=== PATIENT | female | born 1980 | race Caucasian/White ===

== ENCOUNTER 2017-01-15 14:52 | Inpatient (IN) | payer OTHER ==
[~2017-01-15] VITALS: Ht 172.7 cm; Wt 87.5 kg
[~2017-01-15 14:52] MED LIST: /DULO30CA OR; /PROM25SU; ACET30TA PO; ASTELIN NASAL; ATARAX25 PO; BENT20TA PO; CLARITIN10 PO; CLON1TAB PO; DARVOCET-N PO; EFFE150C PO; EFFEXOR XR PO; FENT100D25; FLAG250T PO; LOTRCRE; MIRA255PW PO; MOBIC15 PO; NAPROS500 PO; NEXIUM40 PO; NIZORALCR TOP; NORCO PO; OPTIVAR OPTHALMIC; PAXI40TA; PEPC20TA2; PERC5TAB8; PHENERGAN; PHENERGAN PO; PRIL20CA9 PO; PROM125TA PO; PROZ20CA11 PO; REGLAN10 PO; SENO8.6T9 PO; TORADOL PO; TRAM50TA2; TYLENOL#3 PO; VICO5TA PO; XANA0.25; XANA0.25 PO; XANA1TAB2 PO; ZOLO100T PO; ZOLO50TA PO; [UNRECOGNIZED DRUG - CODE] PO
[2017-01-15 15:48] LABS: MEAN CORPUSCULAR HEMOGLOBIN 31.7 pg (27.0-33.0); MEAN CORPUSCULAR HGB CONC 34.1 g/dl (32.0-36.5); RED CELL DISTRIBUTION WIDTH 12.9 % (11.5-14.5); WHITE BLOOD COUNT 9.5 K/mm3 (4.0-10.0)
[2017-01-15 16:08] LABS: CONTROL LINE HCG INT CTR LINE PRESENT
[2017-01-15 16:25] LABS: ALBUMIN 3.8 GM/DL (3.2-5.2); ALBUMIN/GLOBULIN RATIO 1.03 (1.00-1.93); ALKALINE PHOSPHATASE 96 U/L (45-117); ALT/SGPT 53 U/L (12-78); ANION GAP 10 MEQ/L (8-16); AST/SGOT 23 U/L (15-37); BILIRUBIN,DIRECT < 0.1 MG/DL (0.0-0.2); BILIRUBIN,TOTAL 0.4 MG/DL (0.2-1.0); BLOOD UREA NITROGEN 9 MG/DL (7-18); CARBON DIOXIDE LEVEL 23 MEQ/L (21-32); CHLORIDE LEVEL 105 MEQ/L (98-107); CREATININE FOR GFR 0.77 MG/DL (0.55-1.02); GLOMERULAR FILTRATION RATE > 60.0 (>60); GLUCOSE, FASTING 105 MG/DL (70-105); POTASSIUM SERUM 3.9 MEQ/L (3.5-5.1); SODIUM LEVEL 138 MEQ/L (136-145); TOTAL PROTEIN 7.5 GM/DL (6.4-8.2)
--- NOTE | 2017-01-15 18:22 | ECGEPIP ---
Stationary ECG Study [facility] - ED Test Date: 2017-01-15 Pat Name: SEGUNDO MCLAUGHLIN Department: Room: - Gender: F Billing Supervisor: DENIA : 1980 Requested By: ESTEBAN Gracia Order Number: [id number] Reading MD: Hank Gaming Measurements Intervals [place] Rate: 59 P: 3 RI: 149 QRS: 59 QRSD: 92 T: 40 QT: 410 QTc: 407 Interpretive Statements SINUS BRADYCARDIA WITH SINUS ARRHYTHMIA Electronically Signed On 01-15-2017 18:22:25 EST by Hank Gaming
[2017-01-15 19:47] LABS: AMPHETAMINES LEVEL URINE NEGATIVE (NEGATIVE); BENZODIAZEPINES URINE NEGATIVE (NEGATIVE); COCAINE METABOLITE URINE NEGATIVE (NEGATIVE); CONTROL LINE INT CTR LINE PRESENT; METHADONE URINE NEGATIVE (NEGATIVE); OPIATES URINE NEGATIVE (NEGATIVE); TRICYCLIC ANTIDEPRESS URINE NEGATIVE (NEGATIVE)
[2017-01-15] MEDS: SERTRALINE 100 MG TAB PO SCH (21:00)
[2017-01-15] MEDS ORDERED: LORazepam 1 MG TAB As Ordered ONE (21:06)
[2017-01-15] MEDS ORDERED: ONDANSETRON 4 MG ORAL DISINTEGRATING TAB (S0181) As Ordered ONE (22:35)
[2017-01-15] MEDS ORDERED: SERT-138 PO (23:14)
[2017-01-15] MEDS ORDERED: SUBO8MIS SL (23:14)
[2017-01-15] MEDS ORDERED: XANA1TAB2 PO (23:14)
[2017-01-15] MEDS ORDERED: DIPH50CA PO (23:14)
[2017-01-15] MEDS ORDERED: diphenhydrAMINE INJ 50MG/ML VIAL (J1200) As Ordered ONE (23:25)
[2017-01-15] MEDS ORDERED: HALOPERIDOL 5 MG/ML VIAL (J1630) As Ordered ONE (23:25)
[2017-01-16] MEDS ORDERED: NICOTINE 21MG/24HR 1 EA TRANSDERMAL As Ordered ONE (00:18)
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
--- NOTE | 2017-01-16 01:37 | EDDOCDS ---
Physician Documentation [facility] Name: Lyndsay Baugh Age: 36 yrs Sex: Female : 1980 Arrival Date: 01/15/2017 Time: 14:52 Bed U2 Private MD: Disposition: 01/15/17 22:46 Hospitalization ordered by Heriberto Bauman for Inpatient Admission. Preliminary diagnosis is Major depressive disorder, recurrent. - Bed requested for Admit. - Status is Inpatient Admission. sls1 - Condition is Stable. - Problem is an ongoing problem. - Symptoms have improved. Historical: - Allergies: Codeine Sulfateabdominal pain; Latex (Rash); Levaquin (Rash); Morphine (did not relieve pain)anxiety and makes the pain worse; Reglan (anxious); SULFA (SULFONAMIDES) (Rash); Zofrandoesn't work for her anymore; - Home Meds: 1. Effexor XR 75 mg Oral cp24 1 cap once daily 2. Klonopin 1 mg Oral tab 1 tab four times a day 3. SUBOXONE 8 MG daily - PMHx: Anxiety; Depression; Substance Abuse; - PSHx: Tonsillectomy; D & C; Cholecystectomy; (December 07, 2015); - Social history: Smoking status: Patient uses tobacco products, heavy tobacco smoker. No barriers to communication noted. - Family history: Not pertinent. - : The pt / caregiver states he / she is not on anticoagulants. Home medication list is obtained from the patient. - Exposure Risk Screening:: None identified. HELMET COVERER: 01/15 15:05 PT UNSURE OF LMP. STATES, "IT WAS SOMETIME RECENT". mb9 Vital Signs: 15:05 BP 148 / 82; Pulse 73; Resp 17; Temp 97.4(T); Pulse Ox 98% ; Weight 81.65 kg / 180.01 mb9 lbs; Height 5 ft. 8 in. (172.72 cm); Pain 0/10; 15:37 BP 130 / 78 (auto/); js13 15:37 Pulse 73 MON; Resp 14; Pulse Ox 98% on R/A; js13 15:45 BP 128 / 68 (auto/); js13 15:45 Pulse 69 MON; Resp 14; Pulse Ox 100% on R/A; js13 16:00 BP 126 / 71 (auto/); js13 16:00 Pulse 79 MON; Resp 14; Pulse Ox 100% on R/A; js13 16:14 Pulse 73 MON; Resp 14; Pulse Ox 98% on R/A; js13 16:15 BP 126 / 58 (auto/); js13 21:48 BP 138 / 78; Pulse 73; Resp 20; Temp 98.5; Pulse Ox 97% ; Pain 9/10; mas 01/16 01:33 BP 129 / 72; Pulse 81; Resp 18; Temp 98.1(T); Pulse Ox 98% ; Pain 7/10; mas 01/15 15:05 Body Mass Index 27.37 (81.65 kg, 172.72 cm) mb9 MDM: 01/15 14:56 Consult PFS/PSA/Media Services Specialist ordered. ml6 14:56 Consult PFS/PSA/Media Services Specialist: Patient's case requires discussion with on-call ml6 Psychiatrist ordered. 14:56 PSA/PFS to call Nursing [employer], to enter patient data on [place] Safe Act if patient ml6 involuntarily admitted or transferred for SI or HI ordered. 14:56 Confirm accurate psychiatric medication list and times of last dosage ordered. ml6 14:56 Detain Pt Until Medically/PFS Cleared ordered. ml6 14:57 Acetaminophen Level Ordered. EDMS 14:57 Basic Metabolic Profile Ordered. EDMS 14:57 Complete Blood Count Ordered. EDMS 14:57 Drug Eval Toxicology ED Only Ordered. EDMS 14:57 Ethyl Alcohol (ethanol) Ordered. EDMS 14:57 HCG,Serum Qualitative Ordered. EDMS 14:57 Liver Profile Ordered. EDMS 14:57 Salicylate Level Ordered. EDMS 14:57 Thyroid Stimulating Hormone Ordered. EDMS 15:26 ECG WITH READING ER PHYS+CARDIAG ordered. EDMS 15:26 IV Saline Lock ordered. br1 15:26 Director Of Corporate Responsibility/Pulse Ox/q 30 min VS ordered. br1 15:26 Call Poison Control ordered. br1 15:41 NS 0.9% 1000 ml IV at 100 mL/hr continuous ordered. br1 16:53 Acetaminophen Level Reviewed. br1 16:53 Salicylate Level Reviewed. br1 16:53 Thyroid Stimulating Hormone Reviewed. br1 16:53 Basic Metabolic Profile Reviewed. br1 16:53 Complete Blood Count Reviewed. br1 16:53 Ethyl Alcohol (ethanol) Reviewed. br1 16:53 HCG,Serum Qualitative Reviewed. br1 16:53 Liver Profile Reviewed. br1 17:55 Financial registration complete. gjb 18:05 [facility] Payment Agreement was scanned into [employer] and attached to record. gjb 19:03 EKG-ADULT Reviewed. br1 19:41 Consult PFS/PSA/Media Services Specialist complete. ml4 19:41 Consult PFS/PSA/Media Services Specialist: Patient's case requires discussion with on-call ml4 Psychiatrist complete. 19:41 PSA/PFS to call Nursing [employer], to enter patient data [place] Safe [place] if patient ml4 involuntarily admitted or transferred for SI or HI complete. 19:56 Drug Eval Toxicology ED Only Reviewed. cs11 19:57 Consult PFS/PSA/Socail Worker: Cleared medically for eval ordered. cs11 20:56 LORazepam 1 mg PO once ordered. cs11 21:02 Admit to [facility]: ordered. EDMS 21:24 [facility] Legal paperwork was scanned into [employer] and attached to record. ml4 21:27 Ondansetron ODT Oral Disintegrating Tablet 8 mg PO once ordered. cs11 21:32 Consult PFS/PSA/Socail Worker: Cleared medically for eval complete. ml4 22:43 Nicotine Patch 21 mg/24 hr 1 applic Transdermal once ordered. cs11 22:47 BED REQUEST+ADM ordered. EDMS 23:22 diphenhydrAMINE 25 mg IM once ordered. cs11 23:22 -Haloperidol Lactate 2.5 mg IM once ordered. cs11 Administered Medications: 15:43 Drug: NS 0.9% 1000 ml [sodium chloride 0.9 % intravenous solution] Route: IV; Rate: 100 js13 mL/hr; Site: right forearm; 21:10 Drug: LORazepam 1 mg [lorazepam 1 mg tablet (1 tabs)] Route: PO; sls1 22:42 Drug: Ondansetron ODT 8 mg [ondansetron 4 mg disintegrating tablet (2 tabs)] Route: PO; af2 01/16 00:23 Follow up: Response: No significant change. af2 01/15 23:21 CANCELLED (Other Intervention Used): Metoclopramide 10 mg PO once cs11 23:31 Drug: -Haloperidol Lactate 2.5 mg [haloperidol lactate 5 mg/mL injection solution (0.5 af2 mL)] Route: IM; Site: left deltoid; 01/16 00:23 Follow up: Response: Anxiety is improved af2 01/15 23:32 Drug: diphenhydrAMINE 25 mg [diphenhydramine 50 mg/mL injection solution (0.5 mL)] af2 Route: IM; Site: right deltoid; 01/16 00:23 Follow up: Response: Anxiety is improved af2 00:35 Drug: Nicotine 1 applic [nicotine 21 mg/24 hr daily transdermal patch (1 patches)] af2 Route: Transdermal; Site: left upper arm; Signatures: Dispatcher [employer] EDMS Chantelle Manning, PSA PSA ml4 Jorge Alberto Pena MD MD br1 Aidan Fatima RN RN ml6 Yessy Mcleod RN RN sls1 Tabatha SethRN RN js13 Gatito Marshall, DO cs11 Ronald AburtoRN RN mb9 Maria A Taylor Amber RN af2 The chart was reviewed and I authenticate all verbal orders and agree with the evaluation and treatment provided.Corrections: (The following items were deleted from the chart) 01/15 23:21 22:46 Metoclopramide 10 mg PO once ordered. cs11 cs11 Attachments: 18:05 [facility] Payment Agreement gera MTDD
[2017-01-16] MEDS ORDERED: MOM 30ML SUSPENSION UDC PO PRN (02:15)
[2017-01-16] MEDS ORDERED: ACETAMINOPHEN TAB 650MG DOSE (2X325MG) PO PRN (02:15)
[2017-01-16 03:35] VITALS: BP 154/98
[2017-01-16] MEDS ORDERED: ALPRAZolam 0.5 MG TAB PO ONE (03:45)
[2017-01-16] MEDS: SERTRALINE 100 MG TAB PO SCH (07:50)
[2017-01-16] MEDS: BUPRENORPHINE/NALOXONE 8-2MG SUBLINGUAL TABLET(SUBOXONE) SL SCH (07:51)
[2017-01-16] MEDS: NICOTINE 21MG/24HR 1 EA TRANSDERMAL TD SCH (07:51)
[2017-01-16] MEDS ORDERED: ALPRAZolam 0.25 MG TAB PO SCH (09:00)
[2017-01-16] MEDS: HYDROCORTISONE 1% CREAM 30 GM TOP SCH ×2 (09:00→21:29)
--- NOTE | 2017-01-16 11:14 | HPEPDOC ---
Medical History and Physical Date of Admission Jan 16, 2017 at 01:40 History and Physical PCP: Dr Linda Rhodes ATTENDING: Dr. Primitivo Logan HPI: 36yoF admitted to [facility] for MDD, being medically examined today. Patient states she has had some vomiting. Also some diarrhea. She has felt some chills. She denies fever. Denies any weakness, fatigue, LACEY, CP, SOB, cough, palpitations , abdominal pain, N/V/D or changes in bowel or bladder habits. PMHx: Anxiety Depression Substance use currently on Suboxone prescribed by Dr. Moreno [facility] monthly. Insomnia Tobacco use PSHX: Tonsillectomy D&C Cholecystectomy SOCHX: Resides in: [place] Marital Status: Kids: 1 Employment: Unemployed Tobacco use: One pack per day ETOH: Denies Illicit Drugs: Heroin 15 years IV Drug Use: Heroin Patient states screened for HIV and hepatitis within the past 9 months, negative. Declines rescreening. Tattoos done unprofessionally: Denies FAMHX: Mother: Alive, well Father: Alive, history of substance use Siblings: Alive, well Children: Alive, well Unexpected deaths due to medical reasons: None. ROS: As noted in HPI, otherwise 11pt ROS of systems reviewed and remarkable only for LMP unknown PE: GEN: 36 yo F, appears stated age. Well-nourished, well developed. No acute distress. Alert and oriented x 3. Pleasant, interactive. HEENT: Normocephalic, atraumatic. Pupils are equal, round, and reactive to light. Extraocular movements are intact. No nystagmus appreciated. Sclera are nonicteric. Conjunctiva without injection. Nose midline. Nasal turbinates without bogginess. EACs both patent BL. TMs both visualized and epperson with good cone of light, no bulging or erythema. No facial asymmetry. Moist mucous membranes. Dentition fair. Pharynx pink and moist, no cobblestoning. Neck supple , trachea midline. No lymphadenopathy or thyromegaly appreciated. CHEST: Regular rate and rhythm, +S1, +S2 LUNGS: Clear to auscultation bilaterally. No wheezes, rales, or rhonchi. Breathing appears symmetric and easy. Patient is speaking in full sentences. No accessory muscle use. ABD: Round, soft, non-tender, non-distended. +Bowel sounds throughout. No rebound or guarding. No costovertebral angle tenderness. EXT: Pulses 2+ bilaterally dorsalis pedis and radial. No lower extremity edema appreciated. SKIN: [place], dry, warm. Capillary refill <2sec. Excoriation is noted at the right hand, mild erythema, no other rashes. NEURO: Alert and oriented x 3. Cranial nerves III-XII are intact. No focal deficits appreciated. EK01/16/17 SR with SA 59 bpm. A&P: 36yoF admitted to [facility] for MDD, 1. Psych. Plan per Psychiatry. EKG on file. 2. Nicotine dependence. Patch available. 3. Abnormal TSH. Recheck TSH and free T4. 4. Follow up with PCP on discharge. Dr Rhodes. 5. Substance use. Per psychiatry. 6. Diarrhea. Patient with no abdominal pain currently. States she is eating and drinking well. GI panel with recurrent symptoms. 7. Rash, right hand. Apply hydrocortisone cream twice a day as needed. 8. Staff member present throughout exam, Albertina VILLALOBOS. Vital Signs Vital Signs Label Value Date Time Patient Temperature 97.6 degrees F 01/16/17 0335 Pulse 102 01/16/17 0335 Respiratory Rate 20 bpm 01/16/17 0335 Blood Pressure Assessment 154/98 (116) 01/16/17 0335 Laboratory Data Labs 24H Laboratory Tests 2 01/15/17 15:38: Acetaminophen Level < 2.0L, Aspartate Amino Transf (AST/SGOT) 23, Alanine Aminotransferase (ALT/SGPT) 53, Alkaline Phosphatase 96, Total Bilirubin 0.4, Direct Bilirubin < 0.1, Albumin 3.8, Albumin/Globulin Ratio 1.03, Anion Gap 10, Calcium Level 9.0, Ethyl Alcohol Level < 0.003, Glomerular Filtration Rate > 60.0, Human Chorionic Gonadotropin, Qual NEGATIVE, Salicylates Level 3.9L, Thyroid Stimulating Hormone (TSH) 0.303L, Total Protein 7.5 01/15/17 18:48: Urine Amphetamine Level NEGATIVE, Urine Benzodiazepines Screen NEGATIVE, Urine Cannabinoids NEGATIVE, Urine Cocaine Metabolite NEGATIVE, Urine Opiates Screen NEGATIVE, Urine Barbiturates, Qualitative NEGATIVE, Urine Methadone Screen NEGATIVE, Urine Tricyclic Antidepressants NEGATIVE CBC/BMP Laboratory Tests 01/15/17 15:38 Red Blood Count 4.87, Mean Corpuscular Volume 93.0, Mean Corpuscular Hemoglobin 31.7, Mean Corpuscular Hemoglobin Concent 34.1, Red Cell Distribution Width 12.9 Home Medications Scheduled Alprazolam (Xanax) 1 Mg Tab 1 MG PO QID Buprenorphine/Naloxone (Suboxone 8-2 mg) 1 Mis Mis 1 MIS SL DAILY Diphenhydramine HCl (Diphenhydramine HCl) 50 Mg Cap 50 MG PO QHS Sertraline HCl (Sertraline HCl) 100 Mg Tab 100 MG PO BID Allergies Coded Allergies: Codeine (Verified Allergy, Intermediate, SWELLING (non-specified), 03/01/13) Cephalosporins (Verified Allergy, Mild, POSSIBLY RASH, 03/01/13) Quinolones (Verified Allergy, Mild, POSSIBLE RASH, 03/01/13) Sulfa Drugs (Verified Allergy, Mild, RASH, 03/01/13) Sulfa Drugs Cross Reactors (Verified Allergy, Mild, RASH, 03/01/13) Latex (Verified Allergy, Unknown, 03/01/13) Ondansetron (Unverified Allergy, Unknown, 01/15/17) Metoclopramide (Verified Adverse Reaction, Mild, ANXIETY, 03/01/13) Samantha Melvin Jan 16, 2017 11:13
[2017-01-16 13:46] VITALS: BP 135/82
[2017-01-16] MEDS: MAALOX 30 ML SUSP *UDC PO PRN (14:26)
[2017-01-16] MEDS: ALPRAZolam 0.5 MG TAB PO SCH ×2 (17:09→21:28)
[2017-01-16 18:00] VITALS: BP 112/67
[2017-01-16] MEDS: diphenhydrAMINE 50 MG CAP PO SCH (21:28)
[2017-01-16] MEDS: traZODone 50 MG TAB PO PRN (21:31)
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
[2017-01-17 06:14] VITALS: BP 107/68
[2017-01-17 07:36] LABS: FREE T4 1.05 NG/DL (0.76-1.46)
[2017-01-17] MEDS: BUPRENORPHINE/NALOXONE 8-2MG SUBLINGUAL TABLET(SUBOXONE) SL SCH (08:22)
[2017-01-17] MEDS: HYDROCORTISONE 1% CREAM 30 GM TOP SCH ×2 (08:22→21:00)
[2017-01-17] MEDS: ALPRAZolam 0.5 MG TAB PO SCH ×4 (08:22→22:01)
[2017-01-17] MEDS: SERTRALINE 100 MG TAB PO SCH (08:22)
[2017-01-17] MEDS: NICOTINE 21MG/24HR 1 EA TRANSDERMAL TD SCH (08:23)
--- NOTE | 2017-01-17 16:46 | IPNPDOC ---
[facility] Progress Note Progress Note DATE OF SERVICE: 01/17/17 Subjective: Patient reports her mood as "pretty good". She is linear in TP and appropriate in TC. Patient denies SI/HI and AH/VH. Patient is med compliant and reports no med s/e's. Patient is attending groups and is visible in the milieu. Patient reports sleep and appetite are wnl. She is focused on seeing her son and again denies a med OD or SA. Objective: VITAL SIGNS: See below. NEW TEST RESULTS: See below. CURRENT MEDICATIONS: See below. MENTAL STATUS EXAMINATION: Patient is a [36]-year old female, who is [pleasant, cooperative, well kempt], [ tall, moderate build Speech: Is normal in rate, volume, and articulation, and is coherent and spontaneous]. Language skills are [intact]. Thought processes including: [clear,Goal directed]. Thought content: [logical. Abstract reasoning, and computation: . Description of associations: intact]. Description of abnormal or psychotic thoughts: [NO hallucinations, delusions, preoccupation with violence, homicidal or suicidal ideation, and obsessions]. Judgment: [fair]. Insight: [fair ]. Orientation to [time, place and person]. Recent and remote memory: [Immediate, short-term and long-term memory is intact] . Attention span and concentration: [fair]. Language: [Normal]. Fund of knowledge: [good]. Mood: pretty good Affect: full ASSESSMENT: Depressive d/o, unspecified Anxiety d/o, unspecified Opioid use d/o, in Suboxone therapy PLAN: [-Continue psychotropic regimen as currently written]. TIME SPENT: 30 minutes. Vital Signs Vital Signs Date Time Temp Pulse Resp B/P Pulse Ox O2 Delivery O2 Flow Rate FiO2 01/17/17 06:14 98.9 62 16 107/68 Laboratory Data 24H Labs Laboratory Tests 2 01/17/17 06:44: Free Thyroxine 1.05, Thyroid Stimulating Hormone (TSH) 0.966 Current Medications Current Medications Acetaminophen (Tylenol Tab) 650 mg Q6HP PRN PO HEADACHE or DISCOMFORT; Start at 02:15; Stop 02/15/17 at 02:14 Al Hydrox/Mg Hydrox/Simethicone (Mylanta) 30 ml Q4HP PRN PO HEARTBURN/ INDIGESTION Last administered on 01/16/17 14:26; Start 01/16/17 at 02:15; Stop 02/15/17 at 02:14 Alprazolam (Xanax) 1 mg QID PO Last administered on 01/16/17 07:51; Start at 09:00; Stop 01/16/17 at 17:03; Status DC Alprazolam (Xanax) 1 mg QID PO Last administered on 01/17/17 16:34; Start at 17:00; Stop 01/23/17 at 08:59 Buprenorphine/ Naloxone (Suboxone 8/2mg) 1 tab DAILY SL Last administered on 08:22; Start 01/16/17 at 09:00; Stop 01/23/17 at 08:59 Diphenhydramine HCl (Benadryl) 50 mg QHS PO Last administered on 01/16/17 21: 28; Start 01/16/17 at 21:00; Stop 02/15/17 at 20:59 Home Med (Med Rec Complete!) ASDIRECTED XX ; Start 01/15/17 at 23:30; Stop at 01:47; Status DC Hydrocortisone (Hydrocortisone 1% Cream) 1 dose BID TOP Last administered on 08:22; Start 01/16/17 at 09:00; Stop 02/15/17 at 08:59 Magnesium Hydroxide (Milk Of Magnesia) 30 ml DAILYPRN PRN PO CONSTIPATION; Start 01/16/17 at 02:15; Stop 02/15/17 at 02:14 Nicotine (Nicoderm Cq 21mg) 1 patch DAILY TD ; Start 01/16/17 at 09:00; Stop at 08:59 Sertraline HCl (Zoloft) 100 mg BID PO Last administered on 01/16/17 07:50; Start 01/15/17 at 21:00; Stop 01/16/17 at 19:41; Status DC Sertraline HCl (Zoloft) 200 mg DAILY PO Last administered on 01/17/17 08:22; Start 01/17/17 at 09:00; Stop 02/16/17 at 08:59 Trazodone HCl (Desyrel) 50 mg QHSP PRN PO INSOMNIA Last administered on t 21:31; Start 01/16/17 at 02:15; Stop 02/15/17 at 02:14 Allergies Coded Allergies: Codeine (Verified Allergy, Intermediate, SWELLING (non-specified), 03/01/13) Cephalosporins (Verified Allergy, Mild, POSSIBLY RASH, 03/01/13) Quinolones (Verified Allergy, Mild, POSSIBLE RASH, 03/01/13) Sulfa Drugs (Verified Allergy, Mild, RASH, 03/01/13) Sulfa Drugs Cross Reactors (Verified Allergy, Mild, RASH, 03/01/13) Latex (Verified Allergy, Unknown, 03/01/13) Ondansetron (Unverified Allergy, Unknown, 01/15/17) Metoclopramide (Verified Adverse Reaction, Mild, ANXIETY, 03/01/13) BEBA SARAH MD Jan 17, 2017 16:46
[2017-01-17 18:00] VITALS: BP 107/58
[2017-01-17] MEDS: diphenhydrAMINE 50 MG CAP PO SCH (21:48)
[2017-01-17] MEDS: traZODone 50 MG TAB PO PRN (22:05)
[2017-01-17] MEDS: MAALOX 30 ML SUSP *UDC PO PRN (22:21)
--- NOTE | 2017-01-18 02:36 | EDDOCDS ---
Physician Documentation [facility] Name: Lyndsay Baugh Age: 36 yrs Sex: Female : 1980 Arrival Date: 01/15/2017 Time: 14:52 Bed U2 Private MD: Disposition: 01/15/17 22:46 Hospitalization ordered by Heriberto Bauman for Inpatient Admission. Preliminary diagnosis is Major depressive disorder, recurrent. - Bed requested for Admit. - Status is Inpatient Admission. sls1 - Condition is Stable. - Problem is an ongoing problem. - Symptoms have improved. Historical: - Allergies: Codeine Sulfateabdominal pain; Latex (Rash); Levaquin (Rash); Morphine (did not relieve pain)anxiety and makes the pain worse; Reglan (anxious); SULFA (SULFONAMIDES) (Rash); Zofrandoesn't work for her anymore; - Home Meds: 1. Effexor XR 75 mg Oral cp24 1 cap once daily 2. Klonopin 1 mg Oral tab 1 tab four times a day 3. SUBOXONE 8 MG daily - PMHx: Anxiety; Depression; Substance Abuse; - PSHx: Tonsillectomy; D & C; Cholecystectomy; (December 07, 2015); - Social history: Smoking status: Patient uses tobacco products, heavy tobacco smoker. No barriers to communication noted. - Family history: Not pertinent. - : The pt / caregiver states he / she is not on anticoagulants. Home medication list is obtained from the patient. - Exposure Risk Screening:: None identified. PLATE TAKE OUT WORKER: 01/15 15:05 PT UNSURE OF LMP. STATES, "IT WAS SOMETIME RECENT". mb9 Vital Signs: 15:05 BP 148 / 82; Pulse 73; Resp 17; Temp 97.4(T); Pulse Ox 98% ; Weight 81.65 kg / 180.01 mb9 lbs; Height 5 ft. 8 in. (172.72 cm); Pain 0/10; 15:37 BP 130 / 78 (auto/); js13 15:37 Pulse 73 MON; Resp 14; Pulse Ox 98% on R/A; js13 15:45 BP 128 / 68 (auto/); js13 15:45 Pulse 69 MON; Resp 14; Pulse Ox 100% on R/A; js13 16:00 BP 126 / 71 (auto/); js13 16:00 Pulse 79 MON; Resp 14; Pulse Ox 100% on R/A; js13 16:14 Pulse 73 MON; Resp 14; Pulse Ox 98% on R/A; js13 16:15 BP 126 / 58 (auto/); js13 21:48 BP 138 / 78; Pulse 73; Resp 20; Temp 98.5; Pulse Ox 97% ; Pain 9/10; mas 01/16 01:33 BP 129 / 72; Pulse 81; Resp 18; Temp 98.1(T); Pulse Ox 98% ; Pain 7/10; mas 01/15 15:05 Body Mass Index 27.37 (81.65 kg, 172.72 cm) mb9 MDM: 01/15 14:56 Consult PFS/PSA/Dairy Nutritionist ordered. ml6 14:56 Consult PFS/PSA/Dairy Nutritionist: Patient's case requires discussion with on-call ml6 Psychiatrist ordered. 14:56 PSA/PFS to call Nursing Internet Marketing Strategist, to enter patient data on [place] Safe [place] if patient ml6 involuntarily admitted or transferred for SI or HI ordered. 14:56 Confirm accurate psychiatric medication list and times of last dosage ordered. ml6 14:56 Detain Pt Until Medically/PFS Cleared ordered. ml6 14:57 Acetaminophen Level Ordered. EDMS 14:57 Basic Metabolic Profile Ordered. EDMS 14:57 Complete Blood Count Ordered. EDMS 14:57 Drug Eval Toxicology ED Only Ordered. EDMS 14:57 Ethyl Alcohol (ethanol) Ordered. EDMS 14:57 HCG,Serum Qualitative Ordered. EDMS 14:57 Liver Profile Ordered. EDMS 14:57 Salicylate Level Ordered. EDMS 14:57 Thyroid Stimulating Hormone Ordered. EDMS 15:26 ECG WITH READING ER PHYS+CARDIAG ordered. EDMS 15:26 IV Saline Lock ordered. br1 15:26 Conversion Developer/Pulse Ox/q 30 min VS ordered. br1 15:26 Call Poison Control ordered. br1 15:41 NS 0.9% 1000 ml IV at 100 mL/hr continuous ordered. br1 16:53 Acetaminophen Level Reviewed. br1 16:53 Salicylate Level Reviewed. br1 16:53 Thyroid Stimulating Hormone Reviewed. br1 16:53 Basic Metabolic Profile Reviewed. br1 16:53 Complete Blood Count Reviewed. br1 16:53 Ethyl Alcohol (ethanol) Reviewed. br1 16:53 HCG,Serum Qualitative Reviewed. br1 16:53 Liver Profile Reviewed. br1 17:55 Financial registration complete. gjb 18:05 [facility] [place] was scanned into [employer] and attached to record. gjb 19:03 EKG-ADULT Reviewed. br1 19:41 Consult PFS/PSA/Dairy Nutritionist complete. ml4 19:41 Consult PFS/PSA/Dairy Nutritionist: Patient's case requires discussion with on-call ml4 Psychiatrist complete. 19:41 PSA/PFS to call Nursing Internet Marketing Strategist, to enter patient data [place] if patient ml4 involuntarily admitted or transferred for SI or HI complete. 19:56 Drug Eval Toxicology ED Only Reviewed. cs11 19:57 Consult PFS/PSA/Socail Worker: Cleared medically for eval ordered. cs11 20:56 LORazepam 1 mg PO once ordered. cs11 21:02 [facility]mit to [facility]: ordered. EDMS 21:24 [facility] Legal paperwork was scanned into [employer] and attached to record. ml4 21:27 Ondansetron ODT Oral Disintegrating Tablet 8 mg PO once ordered. cs11 21:32 Consult PFS/PSA/Socail Worker: Cleared medically for eval complete. ml4 22:43 Nicotine Patch 21 mg/24 hr 1 applic Transdermal once ordered. cs11 22:47 BED REQUEST+ADM ordered. EDMS 23:22 diphenhydrAMINE 25 mg IM once ordered. cs11 23:22 -Haloperidol Lactate 2.5 mg IM once ordered. cs11 01/16 12:17 T-Sheet-- Draft Copy was scanned into [employer] and attached to record. gb 12:17 ECG/EKG was scanned into [employer] and attached to record. gb Administered Medications: 01/15 15:43 Drug: NS 0.9% 1000 ml [sodium chloride 0.9 % intravenous solution] Route: IV; Rate: 100 js13 mL/hr; Site: right forearm; 21:10 Drug: LORazepam 1 mg [lorazepam 1 mg tablet (1 tabs)] Route: PO; sls1 22:42 Drug: Ondansetron ODT 8 mg [ondansetron 4 mg disintegrating tablet (2 tabs)] Route: PO; af2 01/16 00:23 Follow up: Response: No significant change. af2 01/15 23:21 CANCELLED (Other Intervention Used): Metoclopramide 10 mg PO once cs11 23:31 Drug: -Haloperidol Lactate 2.5 mg [haloperidol lactate 5 mg/mL injection solution (0.5 af2 mL)] Route: IM; Site: left deltoid; 01/16 00:23 Follow up: Response: Anxiety is improved af2 01/15 23:32 Drug: diphenhydrAMINE 25 mg [diphenhydramine 50 mg/mL injection solution (0.5 mL)] af2 Route: IM; Site: right deltoid; 01/16 00:23 Follow up: Response: Anxiety is improved af2 00:35 Drug: Nicotine 1 applic [nicotine 21 mg/24 hr daily transdermal patch (1 patches)] af2 Route: Transdermal; Site: left upper arm; Signatures: Dispatcher [employer] EDMS Natalya Easley, Reg Reg gb Chantelle Manning, PSA PSA ml4 Jorge Alberto Pena MD MD br1 Aidan Fatima RN RN ml6 Yessy Mcleod RN RN sls1 Tabatha SethRN RN js13 Gatito Marshall, DO cs11 Ronald AburtoRN RN mb9 Maria A Taylor b Penelope Robert RN af2 The chart was reviewed and I authenticate all verbal orders and agree with the evaluation and treatment provided.Corrections: (The following items were deleted from the chart) 01/15 23:21 22:46 Metoclopramide 10 mg PO once ordered. cs11 cs11 Attachments: 18:05 [facility] Payment Agreement [facility] 01/16 12:17 T-Sheet-- Draft Copy gb 12:17 ECG/EKG gb Chart [facility]
--- NOTE | 2017-01-18 02:36 | EDDOCDS ---
Physician Documentation [facility] Name: Lyndsay Baugh Age: 36 yrs Sex: Female : 1980 Arrival Date: 01/15/2017 Time: 14:52 Bed U2 Private MD: Disposition: 01/15/17 22:46 Hospitalization ordered by Heriberto Bauman for Inpatient Admission. Preliminary diagnosis is Major depressive disorder, recurrent. - Bed requested for Admit. - Status is Inpatient Admission. sls1 - Condition is Stable. - Problem is an ongoing problem. - Symptoms have improved. Historical: - Allergies: Codeine Sulfateabdominal pain; Latex (Rash); Levaquin (Rash); Morphine (did not relieve pain)anxiety and makes the pain worse; Reglan (anxious); SULFA (SULFONAMIDES) (Rash); Zofrandoesn't work for her anymore; - Home Meds: 1. Effexor XR 75 mg Oral cp24 1 cap once daily 2. Klonopin 1 mg Oral tab 1 tab four times a day 3. SUBOXONE 8 MG daily - PMHx: Anxiety; Depression; Substance Abuse; - PSHx: Tonsillectomy; D & C; Cholecystectomy; (December 07, 2015); - Social history: Smoking status: Patient uses tobacco products, heavy tobacco smoker. No barriers to communication noted. - Family history: Not pertinent. - : The pt / caregiver states he / she is not on anticoagulants. Home medication list is obtained from the patient. - Exposure Risk Screening:: None identified. 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 STATES, "IT WAS SOMETIME RECENT". mb9 Vital Signs: 15:05 BP 148 / 82; Pulse 73; Resp 17; Temp 97.4(T); Pulse Ox 98% ; Weight 81.65 kg / 180.01 mb9 lbs; Height 5 ft. 8 in. (172.72 cm); Pain 0/10; 15:37 BP 130 / 78 (auto/); js13 15:37 Pulse 73 MON; Resp 14; Pulse Ox 98% on R/A; js13 15:45 BP 128 / 68 (auto/); js13 15:45 Pulse 69 MON; Resp 14; Pulse Ox 100% on R/A; js13 16:00 BP 126 / 71 (auto/); js13 16:00 Pulse 79 MON; Resp 14; Pulse Ox 100% on R/A; js13 16:14 Pulse 73 MON; Resp 14; Pulse Ox 98% on R/A; js13 16:15 BP 126 / 58 (auto/); js13 21:48 BP 138 / 78; Pulse 73; Resp 20; Temp 98.5; Pulse Ox 97% ; Pain 9/10; mas 01/16 01:33 BP 129 / 72; Pulse 81; Resp 18; Temp 98.1(T); Pulse Ox 98% ; Pain 7/10; mas 01/15 15:05 Body Mass Index 27.37 (81.65 kg, 172.72 cm) mb9 MDM: 01/15 14:56 Consult PFS/PSA/Needle Setter ordered. ml6 14:56 Consult PFS/PSA/Needle Setter: Patient's case requires discussion with on-call ml6 Psychiatrist ordered. 14:56 PSA/PFS to call Nursing Textile Scrap Salvager, to enter [place] data [place] if patient ml6 involuntarily admitted or transferred for SI or HI ordered. 14:56 Confirm accurate psychiatric medication list and times of last dosage ordered. ml6 14:56 Detain Pt Until Medically/PFS Cleared ordered. ml6 14:57 Acetaminophen Level Ordered. EDMS 14:57 Basic Metabolic Profile Ordered. EDMS 14:57 Complete Blood Count Ordered. EDMS 14:57 Drug Eval Toxicology ED Only Ordered. EDMS 14:57 Ethyl Alcohol (ethanol) Ordered. EDMS 14:57 HCG,Serum Qualitative Ordered. EDMS 14:57 Liver Profile Ordered. EDMS 14:57 Salicylate Level Ordered. EDMS 14:57 Thyroid Stimulating Hormone Ordered. EDMS 15:26 ECG WITH READING ER PHYS+CARDIAG ordered. EDMS 15:26 IV Saline Lock ordered. br1 15:26 3Rd Pressman/Pulse Ox/q 30 min VS ordered. br1 15:26 Call Poison Control ordered. br1 15:41 NS 0.9% 1000 ml IV at 100 mL/hr continuous ordered. br1 16:53 Acetaminophen Level Reviewed. br1 16:53 Salicylate Level Reviewed. br1 16:53 Thyroid Stimulating Hormone Reviewed. br1 16:53 Basic Metabolic Profile Reviewed. br1 16:53 Complete Blood Count Reviewed. br1 16:53 Ethyl Alcohol (ethanol) Reviewed. br1 16:53 HCG,Serum Qualitative Reviewed. br1 16:53 Liver Profile Reviewed. br1 17:55 Financial registration complete. gjb 18:05 [facility] [place] was scanned into [employer] and attached to record. gjb 19:03 EKG-ADULT Reviewed. br1 19:41 Consult PFS/PSA/Needle Setter complete. ml4 19:41 Consult PFS/PSA/Needle Setter: Patient's case requires discussion with on-call ml4 Psychiatrist complete. 19:41 PSA/PFS to call Nursing Textile Scrap Salvager, to enter [place] if patient ml4 involuntarily admitted or transferred for SI or HI complete. 19:56 Drug Eval Toxicology ED Only Reviewed. cs11 19:57 Consult PFS/PSA/Socail Worker: Cleared medically for eval ordered. cs11 20:56 LORazepam 1 mg PO once ordered. cs11 21:02 Admit to [facility]: ordered. EDMS 21:24 [facility] Legal paperwork was scanned into [employer] and attached to record. ml4 21:27 Ondansetron ODT Oral Disintegrating Tablet 8 mg PO once ordered. cs11 21:32 Consult PFS/PSA/Socail Worker: Cleared medically for eval complete. ml4 22:43 Nicotine Patch 21 mg/24 hr 1 applic Transdermal once ordered. cs11 22:47 BED REQUEST+ADM ordered. EDMS 23:22 diphenhydrAMINE 25 mg IM once ordered. cs11 23:22 -Haloperidol Lactate 2.5 mg IM once ordered. cs11 01/16 12:17 T-Sheet-- Draft Copy was scanned into [employer] and attached to record. gb 12:17 ECG/EKG was scanned into [employer] and attached to record. gb Administered Medications: 01/15 15:43 Drug: NS 0.9% 1000 ml [sodium chloride 0.9 % intravenous solution] Route: IV; Rate: 100 js13 mL/hr; Site: right forearm; 21:10 Drug: LORazepam 1 mg [lorazepam 1 mg tablet (1 tabs)] Route: PO; sls1 22:42 Drug: Ondansetron ODT 8 mg [ondansetron 4 mg disintegrating tablet (2 tabs)] Route: PO; af2 01/16 00:23 Follow up: Response: No significant change. af2 01/15 23:21 CANCELLED (Other Intervention Used): Metoclopramide 10 mg PO once cs11 23:31 Drug: -Haloperidol Lactate 2.5 mg [haloperidol lactate 5 mg/mL injection solution (0.5 af2 mL)] Route: IM; Site: left deltoid; 01/16 00:23 Follow up: Response: Anxiety is improved af2 01/15 23:32 Drug: diphenhydrAMINE 25 mg [diphenhydramine 50 mg/mL injection solution (0.5 mL)] af2 Route: IM; Site: right deltoid; 01/16 00:23 Follow up: Response: Anxiety is improved af2 00:35 Drug: Nicotine 1 applic [nicotine 21 mg/24 hr daily transdermal patch (1 patches)] af2 Route: Transdermal; Site: left upper arm; Signatures: Dispatcher [employer] EDMS Natalya Easley, Reg Reg gb Chantelle Manning, PSA PSA ml4 Jorge Alberto Pena MD MD br1 Aidan Fatima RN RN ml6 Yessy Mcleod RN RN sls1 Tabatha SethRN RN js13 Gatito Marshall, DO cs11 Ronald AburtoRN RN mb9 Maria A Taylor b Penelope Robert RN af2 The chart was reviewed and I authenticate all verbal orders and agree with the evaluation and treatment provided.Corrections: (The following items were deleted from the chart) 01/15 23:21 22:46 Metoclopramide 10 mg PO once ordered. cs11 cs11 Attachments: 18:05 [facility] Payment Agreement [facility] 01/16 12:17 T-Sheet-- Draft Copy gb 12:17 ECG/EKG gb [facility]
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
[2017-01-18 06:39] VITALS: BP 92/52
[2017-01-18] MEDS: SERTRALINE 100 MG TAB PO SCH (08:24)
[2017-01-18] MEDS: BUPRENORPHINE/NALOXONE 8-2MG SUBLINGUAL TABLET(SUBOXONE) SL SCH (08:24)
[2017-01-18] MEDS: ALPRAZolam 0.5 MG TAB PO SCH ×4 (08:24→20:22)
[2017-01-18] MEDS: HYDROCORTISONE 1% CREAM 30 GM TOP SCH ×2 (08:25→20:22)
[2017-01-18] MEDS: NICOTINE 21MG/24HR 1 EA TRANSDERMAL TD SCH ×2 (08:25→18:57)
[2017-01-18 11:22] VITALS: BP 129/58
[2017-01-18 18:00] VITALS: BP 128/58
[2017-01-18] MEDS: traZODone 50 MG TAB PO PRN (20:21)
[2017-01-18] MEDS: diphenhydrAMINE 50 MG CAP PO SCH (20:22)
[2017-01-18 21:10] VITALS: BP 126/62
[2017-01-18] MEDS ORDERED: traZODone 100 MG TAB PO ONE (22:30)
[2017-01-19 06:17] VITALS: BP 88/50
[2017-01-19] MEDS: HYDROCORTISONE 1% CREAM 30 GM TOP SCH ×2 (08:59→21:00)
[2017-01-19] MEDS: NICOTINE 21MG/24HR 1 EA TRANSDERMAL TD SCH (09:00)
[2017-01-19] MEDS: ALPRAZolam 0.5 MG TAB PO SCH ×4 (09:01→21:28)
[2017-01-19] MEDS: SERTRALINE 100 MG TAB PO SCH (09:01)
[2017-01-19] MEDS: BUPRENORPHINE/NALOXONE 8-2MG SUBLINGUAL TABLET(SUBOXONE) SL SCH (09:01)
[2017-01-19 12:33] VITALS: BP 124/78
[2017-01-19 18:00] VITALS: BP 128/76
[2017-01-19] MEDS ORDERED: traZODone 100 MG TAB PO SCH (21:00)
[2017-01-19] MEDS: diphenhydrAMINE 50 MG CAP PO SCH (21:28)
[2017-01-20 06:35] VITALS: BP 138/80
[2017-01-20] MEDS: BUPRENORPHINE/NALOXONE 8-2MG SUBLINGUAL TABLET(SUBOXONE) SL SCH (08:52)
[2017-01-20] MEDS: SERTRALINE 100 MG TAB PO SCH (08:52)
[2017-01-20] MEDS: ALPRAZolam 0.5 MG TAB PO SCH ×2 (08:52→11:23)
[2017-01-20] MEDS: NICOTINE 21MG/24HR 1 EA TRANSDERMAL TD SCH (08:53)
[2017-01-20] MEDS: HYDROCORTISONE 1% CREAM 30 GM TOP SCH (08:54)
--- NOTE | 2017-01-20 09:47 | IPN ---
DATE: 01/18/2017 SUBJECTIVE: "I am feeling better, I am less anxious and I know that I have decrease my anxiety medication." OBJECTIVE: The patient is improving slowly. The patient is less depressed and anxious. There is no evidence of withdrawal from opiates. The patient is on a benzodiazepine taper and continues with Suboxone. The patient reports motivation to continue her treatment for chemical dependency once she is discharged from the unit and as an outpatient. MENTAL STATUS EXAMINATION: The patient is dressed in [facility]. The patient is cooperative during the examination and has fair eye contact. Speech is slow and monotone. Mood is depressed and anxious. Affect is restricted. No delusions or hallucinations. Memory is fair. The patient is fully oriented. Associations are intact. Thinking is logical. Thought content is appropriate. The patient is able to contract for safety. Denies suicidal or homicidal ideation during the interview. Insight and judgment is fair. ASSESSMENT: 1. Opiate dependency. 2. Benzodiazepine abuse. 3. Depression. PLAN: 1. Continue with Zoloft 200 mg by mouth daily. 2. Continue with Xanax taper. 3. Continue with Suboxone by mouth daily. 4. Continue with trazodone 50 mg by mouth at night.
[2017-01-20] MEDS ORDERED: NICO21PAT TD (10:42)
[2017-01-20] MEDS ORDERED: SERT-138 PO (11:28)
[2017-01-20] MEDS ORDERED: TRAZ10TA PO (11:28)
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
--- NOTE | 2017-01-20 16:55 | IPN ---
DATE: 01/19/2017 SUBJECTIVE: "I could not sleep well last night and I needed more medication." OBJECTIVE: The patient had to take 100 mg of trazodone extra last night because of insomnia. She is improving slowly. She is denying side effect from the medication. The taper of Xanax has started. No evidence of psychotic symptoms. The patient appears to be motivated for treatment. MENTAL STATUS EXAMINATION: The patient is dressed in [facility]. The patient is cooperative during exam. Speech is normal in rate, volume, articulation, is coherent and spontaneous. Mood is depressed and anxious but improving. Affect is congruent with mood. No delusions or hallucinations. Short and care home memory are intact. Patient is fully oriented. Associations are intact. Thinking is logical. Thought content is appropriate. The patient is able to contract for safety and denies suicidal or homicidal ideations during the interview. Insight and judgment are limited. ASSESSMENT: 1. Opiate dependency on Suboxone. 2. Depression. PLAN: 1. Start tapering of Xanax 1 mg by mouth three times a day plus 0.5 mg at 12 p.m. 2. Continue with Zoloft 200 mg by mouth daily. 3. Continue with Suboxone as she was taking at the Suboxone clinic. 4. Increase trazodone to 100 mg by mouth at bedtime.
== END 2017-01-20 13:45 | disposition home or self-care (01) | DRG 754 ==
LOC: M ED 14:52 → M PSY 01-16 01:40
PROVIDERS: ADMIT Psychiatry & Neurology Psychiatry; ATTEND Psychiatry & Neurology Psychiatry
DX: F32.9 Major depressive disorder, single episode, unspecified (principal); F41.9 Anxiety disorder, unspecified; T45.0X1A Poisoning by antiallergic and antiemetic drugs, accidental (unintentional), initial encounter; Y92.019 Unspecified place in single-family (private) house as the place of occurrence of the external cause; T40.4X1A Poisoning by other synthetic narcotics, accidental (unintentional), initial encounter; K21.9 Gastro-esophageal reflux disease without esophagitis; F11.20 Opioid dependence, uncomplicated; F17.210 Nicotine dependence, cigarettes, uncomplicated; G47.00 Insomnia, unspecified; R19.7 Diarrhea, unspecified; R21 Rash and other nonspecific skin eruption; Z79.899 Other long term (current) drug therapy; Z88.6 Allergy status to analgesic agent; Z88.1 Allergy status to other antibiotic agents; Z88.2 Allergy status to sulfonamides; Z88.8 Allergy status to other drugs, medicaments and biological substances; Z91.040 Latex allergy status

== ENCOUNTER 2017-03-18 08:25 | Emergency (ER) | payer OTHER ==
[~2017-03-18] VITALS: Ht 172.7 cm; Wt 86.2 kg
[~2017-03-18 08:25] MED LIST changes: +DIPH50CA PO; +NICO21PAT TD; +SERT-138 PO; +SUBO8MIS SL; +TRAZ10TA PO
[2017-03-18 08:29] VITALS: BP 137/83
[2017-03-18 09:13] LABS: MEAN CORPUSCULAR HEMOGLOBIN 30.3 pg (27.0-33.0); MEAN CORPUSCULAR HGB CONC 34.1 g/dl (32.0-36.5); RED CELL DISTRIBUTION WIDTH 12.7 % (11.5-14.5); WHITE BLOOD COUNT 14.8 K/mm3 (4.0-10.0)
[2017-03-18 09:27] LABS: CONTROL LINE HCG INT CTR LINE PRESENT
[2017-03-18] MEDS ORDERED: hydrOXYzine 25 MG TAB PO ONE (09:30)
[2017-03-18 09:44] LABS: ALBUMIN 4.1 GM/DL (3.2-5.2); ALKALINE PHOSPHATASE 104 U/L (45-117); ALT/SGPT 19 U/L (12-78); ANION GAP 14 MEQ/L (8-16); AST/SGOT 12 U/L (15-37); BILIRUBIN,DIRECT 0.1 MG/DL (0.0-0.2); BILIRUBIN,TOTAL 0.6 MG/DL (0.2-1.0); BLOOD UREA NITROGEN 9 MG/DL (7-18); CARBON DIOXIDE LEVEL 19 MEQ/L (21-32); CHLORIDE LEVEL 103 MEQ/L (98-107); CREATININE FOR GFR 0.98 MG/DL (0.55-1.02); GLOMERULAR FILTRATION RATE > 60.0 (>60); GLUCOSE, FASTING 176 MG/DL (70-105); POTASSIUM SERUM 3.1 MEQ/L (3.5-5.1); SODIUM LEVEL 136 MEQ/L (136-145); TOTAL PROTEIN 8.2 GM/DL (6.4-8.2)
--- NOTE | 2017-03-18 10:22 | REP ---
PA and lateral chest: Comparison is 02/26/2015. The lung barrera are clear. The cardiac size is normal The frannie, mediastinum, and bony thorax are unremarkable. Impression: Negative PA and lateral chest. There is no interval change. Signed by Jarrett Saavedra MD 03/18/2017 10:14 A
[2017-03-18 10:30] LABS: METHADONE URINE NEGATIVE (NEGATIVE)
[2017-03-18] MEDS ORDERED: PROMETHAZINE INJ 25 MG/ML VIAL (J2550) IM ONE (12:45)
[2017-03-18] MEDS ORDERED: ONDANSETRON 4 MG TAB (S0181) PO ONE (12:45)
[2017-03-18] MEDS ORDERED: diphenhydrAMINE INJ 50MG/ML VIAL (J1200) IM STA (13:21)
[2017-03-18] MEDS ORDERED: HYDR25T PO (14:33)
--- NOTE | 2017-03-18 20:14 | ECGEPIP ---
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
[2017-03-19] MEDS ORDERED: PHEN1SUP6 PR (06:37)
== END 2017-03-18 15:27 | disposition home or self-care (01) ==
LOC: EDBD 08:25 → M ED 10:35
DX: F41.9 Anxiety disorder, unspecified (principal); F11.21 Opioid dependence, in remission; Z79.899 Other long term (current) drug therapy; Z88.1 Allergy status to other antibiotic agents; Z88.2 Allergy status to sulfonamides; Z88.5 Allergy status to narcotic agent; Z88.8 Allergy status to other drugs, medicaments and biological substances; Z91.040 Latex allergy status
CPT/HCPCS: 71020; 80048; 80076; 80306; 84443; 84703; 85027; 93005; 96372; 99282; G0480; J1200

== ENCOUNTER 2017-03-19 01:37 | Emergency (ER) | payer OTHER ==
[~2017-03-19] VITALS: Ht 172.7 cm; Wt 81.6 kg
[~2017-03-19 01:37] MED LIST changes: +HYDR25T PO
[2017-03-19 01:40] VITALS: BP 160/84
[2017-03-19] MEDS ORDERED: PHEN1SUP6 PR (06:37)
== END 2017-03-19 03:15 | disposition left against medical advice (07) ==
LOC: M ED 02:50
DX: F41.9 Anxiety disorder, unspecified (principal); Z53.29 Procedure and treatment not carried out because of patient's decision for other reasons

== ENCOUNTER 2017-03-19 04:08 | Emergency (ER) | payer OTHER ==
[~2017-03-19] VITALS: Ht 172.7 cm; Wt 81.6 kg
[2017-03-19] MEDS ORDERED: PHEN1SUP6 PR (06:37)
[2017-03-19] MEDS ORDERED: hydrOXYzine INJ 50 MG/ML VIAL (J3410) IM ONE (06:45)
[2017-03-19] MEDS ORDERED: PROMETHAZINE INJ 25 MG/ML VIAL (J2550) IM ONE (06:45)
[2017-03-19 07:41] VITALS: BP 134/90
== END 2017-03-19 07:42 | disposition home or self-care (01) ==
LOC: M ED 06:49
DX: F11.23 Opioid dependence with withdrawal (principal); Z79.899 Other long term (current) drug therapy; Z88.0 Allergy status to penicillin; Z88.1 Allergy status to other antibiotic agents; Z88.2 Allergy status to sulfonamides; Z88.5 Allergy status to narcotic agent; Z91.040 Latex allergy status; F17.210 Nicotine dependence, cigarettes, uncomplicated
CPT/HCPCS: 96372; 99282; J3410

== ENCOUNTER 2017-06-19 15:01 | Emergency (ER) | payer OTHER ==
[~2017-06-19 15:01] MED LIST changes: +HYDR-3363 PO; -HYDR25T PO; +PHEN1SUP6 PR
[2017-06-19] MEDS ORDERED: PROM25SU (15:19)
[2017-06-19] MEDS ORDERED: ALPRAZolam 0.25 MG TAB PO ONE (16:30)
--- NOTE | 2017-06-19 17:08 | REP ---
CHEST, TWO VIEWS: HISTORY: Shortness of breath. COMPARISON: 03/18/2017 The lungs are clear. The heart is normal in size. The pulmonary vasculature is normal in appearance. The bony structure is intact. IMPRESSION: No acute disease. Signed by Antonio Vanegas MD 06/19/2017 05:13 P
[2017-06-19 17:38] LABS: BASO % 0.2 % (0.0-1.0); EOS # 0.1 K/mm3 (0.0-0.50); EOS % 0.7 % (0.0-3.0); LARGE UNSTAINED CELL # 0.1 K/mm3 (0.0-0.4); LARGE UNSTAINED CELL % 1.1 % (0.0-4.0); LYMPH # 1.4 K/mm3 (1.5-4.5); LYMPH % 13.6 % (24.0-44.0); MEAN CORPUSCULAR HEMOGLOBIN 31.5 pg (27.0-33.0); MEAN CORPUSCULAR HGB CONC 34.8 g/dl (32.0-36.5); MEAN CORPUSCULAR VOLUME 90.5 fl (80.0-96.0); MONO # 0.3 K/mm3 (0.0-0.8); NEUTROPHILS # 7.8 K/mm3 (1.8-7.7); NEUTROPHILS % 81.4 % (36.0-66.0); PLATELET COUNT, AUTOMATED 346 k/mm3 (150-450); RED CELL DISTRIBUTION WIDTH 12.6 % (11.5-14.5); WHITE BLOOD COUNT 9.6 K/mm3 (4.0-10.0)
[2017-06-19 18:01] LABS: ANION GAP 8 MEQ/L (8-16); BLOOD UREA NITROGEN 8 MG/DL (7-18); CALCIUM LEVEL 9.7 MG/DL (8.5-10.1); CARBON DIOXIDE LEVEL 24 MEQ/L (21-32); CHLORIDE LEVEL 103 MEQ/L (98-107); CREATININE FOR GFR 0.94 MG/DL (0.55-1.02); GLOMERULAR FILTRATION RATE > 60.0 (>60); GLUCOSE, FASTING 134 MG/DL (70-105); POTASSIUM SERUM 4.5 MEQ/L (3.5-5.1); SODIUM LEVEL 135 MEQ/L (136-145)
[2017-06-19 18:53] VITALS: BP 124/74
--- NOTE | 2017-06-20 07:36 | ECGEPIP ---
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
== END 2017-06-19 19:04 | disposition home or self-care (01) ==
LOC: M ED 15:01
DX: F41.1 Generalized anxiety disorder (principal); K21.9 Gastro-esophageal reflux disease without esophagitis; G89.29 Other chronic pain; R10.9 Unspecified abdominal pain; F32.9 Major depressive disorder, single episode, unspecified; Z88.1 Allergy status to other antibiotic agents; Z88.2 Allergy status to sulfonamides; Z88.5 Allergy status to narcotic agent; Z88.8 Allergy status to other drugs, medicaments and biological substances; Z91.040 Latex allergy status; Z79.899 Other long term (current) drug therapy

== ENCOUNTER 2017-07-18 06:23 | Emergency (ER) | payer OTHER ==
[~2017-07-18 06:23] MED LIST changes: +PROM25SU
[2017-07-18] MEDS ORDERED: LORazepam 2 MG/ML VIAL (J2060) IV STA ×2 (07:44→08:46)
[2017-07-18] MEDS ORDERED: ONDANSETRON 4MG/2ML VIAL (J2405) IV ONE (07:45)
[2017-07-18] MEDS ORDERED: NS 1,000 ML IV ONE (07:45)
[2017-07-18] MEDS ORDERED: ATIV1TAB10 PO (09:11)
[2017-07-18] MEDS ORDERED: ZOFR4TAB3 PO (09:14)
[2017-07-18 09:20] VITALS: BP 152/86
[2017-07-18] MEDS ORDERED: cloNIDine 0.1 MG TAB PO ONE (09:30)
[2017-07-18 09:41] VITALS: BP 142/86
== END 2017-07-18 09:46 | disposition home or self-care (01) ==
LOC: M ED 06:23
DX: F11.23 Opioid dependence with withdrawal (principal)
CPT/HCPCS: 96374; 96375; 96376; 99283; J2060; J2405

== ENCOUNTER 2017-08-11 10:03 | Inpatient (IN) | payer OTHER ==
[~2017-08-11] VITALS: Ht 170.2 cm; Wt 68.2 kg
[~2017-08-11 10:03] MED LIST changes: +ATIV1TAB10 PO; +ZOFR4TAB3 PO
[2017-08-11] MEDS ORDERED: cloNIDine HCL 0.3 MG/24 HR PATCH TOP STA (10:10)
[2017-08-11] MEDS ORDERED: KETOROLAC 30 MG/ML VIAL (J1885) IV ONE (10:15)
[2017-08-11] MEDS ORDERED: PROMETHAZINE INJ 25 MG/ML VIAL (J2550) IV ONE (10:15)
[2017-08-11] MEDS ORDERED: NS 1,000 ML IV ONE (10:15)
[2017-08-11 10:46] LABS: MEAN CORPUSCULAR HEMOGLOBIN 30.7 pg (27.0-33.0); MEAN CORPUSCULAR HGB CONC 33.4 g/dl (32.0-36.5); MEAN CORPUSCULAR VOLUME 91.9 fl (80.0-96.0); RED CELL DISTRIBUTION WIDTH 12.8 % (11.5-14.5); WHITE BLOOD COUNT 7.5 K/mm3 (4.0-10.0)
[2017-08-11 11:03] LABS: CONTROL LINE HCG INT CTR LINE PRESENT
[2017-08-11 11:27] LABS: ALBUMIN 4.1 GM/DL (3.2-5.2); ALBUMIN/GLOBULIN RATIO 0.95 (1.00-1.93); ALKALINE PHOSPHATASE 85 U/L (45-117); ALT/SGPT 34 U/L (12-78); ANION GAP 10 MEQ/L (8-16); AST/SGOT 16 U/L (15-37); BILIRUBIN,DIRECT 0.1 MG/DL (0.0-0.2); BILIRUBIN,TOTAL 0.5 MG/DL (0.2-1.0); BLOOD UREA NITROGEN 5 MG/DL (7-18); CALCIUM LEVEL 9.5 MG/DL (8.5-10.1); CARBON DIOXIDE LEVEL 24 MEQ/L (21-32); CHLORIDE LEVEL 107 MEQ/L (98-107); CREATININE FOR GFR 0.92 MG/DL (0.55-1.02); GLOMERULAR FILTRATION RATE > 60.0 (>60); GLUCOSE, FASTING 137 MG/DL (70-105); POTASSIUM SERUM 3.1 MEQ/L (3.5-5.1); SODIUM LEVEL 141 MEQ/L (136-145); TOTAL PROTEIN 8.4 GM/DL (6.4-8.2)
[2017-08-11] MEDS ORDERED: LORazepam 2 MG TAB PO STA (13:28)
[2017-08-11] MEDS ORDERED: POTASSIUM CHLORIDE 10 MEQ SR TABLET PO ONE (13:30)
[2017-08-11] MEDS ORDERED: PROMETHAZINE INJ 25 MG/ML VIAL (J2550) As Ordered ONE (14:49)
[2017-08-11] MEDS ORDERED: PROMETHAZINE INJ 25 MG/ML VIAL (J2550) IM ONE (15:00)
[2017-08-11] MEDS ORDERED: GI COCKTAIL 50ML BTL(HYOSCYAMINE/MAALOX/LIDOCAINE VISCOUS)(1:3:1) PO ONE (16:15)
[2017-08-11 17:55] LABS: METHADONE URINE NEGATIVE (NEGATIVE)
[2017-08-11] MEDS ORDERED: PATIENT COMMENT (19:00)
[2017-08-11 20:15] VITALS: BP 139/100
[2017-08-11] MEDS ORDERED: METHADONE 5 MG TAB (S0109) PO STA (20:32)
[2017-08-11] MEDS ORDERED: LORazepam 1 MG TAB PO STA (20:32)
[2017-08-11] MEDS ORDERED: LORazepam 1 MG TAB PO PRN (20:45)
[2017-08-11] MEDS ORDERED: MAALOX 30 ML SUSP *UDC PO PRN (20:45)
[2017-08-11] MEDS ORDERED: MOM 30ML SUSPENSION UDC PO PRN (20:45)
[2017-08-11 21:45] VITALS: BP 152/81
[2017-08-11 23:01] VITALS: BP 173/87
[2017-08-11] MEDS ORDERED: LORazepam 0.5 MG TAB PO ONE (23:15)
[2017-08-12 00:40] VITALS: BP 166/87
[2017-08-12] MEDS: ACETAMINOPHEN TAB 650MG DOSE (2X325MG) PO PRN (01:34)
[2017-08-12] MEDS: traZODone 50 MG TAB PO PRN (01:34)
[2017-08-12 07:40] VITALS: BP 132/76
--- NOTE | 2017-08-12 08:30 | HPEPDOC ---
Medical History and Physical Date of Admission Aug 11, 2017 at 19:04 History and Physical PCP: Dr Linda Rhodes ATTENDING: Dr. Primitivo Logan HPI: 36yoF admitted to [facility] for unspecified depressive disorder, being medically examined today. Pt states her body hurts, she is currently having withdrawal symptoms. No vomiting this AM, she has not had breakfast yet. States prior to admission she had been using heroin IV x 3 days then stopped "cold turkey" 3 days ago. Denies any weakness, fatigue, LACEY, CP, SOB, cough, palpitations, abdominal pain, N/V/D or changes in bowel or bladder habits. PMHx: Anxiety Depression Substance use currently on Suboxone prescribed by Dr. Moreno [facility] monthly. Insomnia Tobacco use H/O kidney stones PSHX: Tonsillectomy D&C Cholecystectomy SOCHX: Resides in: [place] Marital Status: Kids: 1 Employment: Unemployed Tobacco use: denies ETOH: Denies Illicit Drugs: Heroin 15 years, using IV heroin x 3 days prior to admission. IV Drug Use: Heroin Patient states screened for HIV and hepatitis within the past 9 months, negative. Pt agrees to rescreening. Tattoos done unprofessionally: Denies FAMHX: Mother: Alive, well Father: Alive, history of substance use Siblings: Alive, well Children: Alive, well Unexpected deaths due to medical reasons: None. ROS: As noted in HPI, otherwise 11pt ROS of systems reviewed and remarkable only for LMP unknown PE: GEN: 36 yo F, appears stated age. Well-nourished, well developed. Alert and oriented x 3. Pleasant, interactive. HEENT: Normocephalic, atraumatic. Pupils are equal, round, and reactive to light. Extraocular movements are intact. No nystagmus appreciated. Sclera are nonicteric. Conjunctiva without injection. Nose midline. Nasal turbinates without bogginess. EACs both patent BL. TMs both visualized and epperson with good cone of light, no bulging or erythema. No facial asymmetry. Moist mucous membranes. Dentition fair. Pharynx pink and moist, no cobblestoning. Neck supple , trachea midline. No lymphadenopathy or thyromegaly appreciated. CHEST: Regular rate and rhythm, +S1, +S2 LUNGS: Clear to auscultation bilaterally. No wheezes, rales, or rhonchi. Breathing appears symmetric and easy. Patient is speaking in full sentences. No accessory muscle use. ABD: Round, soft, non-tender, non-distended. +Bowel sounds throughout. No rebound or guarding. No costovertebral angle tenderness. EXT: Pulses 2+ bilaterally dorsalis pedis and radial. No lower extremity edema appreciated. SKIN: [place], dry, warm. Capillary refill <2sec. Multiple injection sites noted predominantly RUE, no other rashes. NEURO: Alert and oriented x 3. Cranial nerves III-XII are intact. No focal deficits appreciated. EKG: pending A&P: 36yoF admitted to [facility] for MDD, 1. Psych. Plan per Psychiatry. EKG on file. 2. Nicotine dependence. Patch available. 3. Abnormal TSH. Recheck TSH and free T4. 4. Follow up with PCP on discharge. Dr Rhodes. 5. Substance use. Per psychiatry. 6. Hypokalemia. Recheck CMP. 7. IVDU. Pt agrees to HIV/Hepatitis screening. 8. Staff member present throughout exam, Shazia GALVEZ. Vital Signs Vital Signs Date Time Temp Pulse Resp B/P (MAP) Pulse Ox O2 Delivery O2 Flow Rate FiO2 08/12/17 07:40 99.2 67 16 132/76 (94) 08/12/17 00:40 100 Room Air Laboratory Data Labs 24H Laboratory Tests 2 08/11/17 10:29: Anion Gap 10, Glomerular Filtration Rate > 60.0, Calcium Level 9.5, Aspartate Amino Transf (AST/SGOT) 16, Alanine Aminotransferase (ALT/SGPT) 34, Alkaline Phosphatase 85, Total Bilirubin 0.5, Direct Bilirubin 0.1, Total Protein 8.4H, Albumin 4.1, Albumin/Globulin Ratio 0.95L, Thyroid Stimulating Hormone (TSH) 0.159L, Human Chorionic Gonadotropin, Qual NEGATIVE, Salicylates Level 3.2L, Acetaminophen Level < 2.0L, Ethyl Alcohol Level < 0.003 08/11/17 17:13: Urine Amphetamines Screen POSITIVEH, Urine Benzodiazepines Screen POSITIVEH, Urine Opiates Screen POSITIVEH, Urine Methadone Screen NEGATIVE, Urine Barbiturates Screen NEGATIVE, Urine Phencyclidine Screen NEGATIVE, Urine Cocaine Metabolite Screen NEGATIVE, Urine Cannabinoids Screen NEGATIVE CBC/BMP Laboratory Tests 08/11/17 10:29 Red Blood Count 5.39, Mean Corpuscular Volume 91.9, Mean Corpuscular Hemoglobin 30.7, Mean Corpuscular Hemoglobin Concent 33.4, Red Cell Distribution Width 12.8 Home Medications Scheduled Buprenorphine/Naloxone (Suboxone 8-2 mg) 1 Mis Mis, 2 MIS SL DAILY Miscellaneous Medications [Patient Comment] PATIENT STATES SHE TOOK VENLAFAXINE 200MG? 17AM, PHARMACY HAS NO RECORD OF THIS MEDICATION. DOES HAVE RECORD OF SERTRALINE 100MG BID FROM 01/27/17. UNSURE OF WHAT SHE TOOK Allergies Coded Allergies: Codeine (Verified Allergy, Intermediate, SWELLING (non-specified), 03/01/13) Cephalosporins (Verified Allergy, Mild, POSSIBLY RASH, 03/01/13) Quinolones (Verified Allergy, Mild, POSSIBLE RASH, 03/01/13) Sulfa Drugs (Verified Allergy, Mild, RASH, 03/01/13) Sulfa Drugs Cross Reactors (Verified Allergy, Mild, RASH, 03/01/13) Latex (Verified Allergy, Unknown, 03/01/13) Ondansetron (Unverified Allergy, Unknown, 01/15/17) Metoclopramide (Verified Adverse Reaction, Mild, ANXIETY, 03/01/13) Samantha Melvin Aug 12, 2017 08:30
[2017-08-12] MEDS: NICOTINE 7 MG/24 HR TRANSDERMAL TD SCH (09:00)
[2017-08-12] MEDS: METHADONE 5 MG TAB (S0109) PO SCH (09:12)
[2017-08-12 09:52] VITALS: BP 165/90
--- NOTE | 2017-08-12 11:26 | MHHPEPDOC ---
[facility] History & Physical History and Physical DATE OF ADMISSION: Aug 11, 2017 at 19:04 LEGAL STATUS AT ADMISSION: 9.39 CHIEF COMPLAINT: "I can't go through this anymore". HISTORY OF THE PRESENT ILLNESS: Patient is a 36-year-old female, who has been clean from substance abuse for 2.5 years. She has been taking Suboxone, prescribed by a doctor in [facility]. Pt had to surrendered 25 doses of her medication to the person who was giving her a ride to her appointment for Suboxone. Once she was out of medication she began using heroin again and stopped "cold turkey " 3 days ago. Her mother feared she might attempt suicide so she had the police bring Lyndsay to our ED for psych and medical evaluation. Pt was threatening suicide at the time. She has been admitted here in the past. The spring was the most recent and before this in 2012. PSYCHIATRIC REVIEW OF SYSTEMS: Affective: ill, grimacing Anxiety: high Trauma: . Psychosis: none Personally: cooperative. PAST PSYCHIATRIC HISTORY: Prior Psychiatric Disorder: Previous diagnoses of anxiety and depression Outpatient Treatment: -Current Outpatient Mental Health Services: pt receives Suboxone from Dr. Moreno in [facility]. -Patient prescribed mental health meds by her PCP Dr.Moid Rhodes.in the past Inpatient: [facility], Last admission 02/22/13 and discharged 03/01/13, opioid overdose , depression Suicidal/Self injurious: Patient denies Psychotropic Medication History: Trazodone, Zoloft, Xanax, no longer uses benzo' s with suboxone. ALLERGIES: Please see below. FAMILY PSYCHIATRIC HISTORY: Patient reports depression and anxiety in family members on both maternal and paternal sides of family SOCIAL HISTORY: Early Relations/development: needs further assessment. Sibling order: oldest, 1 brother Paternal relationships: not assessed Education: Associates degree Occupational: [employer], has not worked in many years. Legal: none Martial: Economic: parents are helping her out Supports: parents Abuse/trauma:needs further assessment. SUBSTANCE ABUSE HISTORY: extensive - drug of choice heroin. Tox screen positive for benzo's, opioids and amphetamine, area needs additional assessment when patient is feeling better. Per [employer] reference # [id number], pt is being prescribed Suboxone 8/2mg bid - a rather high dose for 2.5 years of clean time. Her dose has not been tapered down since initiation it appears. She was also prescribed lorazepam 0.5 mg - 8 tabs for [address] Brigitte Mora on 07/18/17. on 07/21/17 she received her last Suboxone script. PAST MEDICAL/SURGICAL HISTORY: PMHx: Substance use currently on Suboxone prescribed by Dr. Moreno [facility] monthly. Insomnia Tobacco use H/O kidney stones deviated septum gastritis PSHX: Tonsillectomy D&C Cholecystectomy D&C PE: GEN: 36 yo F, appears stated age. Well-nourished, well developed. Alert and oriented x 3. Pleasant, interactive. HEENT: Normocephalic, atraumatic. Pupils are equal, round, and reactive to light. Extraocular movements are intact. No nystagmus appreciated. Sclera are nonicteric. Conjunctiva without injection. Nose midline. Nasal turbinates without bogginess. EACs both patent BL. TMs both visualized and epperson with good cone of light, no bulging or erythema. No facial asymmetry. Moist mucous membranes. Dentition fair. Pharynx pink and moist, no cobblestoning. Neck supple , trachea midline. No lymphadenopathy or thyromegaly appreciated. CHEST: Regular rate and rhythm, +S1, +S2 LUNGS: Clear to auscultation bilaterally. No wheezes, rales, or rhonchi. Breathing appears symmetric and easy. Patient is speaking in full sentences. No accessory muscle use. ABD: Round, soft, non-tender, non-distended. +Bowel sounds throughout. No rebound or guarding. No costovertebral angle tenderness. EXT: Pulses 2+ bilaterally dorsalis pedis and radial. No lower extremity edema appreciated. SKIN: [place], dry, warm. Capillary refill <2sec. Multiple injection sites noted predominantly RUE, no other rashes. NEURO: Alert and oriented x 3. Cranial nerves III-XII are intact. No focal deficits appreciated. EKG: pending A&P: 36yoF admitted to [facility] for MDD, 1. Psych. Plan per Psychiatry. EKG on file. 2. Nicotine dependence. Patch available. 3. Abnormal TSH. Recheck TSH and free T4. 4. Follow up with PCP on discharge. Dr Rhodes. 5. Substance use. Per psychiatry. 6. Hypokalemia. Recheck CMP. 7. IVDU. Pt agrees to HIV/Hepatitis screening. VITAL SIGNS: Temperature 99.2, pulse 67, respiratory rate 16, blood pressure 132 /76, pulse oximetry 100% on room air. MENTAL STATUS EXAMINATION: General appearance: Patient is a 36-year old female, who is dressed in hospital gown, in bed with emesis basin, had band aids from blood draws and IV's on hand and arm, poor eye contact. Speech: spontaneous, labored Thought processes: linear Thought content: appropriate Abstract reasoning and computation: not assessed Description of associations: requires further assessment Description of abnormal or psychotic thoughts: denies psychotic symptoms. needs further assessment when pt more stable. Judgment: poor Insight: good. Orientation: well oriented. Recent and remote memory: appears intact. Attention span and concentration: poor Fund of knowledge: full Mood: depressed Affect: pt is reporting pain due to withdrawal from substances. DIAGNOSES: 1. Poly substance abuse disorder 2. substance induced mood disorder 3. r/o anxiety disorder ASSESSMENT: pt has been in bed all day and is not in a condition to fully participate in history. We have contacted Dr. Jimenez office to see about the likelihood of her getting her Suboxone from him. Pt feels she also needs therapy and/or substance abuse treatment. Pt's information will be sent to Dr. Mcdonald's office for consideration on as to whether or not they find her appropriate to their program. Lyndsay states she has never been kicked out of a substance abuse program. She has transportation to appointments. She is compliant with Suboxone. In the past she would seek benzo's with her Suboxone and it appears from her tox screen she did so again when she relapsed. Pt knows she should not take benzo's with Suboxone but was likely taking them with opioids and amphetamines. Pt would [facility] to return to [facility] outpatient for addictions treatment. Will order Methadone stat due to pts level of discomfort. Explained to her that since I have to wait 2 days to find out if she is admitted I will prescribe the methadone for now and once we have an answer as to where she can get Suboxone as an outpatient I will begin Suboxone induction here in the hospital. She is aware she has to be in significant withdrawal for induction to be successful. PROBLEM LIST: 1. Substance abuse 2. risk for suicide 3. ineffective coping INITIAL TREATMENT PLAN: 1. Patient was admitted on a 9.39 2. Complete history was obtained. 3. With patients permission, family will be contacted and database will be expanded. 4. Patients medication regimen will be reviewed and changed accordingly. 5. Patient will be provided with protected environment. 6. Patient will be treated with individual, group, and milieu therapies. 7. Patient will receive supportive psych-education. 8. Discharge planning will commence immediately. 9. Outpatient follow-up treatment will be strongly recommended. 10. The initial treatment plan will focus initially on: see problem list above. ESTIMATED LENGTH OF STAY: 7-10 DAYS. TIME SPENT COUNSELING AND COORDINATING INITIAL CARE: 50 minutes. Laboratory Data 24H Labs Laboratory Tests 2 08/11/17 17:13: Urine Amphetamines Screen POSITIVEH, Urine Benzodiazepines Screen POSITIVEH, Urine Opiates Screen POSITIVEH, Urine Methadone Screen NEGATIVE, Urine Barbiturates Screen NEGATIVE, Urine Phencyclidine Screen NEGATIVE, Urine Cocaine Metabolite Screen NEGATIVE, Urine Cannabinoids Screen NEGATIVE Medications Scheduled Buprenorphine/Naloxone (Suboxone 8-2 mg) 1 Mis Mis, 2 MIS SL DAILY, (Reported) Miscellaneous Medications [Patient Comment] , (Reported) PATIENT STATES SHE TOOK VENLAFAXINE 200MG? 08/11/17M, PHARMACY HAS NO RECORD OF THIS MEDICATION. DOES HAVE RECORD OF SERTRALINE 100MG BID FROM 01/27/17. UNSURE OF WHAT SHE TOOK Allergies Coded Allergies: Codeine (Verified Allergy, Intermediate, SWELLING (non-specified), 03/01/13) Cephalosporins (Verified Allergy, Mild, POSSIBLY RASH, 03/01/13) Quinolones (Verified Allergy, Mild, POSSIBLE RASH, 03/01/13) Sulfa Drugs (Verified Allergy, Mild, RASH, 03/01/13) Sulfa Drugs Cross Reactors (Verified Allergy, Mild, RASH, 03/01/13) Latex (Verified Allergy, Unknown, 03/01/13) Ondansetron (Unverified Allergy, Unknown, 01/15/17) Metoclopramide (Verified Adverse Reaction, Mild, ANXIETY, 03/01/13) America Alcazar Aug 12, 2017 11:26
[2017-08-12 12:51] LABS: MEAN CORPUSCULAR HEMOGLOBIN 30.4 pg (27.0-33.0); MEAN CORPUSCULAR HGB CONC 33.5 g/dl (32.0-36.5); MEAN CORPUSCULAR VOLUME 90.9 fl (80.0-96.0); WHITE BLOOD COUNT 8.6 K/mm3 (4.0-10.0)
[2017-08-12] MEDS ORDERED: METHADONE 10 MG TAB (S0109) PO STA (13:37)
[2017-08-12 13:46] VITALS: BP 138/76
[2017-08-12 13:46] LABS: ALBUMIN 3.6 GM/DL (3.2-5.2); ALBUMIN/GLOBULIN RATIO 1.03 (1.00-1.93); ALKALINE PHOSPHATASE 74 U/L (45-117); ALT/SGPT 32 U/L (12-78); ANION GAP 10 MEQ/L (8-16); AST/SGOT 14 U/L (15-37); BILIRUBIN,TOTAL 0.4 MG/DL (0.2-1.0); BLOOD UREA NITROGEN 6 MG/DL (7-18); CALCIUM LEVEL 9.2 MG/DL (8.5-10.1); CARBON DIOXIDE LEVEL 25 MEQ/L (21-32); CHLORIDE LEVEL 105 MEQ/L (98-107); CREATININE FOR GFR 0.73 MG/DL (0.55-1.02); GLOMERULAR FILTRATION RATE > 60.0 (>60); GLUCOSE, FASTING 104 MG/DL (70-105); POTASSIUM SERUM 3.5 MEQ/L (3.5-5.1); SODIUM LEVEL 140 MEQ/L (136-145); TOTAL PROTEIN 7.1 GM/DL (6.4-8.2)
[2017-08-12 18:00] VITALS: BP 96/58
--- NOTE | 2017-08-12 20:38 | ECGEPIP ---
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
[2017-08-12 22:05] VITALS: BP 104/63
[2017-08-13 02:17] VITALS: BP 80/50
[2017-08-13 06:39] VITALS: BP 81/51
[2017-08-13] MEDS: LORazepam 0.5 MG TAB PO PRN ×2 (08:31→14:43)
[2017-08-13] MEDS: METHADONE 5 MG TAB (S0109) PO SCH (08:31)
[2017-08-13 08:34] LABS: THYROXINE (T4) 10.7 UG/DL (4.5-12.0)
[2017-08-13] MEDS: NICOTINE 7 MG/24 HR TRANSDERMAL TD SCH (08:54)
--- NOTE | 2017-08-13 10:39 | MHIPNPDOC ---
[facility] Progress Note Progress Note DATE OF SERVICE: 08/13/17 HISTORY: day 3 of admission for SI related to relapse with heroin. VITAL SIGNS: See below. 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 MENTAL STATUS EXAMINATION: Patient is a -year old female, who is . Speech: Is SPONTANeous, soft Language skills are good. Thought processes including: goal directed Thought content: appropriate Abstract reasoning, and computation: . Description of associations: . Description of abnormal or psychotic thoughts: denies psychotic symptoms, is not presently suicidal or homicidal. Judgment: limited Insight: fair. Orientation: oriented to person, place, reoriented to day of week and date. Recent and remote memory: intact Attention span and concentration: varies due to withdrawal process, pain is an issue. Fund of knowledge: FULL Mood:depressed. Affect: anxious. DIAGNOSIS: 1. Poly substance abuse disorder 2. substance induced mood disorder 3. r/o anxiety disorder ASSESSMENT: pt oob and showered today, wearing hospital attire. symptoms of withdrawal are lessening. She will attempt to go to group today - at least one if she can tolerate it. Pt motivated to remain clean. Has young son. Says her mother is completely worn out with her problems with drug addiction. 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 Has associates degree. Parents helping her financially and she would like to get a job. Talked about a good friend of her's who committed suicide recently. This was a precipitant to her relapse. Says the friend who took her to the city for her last appt for Suboxone is a real dirt bag and she only went with him as she had no other way to get there. She suspects he used her Suboxone for sale and it killed her to part with the meds. She admits her dose of Suboxone remains high but says she frequently only uses 1 8mg/2mg film and then 1`/2 of the second dose so she is willing to reduce her dose to 12 mg daily of Bupenorphine. MANAGEMENT PLAN: prepare and transmit paperwork for Dr. Jimenez' office to review tomorrow as we would love for her to have a local provider. Continue COWS protocol, will resume tx with Effexor which she has had in the past and knows she must dose daily and not stop abruptly.. Enc regular po intake to prevent dehydration. offer pain relief meds. TIME SPENT: 15 minutes. Vital Signs Vital Signs Date Time Temp Pulse Resp B/P (MAP) Pulse Ox O2 Delivery O2 Flow Rate FiO2 08/13/17 08:31 20 72 08/13/17 06:39 98.5 44 81/51 (61) Room Air Laboratory Data 24H Labs Laboratory Tests 2 08/12/17 12:29: Anion Gap 10, Glomerular Filtration Rate > 60.0, Blood Urea Nitrogen 6L, Creatinine 0.73, Sodium Level 140, Potassium Level 3.5, Chloride Level 105, Carbon Dioxide Level 25, Calcium Level 9.2, Aspartate Amino Transf (AST/SGOT) 14L, Alanine Aminotransferase (ALT/SGPT) 32, Alkaline Phosphatase 74, Total Bilirubin 0.4, Total Protein 7.1, Albumin 3.6, Albumin/Globulin Ratio 1.03 08/13/17 07:45: Thyroid Stimulating Hormone (TSH) 0.167L, Free Thyroxine Index 3.9, Thyroxine ( T4) 10.7, Triiodothyronine (T3) Uptake 36 CBC/BMP Laboratory Tests 08/12/17 12:29 Red Blood Count 5.10, Mean Corpuscular Volume 90.9, Mean Corpuscular Hemoglobin 30.4, Mean Corpuscular Hemoglobin Concent 33.5, Red Cell Distribution Width 13.0 , Calcium Level 9.2, Aspartate Amino Transf (AST/SGOT) 14 L, Alanine Aminotransferase (ALT/SGPT) 32, Alkaline Phosphatase 74, Total Bilirubin 0.4, Total Protein 7.1, Albumin 3.6 Current Medications Current Medications Acetaminophen (Tylenol Tab) 650 mg Q6HP PRN PO HEADACHE or DISCOMFORT Last administered on 08/12/17 01:34; Start 08/11/17 at 20:45; Stop 09/10/17 at 20: 44 Al Hydrox/Mg Hydrox/Simethicone (Mylanta) 30 ml Q4HP PRN PO HEARTBURN/ INDIGESTION; Start 08/11/17 at 20:45; Stop 09/10/17 at 20:44 Clonidine HCl (Holjheam-Fqf-7 Patch) 1 ea NOW STAT TOP Last administered on 11:03; Start 08/11/17 at 10:10; Stop 08/11/17 at 10:13; Status DC Home Med (Med Rec Complete!) ASDIRECTED XX ; Start 08/11/17 at 19:00; Stop 10/17 at 19:06; Status DC Lorazepam (Ativan) 0.5 mg Q8HP PRN PO withdrawal symptoms Last administered on 08/13/17 08:31; Start 08/12/17 at 20:45; Stop 08/18/17 at 20:44 Lorazepam (Ativan) 1 mg Q4HP PRN PO ANXIETY; Start 08/11/17 at 20:45; Stop 11/16 at 09:15; Status DC Lorazepam (Ativan) 1 mg STAT STAT PO Last administered on 08/11/17 20:40; Start 08/11/17 at 20:32; Stop 08/11/17 at 20:36; Status DC Lorazepam (Ativan) 2 mg STAT STAT PO Last administered on 08/11/17 13:28; Start 08/11/17 at 13:28; Stop 08/11/17 at 13:29; Status DC Magnesium Hydroxide (Milk Of Magnesia) 30 ml DAILYPRN PRN PO CONSTIPATION; Start 08/11/17 at 20:45; Stop 09/10/17 at 20:44 Methadone HCl (Dolophine) 5 mg DAILY PO Last administered on 08/13/17 08:31; Start 08/12/17 at 09:00; Stop 08/19/17 at 08:59 Methadone HCl (Dolophine) 5 mg STAT STAT PO Last administered on 08/11/17 20: 40; Start 08/11/17 at 20:32; Stop 08/11/17 at 20:35; Status DC Methadone HCl (Dolophine) 10 mg STAT STAT PO Last administered on 08/12/17 13 :46; Start 08/12/17 at 13:37; Stop 08/12/17 at 13:39; Status DC Nicotine (Nicoderm Cq 7 Mg) 1 patch DAILY TD ; Start 08/12/17 at 09:00; Stop at 08:59 Trazodone HCl (Desyrel) 50 mg QHSP PRN PO INSOMNIA Last administered on 01:34; Start 08/11/17 at 20:45; Stop 09/10/17 at 20:44 Allergies Coded Allergies: Codeine (Verified Allergy, Intermediate, SWELLING (non-specified), 03/01/13) Cephalosporins (Verified Allergy, Mild, POSSIBLY RASH, 03/01/13) Quinolones (Verified Allergy, Mild, POSSIBLE RASH, 03/01/13) Sulfa Drugs (Verified Allergy, Mild, RASH, 03/01/13) Sulfa Drugs Cross Reactors (Verified Allergy, Mild, RASH, 03/01/13) Latex (Verified Allergy, Unknown, 03/01/13) Ondansetron (Unverified Allergy, Unknown, 01/15/17) Metoclopramide (Verified Adverse Reaction, Mild, ANXIETY, 03/01/13) America Alcazar Aug 13, 2017 10:39
[2017-08-13 11:30] VITALS: BP 109/68
[2017-08-13] MEDS: VENLAFAXINE **XR** 75MG CAPSULE PO SCH ×2 (14:43→20:50)
[2017-08-13 18:00] VITALS: BP 106/64
[2017-08-14 02:00] VITALS: BP 83/47
[2017-08-14 06:33] VITALS: BP 91/44
[2017-08-14] MEDS: NICOTINE 7 MG/24 HR TRANSDERMAL TD SCH (09:00)
[2017-08-14] MEDS ORDERED: VENLAFAXINE **XR** 75MG CAPSULE PO SCH (09:00)
[2017-08-14] MEDS: METHADONE 5 MG TAB (S0109) PO SCH (10:43)
--- NOTE | 2017-08-14 12:09 | MHIPNPDOC ---
[facility] Progress Note Progress Note DATE OF SERVICE: 08/14/17 HISTORY: day 4 of admission for substance abuse with SI VITAL SIGNS: See below. NEW TEST RESULTS: - hepatitis CURRENT MEDICATIONS: See below. MENTAL STATUS EXAMINATION: General appearance: Patient is a 36-year old female, who is dressed in hospital gown, in bed with emesis basin, had band aids from blood draws and IV's on hand and arm, poor eye contact. Speech: spontaneous, whispers Thought processes: linear Thought content: appropriate Abstract reasoning and computation: good Description of associations: good Description of abnormal or psychotic thoughts: denies psychotic symptoms. no psychotic symptoms illicited. Judgment: poor Insight: good. Orientation: well oriented. Recent and remote memory:grossly intact Attention span and concentration: poor due to discomfort Fund of knowledge: full Mood: depressed and anxious Affect: distraught. DIAGNOSES: 1. Poly substance abuse disorder 2. substance induced mood disorder 3. r/o anxiety disorder 4. Depressive disorder unspecified. ASSESSMENT:pt c/o nausea. Zofran does not help her. pt up for hydration needs, appropriately attired in hospital clothes. still dealing with withdrawal symptoms and too ill to spend time in the milieu. We are awaiting a decision by Dr. Jimenez which hopefully we will have tomorrow. Supportive measures used to help pt during this difficult time. MANAGEMENT PLAN: ordered stat, one time only dose of Ativan for nausea. Hepatitis and HIV testing all negative. Pt states she is supposed to be taking Zoloft not Effexor. Will change prescription. TIME SPENT: 15 minutes. Vital Signs Vital Signs Date Time Temp Pulse Resp B/P (MAP) Pulse Ox O2 Delivery O2 Flow Rate FiO2 08/14/17 10:43 59 16 101/59 Room Air 08/14/17 06:33 98.2 08/14/17 02:00 98 Current Medications Current Medications Acetaminophen (Tylenol Tab) 650 mg Q6HP PRN PO HEADACHE or DISCOMFORT Last administered on 08/12/17t 01:34; Start 08/11/17 at 20:45; Stop 09/10/17 at 20: 44 Al Hydrox/Mg Hydrox/Simethicone (Mylanta) 30 ml Q4HP PRN PO HEARTBURN/ INDIGESTION; Start 08/11/17 at 20:45; Stop 09/10/17 at 20:44 Clonidine HCl (Lkzzubyk-Uew-0 Patch) 1 ea NOW STAT TOP Last administered on 11:03; Start 08/11/17 at 10:10; Stop 08/11/17 at 10:13; Status DC Home Med (Med Rec Complete!) ASDIRECTED XX ; Start 08/11/17 at 19:00; Stop 10/17 at 19:06; Status DC Lorazepam (Ativan) 0.5 mg Q8HP PRN PO withdrawal symptoms Last administered on 08/13/17 14:43; Start 08/12/17 at 20:45; Stop 08/18/17 at 20:44 Lorazepam (Ativan) 1 mg Q4HP PRN PO ANXIETY; Start 08/11/17 at 20:45; Stop 11/16 at 09:15; Status DC Lorazepam (Ativan) 1 mg STAT STAT PO Last administered on 08/11/17 20:40; Start 08/11/17 at 20:32; Stop 08/11/17 at 20:36; Status DC Lorazepam (Ativan) 2 mg STAT STAT PO Last administered on 08/11/17 13:28; Start 08/11/17 at 13:28; Stop 08/11/17 at 13:29; Status DC Magnesium Hydroxide (Milk Of Magnesia) 30 ml DAILYPRN PRN PO CONSTIPATION; Start 08/11/17 at 20:45; Stop 09/10/17 at 20:44 Methadone HCl (Dolophine) 5 mg DAILY PO Last administered on 08/14/17 10:43; Start 08/12/17 at 09:00; Stop 08/19/17 at 08:59 Methadone HCl (Dolophine) 5 mg STAT STAT PO Last administered on 08/11/17 20: 40; Start 08/11/17 at 20:32; Stop 08/11/17 at 20:35; Status DC Methadone HCl (Dolophine) 10 mg STAT STAT PO Last administered on 08/12/17 13 :46; Start 08/12/17 at 13:37; Stop 08/12/17 at 13:39; Status DC Nicotine (Nicoderm Cq 7 Mg) 1 patch DAILY TD ; Start 08/12/17 at 09:00; Stop at 08:59 Trazodone HCl (Desyrel) 50 mg QHSP PRN PO INSOMNIA Last administered on 01:34; Start 08/11/17 at 20:45; Stop 09/10/17 at 20:44 Venlafaxine HCl (Effexor Xr) 75 mg BID PO Last administered on 08/13/17 14 :43; Start 08/13/17 at 09:00; Stop 08/14/17 at 08:18; Status DC Venlafaxine HCl (Effexor Xr) 75 mg QAM PO ; Start 08/14/17 at 09:00; Stop 09/12/17 at 08:59 Allergies Coded Allergies: Codeine (Verified Allergy, Intermediate, SWELLING (non-specified), 03/01/13) Cephalosporins (Verified Allergy, Mild, POSSIBLY RASH, 03/01/13) Quinolones (Verified Allergy, Mild, POSSIBLE RASH, 03/01/13) Sulfa Drugs (Verified Allergy, Mild, RASH, 03/01/13) Sulfa Drugs Cross Reactors (Verified Allergy, Mild, RASH, 03/01/13) Latex (Verified Allergy, Unknown, 03/01/13) Ondansetron (Unverified Allergy, Unknown, 01/15/17) Metoclopramide (Verified Adverse Reaction, Mild, ANXIETY, 03/01/13) America Alcazar Aug 14, 2017 12:09
[2017-08-14] MEDS ORDERED: LORazepam 1 MG TAB PO STA (13:30)
[2017-08-14 18:00] VITALS: BP 100/58
[2017-08-14] MEDS: SERTRALINE 100 MG TAB PO SCH (21:00)
[2017-08-14 22:00] VITALS: BP 98/51
[2017-08-15 02:00] VITALS: BP 85/45
[2017-08-15 06:41] VITALS: BP 120/60
[2017-08-15] MEDS: NICOTINE 7 MG/24 HR TRANSDERMAL TD SCH (09:00)
[2017-08-15] MEDS: METHADONE 5 MG TAB (S0109) PO SCH (09:03)
[2017-08-15 09:30] VITALS: BP 110/55
--- NOTE | 2017-08-15 13:21 | MHIPNPDOC ---
[facility] Progress Note Progress Note DATE OF SERVICE: 08/15/17 HISTORY: day 5 of admission for depression, anxiety and polysubstance abuse. VITAL SIGNS: See below. NEW TEST RESULTS: na CURRENT MEDICATIONS: See below. MENTAL STATUS EXAMINATION: General appearance: Patient is a 36-year old female, who is dressed in hospital pj's, in bed with emesis basin, had band aids from blood draws and IV's on hand and arm, poor eye contact. Speech: spontaneous, whispers Thought processes: linear Thought content: appropriate Abstract reasoning and computation: good Description of associations: good Description of abnormal or psychotic thoughts: denies psychotic symptoms. no psychotic symptoms illicited. Judgment: poor Insight: good. Orientation: well oriented. Recent and remote memory:grossly intact Attention span and concentration: poor due to discomfort Fund of knowledge: full Mood: depressed and anxious Affect: anxious, resting comfortably at times. DIAGNOSES: 1. Poly substance abuse disorder 2. substance induced mood disorder 3. r/o anxiety disorder 4. Depressive disorder unspecified. ASSESSMENT: Local psychiatrist Dr. Jimenez has accepted Lyndsay into his practice for Suboxone treatment. She is willing to go any day of the week. They stipulate she must also be attending addiction treatment besides taking Suboxone and Lyndsay is in agreement with this. She will go to [facility] services. We are trying to get her a date at Dr. Jimenez for early next week. Pts withdrawal symptoms remain bothersome so she is till in bed most of the time. VS are stable. She is resting. MANAGEMENT PLAN: follow up with Dr. Jimenez, [facility] addictions mostly likely is walk in for first appt. Continue sertraline. Anticipate Discharge early next week, Friday. Continue safety monitoring and COWS for withdrawal safety. Will try to induce Suboxone for pat today. Case discussed with Dr. Nicholson regarding suboxone induction. Will give one more dose of Methadone on Friday and stop methadone after that dose. No methadone or anything on Friday unless she requires low dose Ativan. Will induce Suboxone Friday at 8mg/2mg. Will prescribe seroquel 12.5 mg for anxiety bid. may increase if necessary. TIME SPENT: minutes. Vital Signs Vital Signs Date Time Temp Pulse Resp B/P (MAP) Pulse Ox O2 Delivery O2 Flow Rate FiO2 08/15/17 09:30 98.8 55 16 110/55 (73) 08/15/17 02:00 100 Room Air Current Medications Current Medications Acetaminophen (Tylenol Tab) 650 mg Q6HP PRN PO HEADACHE or DISCOMFORT Last administered on 08/12/17 01:34; Start 08/11/17 at 20:45; Stop 09/10/17 at 20: 44 Al Hydrox/Mg Hydrox/Simethicone (Mylanta) 30 ml Q4HP PRN PO HEARTBURN/ INDIGESTION; Start 08/11/17 at 20:45; Stop 09/10/17 at 20:44 Clonidine HCl (Tqrjvusf-Clj-9 Patch) 1 ea NOW STAT TOP Last administered on 11:03; Start 08/11/17 at 10:10; Stop 08/11/17 at 10:13; Status DC Home Med (Med Rec Complete!) ASDIRECTED XX ; Start 08/11/17 at 19:00; Stop 10/17 at 19:06; Status DC Lorazepam (Ativan) 0.5 mg Q8HP PRN PO withdrawal symptoms Last administered on 08/13/17 14:43; Start 08/12/17 at 20:45; Stop 08/18/17 at 20:44 Lorazepam (Ativan) 1 mg Q4HP PRN PO ANXIETY; Start 08/11/17 at 20:45; Stop 11/16 at 09:15; Status DC Lorazepam (Ativan) 1 mg STAT STAT PO Last administered on 08/11/17 20:40; Start 08/11/17 at 20:32; Stop 08/11/17 at 20:36; Status DC Lorazepam (Ativan) 1 mg STAT STAT PO Last administered on 08/14/17 14:24; Start 08/14/17 at 13:30; Stop 08/14/17 at 13:33; Status DC Lorazepam (Ativan) 2 mg STAT STAT PO Last administered on 08/11/17 13:28; Start 08/11/17 at 13:28; Stop 08/11/17 at 13:29; Status DC Magnesium Hydroxide (Milk Of Magnesia) 30 ml DAILYPRN PRN PO CONSTIPATION; Start 08/11/17 at 20:45; Stop 09/10/17 at 20:44 Methadone HCl (Dolophine) 5 mg DAILY PO Last administered on 08/15/17 09:03; Start 08/12/17 at 09:00; Stop 08/19/17 at 08:59 Methadone HCl (Dolophine) 5 mg STAT STAT PO Last administered on 08/11/17 20: 40; Start 08/11/17 at 20:32; Stop 08/11/17 at 20:35; Status DC Methadone HCl (Dolophine) 10 mg STAT STAT PO Last administered on 08/12/17 13 :46; Start 08/12/17 at 13:37; Stop 08/12/17 at 13:39; Status DC Nicotine (Nicoderm Cq 7 Mg) 1 patch DAILY TD ; Start 08/12/17 at 09:00; Stop at 08:59 Sertraline HCl (Zoloft) 200 mg QHS PO ; Start 08/14/17 at 21:00; Stop 09/13/17 at 20:59 Trazodone HCl (Desyrel) 50 mg QHSP PRN PO INSOMNIA Last administered on 01:34; Start 08/11/17 at 20:45; Stop 09/10/17 at 20:44 Venlafaxine HCl (Effexor Xr) 75 mg BID PO Last administered on 08/13/17 14 :43; Start 08/13/17 at 09:00; Stop 08/14/17 at 08:18; Status DC Venlafaxine HCl (Effexor Xr) 75 mg QAM PO ; Start 08/14/17 at 09:00; Stop at 12:08; Status DC Allergies Coded Allergies: Codeine (Verified Allergy, Intermediate, SWELLING (non-specified), 03/01/13) Cephalosporins (Verified Allergy, Mild, POSSIBLY RASH, 03/01/13) Quinolones (Verified Allergy, Mild, POSSIBLE RASH, 03/01/13) Sulfa Drugs (Verified Allergy, Mild, RASH, 03/01/13) Sulfa Drugs Cross Reactors (Verified Allergy, Mild, RASH, 03/01/13) Latex (Verified Allergy, Unknown, 03/01/13) Ondansetron (Unverified Allergy, Unknown, 01/15/17) Metoclopramide (Verified Adverse Reaction, Mild, ANXIETY, 03/01/13) America Alcazar Aug 15, 2017 13:21
[2017-08-15 13:25] VITALS: BP 93/50
[2017-08-15 18:00] VITALS: BP 90/50
[2017-08-15 19:03] VITALS: BP 104/56
[2017-08-15] MEDS: SERTRALINE 100 MG TAB PO SCH (21:00)
[2017-08-15] MEDS: traZODone 50 MG TAB PO PRN (21:38)
[2017-08-15] MEDS: QUEtiapine FUMARATE 12.5 MG HALF-TAB PO SCH (21:38)
[2017-08-16 06:52] VITALS: BP 97/50
[2017-08-16] MEDS ORDERED: METHADONE 5 MG TAB (S0109) PO SCH (09:00)
[2017-08-16] MEDS: QUEtiapine FUMARATE 12.5 MG HALF-TAB PO SCH ×2 (09:00→21:07)
[2017-08-16] MEDS: NICOTINE 7 MG/24 HR TRANSDERMAL TD SCH (09:00)
[2017-08-16] MEDS: SERTRALINE 100 MG TAB PO SCH (11:25)
[2017-08-16 18:00] VITALS: BP 90/51
[2017-08-16] MEDS: traZODone 50 MG TAB PO PRN (21:07)
[2017-08-16] MEDS: ACETAMINOPHEN TAB 650MG DOSE (2X325MG) PO PRN (21:08)
[2017-08-16] MEDS: LORazepam 0.5 MG TAB PO PRN (22:15)
[2017-08-16] MEDS: QUEtiapine FUMARATE 12.5 MG HALF-TAB PO PRN (22:15)
[2017-08-17 07:00] VITALS: BP 103/56
[2017-08-17] MEDS: NICOTINE 7 MG/24 HR TRANSDERMAL TD SCH (08:48)
[2017-08-17] MEDS: QUEtiapine FUMARATE 12.5 MG HALF-TAB PO SCH ×2 (09:00→21:30)
[2017-08-17] MEDS: SERTRALINE 100 MG TAB PO SCH (09:00)
[2017-08-17 10:05] VITALS: BP 107/55
[2017-08-17] MEDS: QUEtiapine FUMARATE 12.5 MG HALF-TAB PO PRN (16:35)
[2017-08-17 18:00] VITALS: BP 118/59
[2017-08-17] MEDS: LORazepam 0.5 MG TAB PO PRN (21:30)
[2017-08-17] MEDS: traZODone 50 MG TAB PO PRN (21:30)
[2017-08-17] MEDS: ACETAMINOPHEN TAB 650MG DOSE (2X325MG) PO PRN (21:46)
[2017-08-17 22:00] VITALS: BP 102/54
[2017-08-18 02:13] VITALS: BP 97/50
[2017-08-18 06:00] VITALS: BP 108/62
[2017-08-18] MEDS: NICOTINE 7 MG/24 HR TRANSDERMAL TD SCH (09:00)
[2017-08-18] MEDS: SERTRALINE 100 MG TAB PO SCH (09:09)
[2017-08-18] MEDS: QUEtiapine FUMARATE 12.5 MG HALF-TAB PO SCH ×2 (09:09→20:44)
[2017-08-18] MEDS: BUPRENORPHINE/NALOXONE 8-2MG SUBLINGUAL TABLET(SUBOXONE) SL SCH (09:28)
--- NOTE | 2017-08-18 10:13 | MHIPNPDOC ---
[facility] Progress Note Progress Note DATE OF SERVICE: 08/18/17 HISTORY: day 8 of admission for SI related to relapse into substance use. VITAL SIGNS: See below. NEW TEST RESULTS: NA CURRENT MEDICATIONS: See below. MENTAL STATUS EXAMINATION: General appearance: Patient is a 36-year old female, who is dressed in hospital pj's, out in hallway periodically for meds, hydration. Good eye contact. Speech: spontaneous, whispers Thought processes: linear Thought content: appropriate Abstract reasoning and computation: good Description of associations: good Description of abnormal or psychotic thoughts: denies psychotic symptoms. no psychotic symptoms illicited. Judgment: poor Insight: good. Orientation: well oriented. Recent and remote memory:grossly intact Attention span and concentration: poor due to discomfort Fund of knowledge: full Mood: depressed and anxious Affect: anxious, resting comfortably at times. DIAGNOSES: 1. Poly substance abuse disorder 2. substance induced mood disorder 3. r/o anxiety disorder 4. Depressive disorder unspecified. ASSESSMENT: Pt was started on Suboxone this a.m. following COWS assessment and pts own request indicating she felt the onset of Withdrawal yesterday when methadone was held. Will provide 8mg/2mg now and 4mg/0.5mg in p.m. Pt reports ongoing anxiety and stomach upset. Is tearful but cooperative. Will reassess later today for relief. Pt reports feeling much better once Suboxone induced. About an hour after first dose she received atarax for itching. Prn order in place for her to use as needed. Pt improving and in much better spirits. MANAGEMENT PLAN: will continue Suboxone until Discharge when she can get in to Dr. Jimenez office. The office is closed today. Will see if tomorrow we can get her an appt. TIME SPENT: 25 minutes. Vital Signs Vital Signs Date Time Temp Pulse Resp B/P (MAP) Pulse Ox O2 Delivery O2 Flow Rate FiO2 08/18/17 06:00 98.1 57 18 108/62 (77) 08/18/17 02:13 100 Room Air Current Medications Current Medications Acetaminophen (Tylenol Tab) 650 mg Q6HP PRN PO HEADACHE or DISCOMFORT Last administered on 08/17/17t 21:46; Start 08/11/17 at 20:45; Stop 09/10/17 at 20: 44 Al Hydrox/Mg Hydrox/Simethicone (Mylanta) 30 ml Q4HP PRN PO HEARTBURN/ INDIGESTION; Start 08/11/17 at 20:45; Stop 09/10/17 at 20:44 Buprenorphine/ Naloxone (Suboxone 2/ 0.5mg) 2 tab DAILY@1600 SL ; Start at 16:00; Stop 08/25/17 at 15:59 Buprenorphine/ Naloxone (Suboxone 8/2mg) 1 tab DAILY SL Last administered on 09:28; Start 08/18/17 at 09:00; Stop 08/25/17 at 08:59 Clonidine HCl (Vyyhsxih-Jvr-6 Patch) 1 ea NOW STAT TOP Last administered on 11:03; Start 08/11/17 at 10:10; Stop 08/11/17 at 10:13; Status DC Home Med (Med Rec Complete!) ASDIRECTED XX ; Start 08/11/17 at 19:00; Stop 10/17 at 19:06; Status DC Lorazepam (Ativan) 0.5 mg Q8HP PRN PO withdrawal symptoms Last administered on 08/17/17 21:30; Start 08/12/17 at 20:45; Stop 08/18/17 at 20:44 Lorazepam (Ativan) 1 mg Q4HP PRN PO ANXIETY; Start 08/11/17 at 20:45; Stop 11/16 at 09:15; Status DC Lorazepam (Ativan) 1 mg STAT STAT PO Last administered on 08/11/17 20:40; Start 08/11/17 at 20:32; Stop 08/11/17 at 20:36; Status DC Lorazepam (Ativan) 1 mg STAT STAT PO Last administered on 08/14/17 14:24; Start 08/14/17 at 13:30; Stop 08/14/17 at 13:33; Status DC Lorazepam (Ativan) 2 mg STAT STAT PO Last administered on 08/11/17 13:28; Start 08/11/17 at 13:28; Stop 08/11/17 at 13:29; Status DC Magnesium Hydroxide (Milk Of Magnesia) 30 ml DAILYPRN PRN PO CONSTIPATION; Start 08/11/17 at 20:45; Stop 09/10/17 at 20:44 Methadone HCl (Dolophine) 5 mg DAILY PO Last administered on 08/15/17 09:03; Start 08/12/17 at 09:00; Stop 08/15/17 at 14:21; Status DC Methadone HCl (Dolophine) 5 mg STAT STAT PO Last administered on 08/11/17 20: 40; Start 08/11/17 at 20:32; Stop 08/11/17 at 20:35; Status DC Methadone HCl (Dolophine) 5 mg TID PO Last administered on 08/16/17 09:09; Start 08/16/17 at 09:00; Stop 08/16/17 at 10:00; Status DC Methadone HCl (Dolophine) 10 mg STAT STAT PO Last administered on 08/12/17 13 :46; Start 08/12/17 at 13:37; Stop 08/12/17 at 13:39; Status DC Nicotine (Nicoderm Cq 7 Mg) 1 patch DAILY TD ; Start 08/12/17 at 09:00; Stop at 08:59 Quetiapine Fumarate (SEROquel) 12.5 mg BID PO Last administered on 08/18/17 09 :09; Start 08/15/17 at 21:00; Stop 09/14/17 at 20:59 Quetiapine Fumarate (SEROquel) 12.5 mg Q8HP PRN PO ANXIETY Last administered on 08/17/17 16:35; Start 08/15/17 at 15:00; Stop 09/14/17 at 14:59 Sertraline HCl (Zoloft) 200 mg DAILY PO Last administered on 08/18/17 09:09; Start 08/16/17 at 09:00; Stop 09/13/17 at 08:59 Sertraline HCl (Zoloft) 200 mg QHS PO ; Start 08/14/17 at 21:00; Stop 08/16/17 at 11:13; Status DC Trazodone HCl (Desyrel) 50 mg QHSP PRN PO INSOMNIA Last administered on 21:30; Start 08/11/17 at 20:45; Stop 09/10/17 at 20:44 Venlafaxine HCl (Effexor Xr) 75 mg BID PO Last administered on 08/13/17 14 :43; Start 08/13/17 at 09:00; Stop 08/14/17 at 08:18; Status DC Venlafaxine HCl (Effexor Xr) 75 mg QAM PO ; Start 08/14/17 at 09:00; Stop at 12:08; Status DC Allergies Coded Allergies: Codeine (Verified Allergy, Intermediate, SWELLING (non-specified), 03/01/13) Cephalosporins (Verified Allergy, Mild, POSSIBLY RASH, 03/01/13) Quinolones (Verified Allergy, Mild, POSSIBLE RASH, 03/01/13) Sulfa Drugs (Verified Allergy, Mild, RASH, 03/01/13) Sulfa Drugs Cross Reactors (Verified Allergy, Mild, RASH, 03/01/13) Latex (Verified Allergy, Unknown, 03/01/13) Ondansetron (Unverified Allergy, Unknown, 01/15/17) Metoclopramide (Verified Adverse Reaction, Mild, ANXIETY, 03/01/13) America Alcazar Aug 18, 2017 10:13
[2017-08-18] MEDS: hydrOXYzine 50 MG TAB PO PRN ×2 (13:30→20:52)
[2017-08-18] MEDS: BUPRENORPHINE/NALOXONE 2-0.5MG SUBLINGUAL TABLET(SUBOXONE) SL SCH (16:09)
[2017-08-18 18:00] VITALS: BP 102/52
[2017-08-18] MEDS: traZODone 50 MG TAB PO PRN (20:44)
[2017-08-19 02:00] VITALS: BP 131/61
[2017-08-19 06:00] VITALS: BP 98/47
[2017-08-19] MEDS: QUEtiapine FUMARATE 12.5 MG HALF-TAB PO SCH ×2 (08:10→21:23)
[2017-08-19] MEDS: BUPRENORPHINE/NALOXONE 8-2MG SUBLINGUAL TABLET(SUBOXONE) SL SCH (08:10)
[2017-08-19] MEDS: SERTRALINE 100 MG TAB PO SCH (08:10)
[2017-08-19] MEDS: NICOTINE 7 MG/24 HR TRANSDERMAL TD SCH (08:11)
[2017-08-19] MEDS ORDERED: traZODone 50 MG TAB PO PRN (08:30)
[2017-08-19] MEDS: cloNIDine 0.1 MG TAB PO SCH ×3 (09:50→21:23)
[2017-08-19 12:00] VITALS: BP 125/74
--- NOTE | 2017-08-19 15:52 | MHIPNPDOC ---
[facility] Progress Note Progress Note DATE OF SERVICE: 08/19/17 HISTORY: day 9 of admission for SI related to relapse with opioid. VITAL SIGNS: See below. NEW TEST RESULTS: na CURRENT MEDICATIONS: See below. MENTAL STATUS EXAMINATION: General appearance: Patient is a 36-year old female, who is dressed in hospital pj's, out in hallway periodically for meds, hydration. Good eye contact. Speech: spontaneous, whispers Thought processes: linear Thought content: appropriate Abstract reasoning and computation: good Description of associations: good Description of abnormal or psychotic thoughts: denies psychotic symptoms. no psychotic symptoms illicited. Judgment: poor Insight: good. Orientation: well oriented. Recent and remote memory:grossly intact Attention span and concentration: poor due to discomfort Fund of knowledge: full Mood: depressed and anxious Affect: anxious, resting comfortably at times. DIAGNOSES: 1. Poly substance abuse disorder 2. substance induced mood disorder 3. r/o anxiety disorder 4. Depressive disorder unspecified. ASSESSMENT:pt much improved since start of Suboxone yesterday, observed in hallway going to and fro. Appetite has returned. Observed smiling and talking with roommate. Mostly keeps to self. No SI and is future oriented. She is hopeful about the future and wants to do Suboxone right this time. She would abuse other substances while using Suboxone in the past. She knows she must do better and believes she can. Support and encouragement provided. Restless night for her. Staff reports she slept well but she diego snot feel like she did. MANAGEMENT PLAN: increase trazodone to 100 mg at hs. continue Suboxone bid. We have an ppt with Dr. Jimenez on at 10:30. She will be discharged that morning via cab to his office. Walk in at [facility] addiction to set up substance abuse counseling. Will also need med mgt unless Dr. Jimenez will prescribe her psych meds. TIME SPENT: 15 minutes. Vital Signs Vital Signs Date Time Temp Pulse Resp B/P (MAP) Pulse Ox O2 Delivery O2 Flow Rate FiO2 08/19/17 12:00 97.9 86 18 125/74 (91) 08/18/17 02:13 100 Room Air Current Medications Current Medications Acetaminophen (Tylenol Tab) 650 mg Q6HP PRN PO HEADACHE or DISCOMFORT Last administered on 08/17/17t 21:46; Start 08/11/17 at 20:45; Stop 09/10/17 at 20: 44 Al Hydrox/Mg Hydrox/Simethicone (Mylanta) 30 ml Q4HP PRN PO HEARTBURN/ INDIGESTION; Start 08/11/17 at 20:45; Stop 09/10/17 at 20:44 Buprenorphine/ Naloxone (Suboxone 2/ 0.5mg) 2 tab DAILY@1600 SL Last administered on 08/18/17 16:09; Start 08/18/17 at 16:00; Stop 08/25/17 at 15:59 Buprenorphine/ Naloxone (Suboxone 8/2mg) 1 tab DAILY SL Last administered on 08:10; Start 08/18/17 at 09:00; Stop 08/25/17 at 08:59 Clonidine HCl (Catapres) 0.1 mg TID PO Last administered on 08/19/17 09:50; Start 08/19/17 at 09:00; Stop 09/18/17 at 08:59 Clonidine HCl (Jnhmocyk-Ayv-9 Patch) 1 ea NOW STAT TOP Last administered on 11:03; Start 08/11/17 at 10:10; Stop 08/11/17 at 10:13; Status DC Home Med (Med Rec Complete!) ASDIRECTED XX ; Start 08/11/17 at 19:00; Stop 10/17 at 19:06; Status DC Hydroxyzine HCl (Atarax) 50 mg Q4HP PRN PO ITCHING Last administered on 20:52; Start 08/18/17 at 13:00; Stop 09/17/17 at 12:59 Lorazepam (Ativan) 0.5 mg Q8HP PRN PO withdrawal symptoms Last administered on 08/17/17 21:30; Start 08/12/17 at 20:45; Stop 08/18/17 at 20:44; Status DC Lorazepam (Ativan) 1 mg Q4HP PRN PO ANXIETY; Start 08/11/17 at 20:45; Stop 11/16 at 09:15; Status DC Lorazepam (Ativan) 1 mg STAT STAT PO Last administered on 08/11/17 20:40; Start 08/11/17 at 20:32; Stop 08/11/17 at 20:36; Status DC Lorazepam (Ativan) 1 mg STAT STAT PO Last administered on 08/14/17 14:24; Start 08/14/17 at 13:30; Stop 08/14/17 at 13:33; Status DC Lorazepam (Ativan) 2 mg STAT STAT PO Last administered on 08/11/17 13:28; Start 08/11/17 at 13:28; Stop 08/11/17 at 13:29; Status DC Magnesium Hydroxide (Milk Of Magnesia) 30 ml DAILYPRN PRN PO CONSTIPATION; Start 08/11/17 at 20:45; Stop 09/10/17 at 20:44 Methadone HCl (Dolophine) 5 mg DAILY PO Last administered on 08/15/17 09:03; Start 08/12/17 at 09:00; Stop 08/15/17 at 14:21; Status DC Methadone HCl (Dolophine) 5 mg STAT STAT PO Last administered on 08/11/17 20: 40; Start 08/11/17 at 20:32; Stop 08/11/17 at 20:35; Status DC Methadone HCl (Dolophine) 5 mg TID PO Last administered on 08/16/17 09:09; Start 08/16/17 at 09:00; Stop 08/16/17 at 10:00; Status DC Methadone HCl (Dolophine) 10 mg STAT STAT PO Last administered on 08/12/17 13 :46; Start 08/12/17 at 13:37; Stop 08/12/17 at 13:39; Status DC Nicotine (Nicoderm Cq 7 Mg) 1 patch DAILY TD ; Start 08/12/17 at 09:00; Stop at 08:59 Quetiapine Fumarate (SEROquel) 12.5 mg BID PO Last administered on 08/19/17 08 :10; Start 08/15/17 at 21:00; Stop 09/14/17 at 20:59 Quetiapine Fumarate (SEROquel) 12.5 mg Q8HP PRN PO ANXIETY Last administered on 08/17/17 16:35; Start 08/15/17 at 15:00; Stop 09/14/17 at 14:59 Sertraline HCl (Zoloft) 200 mg DAILY PO Last administered on 08/19/17 08:10; Start 08/16/17 at 09:00; Stop 09/13/17 at 08:59 Sertraline HCl (Zoloft) 200 mg QHS PO ; Start 08/14/17 at 21:00; Stop 08/16/17 at 11:13; Status DC Trazodone HCl (Desyrel) 50 mg QHSP PRN PO INSOMNIA Last administered on 20:44; Start 08/11/17 at 20:45; Stop 08/19/17 at 08:20; Status DC Trazodone HCl (Desyrel) 100 mg QHSP PRN PO INSOMNIA; Start 08/19/17 at 08:30; Stop 09/18/17 at 08:29 Venlafaxine HCl (Effexor Xr) 75 mg BID PO Last administered on 08/13/17 14 :43; Start 08/13/17 at 09:00; Stop 08/14/17 at 08:18; Status DC Venlafaxine HCl (Effexor Xr) 75 mg QAM PO ; Start 08/14/17 at 09:00; Stop at 12:08; Status DC Allergies Coded Allergies: Codeine (Verified Allergy, Intermediate, SWELLING (non-specified), 03/01/13) Cephalosporins (Verified Allergy, Mild, POSSIBLY RASH, 03/01/13) Quinolones (Verified Allergy, Mild, POSSIBLE RASH, 03/01/13) Sulfa Drugs (Verified Allergy, Mild, RASH, 03/01/13) Sulfa Drugs Cross Reactors (Verified Allergy, Mild, RASH, 03/01/13) Latex (Verified Allergy, Unknown, 03/01/13) Ondansetron (Unverified Allergy, Unknown, 01/15/17) Metoclopramide (Verified Adverse Reaction, Mild, ANXIETY, 03/01/13) America Alcazar Aug 19, 2017 15:52
[2017-08-19] MEDS: BUPRENORPHINE/NALOXONE 2-0.5MG SUBLINGUAL TABLET(SUBOXONE) SL SCH (16:18)
[2017-08-19 18:00] VITALS: BP 120/80
[2017-08-20 06:54] VITALS: BP 92/58
--- NOTE | 2017-08-20 08:31 | MHIPNPDOC ---
[facility] Progress Note Progress Note DATE OF SERVICE: 08/20/17 HISTORY: day10 of admission for SI related to relapse with heroin. VITAL SIGNS: See below. NEW TEST RESULTS: na CURRENT MEDICATIONS: See below. MENTAL STATUS EXAMINATION: General appearance: Patient is a 36-year old female, who is dressed in hospital pj's, out in hallway periodically for meds, hydration. Good eye contact. Speech: spontaneous, whispers Thought processes: linear Thought content: appropriate Abstract reasoning and computation: good Description of associations: good Description of abnormal or psychotic thoughts: denies psychotic symptoms. no psychotic symptoms illicited. Judgment: poor Insight: good. Orientation: well oriented. Recent and remote memory:grossly intact Attention span and concentration: poor due to discomfort Fund of knowledge: full Mood: depressed and anxious Affect: anxious, resting comfortably at times. DIAGNOSES: 1. Poly substance abuse disorder 2. substance induced mood disorder 3. r/o anxiety disorder 4. Depressive disorder unspecified. ASSESSMENT:pt is gradually improving from her withdrawal experience. Holding food down and showing much more personality and affect. Pt is thinking clearly and is positive about her future. her sleep is improved and anxiety is tolerable. We discussed the fact that if she abuses street drugs she will be discharged from Dr. Jimenez' service. Also it could be deadly to her taking benzo' s with an opioid agonist. She understands. She is hopeful she will meet some healthy people through her groups and treatment at [facility] addictions. She will also attend med mgt at [facility]. There are many medications that can be provided to her that are safe and nonaddicting and she is enc to talk with her outpatient provider about those options as needed. Forming Process Worker received a call from Pts mother who was very critical of the care pt has received here. She insists that Lyndsay needs inpatient treatment and says she has never had any. This is not true as pt was treated at [facility] in the past. Explained to mother that inpatient beds are scarce and if she had shared this with fiction and nonfiction prose writer earlier (not the day before discharge) we could have explored it further. Mother was very rude and made unkind remarks aimed at fiction and nonfiction prose writer so fiction and nonfiction prose writer eventually just thanked her for calling. She took offense and hung up. Our inventory planner had made an attempt to get in contact with mother but she has been doing training and not working as a enterprise resource planner here and there with other people filling in so communication is not very tight. Forming Process Worker has not had a personal knowledge of mother's calls or concerns. Nursing has not informed fiction and nonfiction prose writer of mother's desires. Mother indicated she will not return pts son to her. Pt is aware that mother has put him in a new school. It is unclear if mother has legal or physical custody. Pt is encouraged to use proper legal channels if mother is making up her own rules for the son. Mother also intimated that Lyndsay is on probation but this is not true. Mother says she will call the police if Lyndsay is seen spending time with the wrong people. Mom says she has been dealing with Lyndsay' s addiction problems for 21 years and feels fiction and nonfiction prose writer is not being helpful. MANAGEMENT PLAN: plan is discharge tomorrow. she will return to her own home. she will take a cab from [facility] to Dr. Mcdonald's office. she admits she has lots to do. she knows she has to associate with people who are a positive influence on her. TIME SPENT: 25 minutes. Vital Signs Vital Signs Date Time Temp Pulse Resp B/P (MAP) Pulse Ox O2 Delivery O2 Flow Rate FiO2 08/20/17 06:54 97.1 54 20 92/58 (69) 08/18/17 02:13 100 Room Air Current Medications Current Medications Acetaminophen (Tylenol Tab) 650 mg Q6HP PRN PO HEADACHE or DISCOMFORT Last administered on 08/17/17 21:46; Start 08/11/17 at 20:45; Stop 09/10/17 at 20: 44 Al Hydrox/Mg Hydrox/Simethicone (Mylanta) 30 ml Q4HP PRN PO HEARTBURN/ INDIGESTION; Start 08/11/17 at 20:45; Stop 09/10/17 at 20:44 Buprenorphine/ Naloxone (Suboxone 2/ 0.5mg) 2 tab DAILY@1600 SL Last administered on 08/19/17 16:18; Start 08/18/17 at 16:00; Stop 08/25/17 at 15:59 Buprenorphine/ Naloxone (Suboxone 8/2mg) 1 tab DAILY SL Last administered on 08:10; Start 08/18/17 at 09:00; Stop 08/25/17 at 08:59 Clonidine HCl (Catapres) 0.1 mg TID PO Last administered on 08/19/17 21:23; Start 08/19/17 at 09:00; Stop 09/18/17 at 08:59 Clonidine HCl (Oqaqybri-Gla-2 Patch) 1 ea NOW STAT TOP Last administered on 11:03; Start 08/11/17 at 10:10; Stop 08/11/17 at 10:13; Status DC Home Med (Med Rec Complete!) ASDIRECTED XX ; Start 08/11/17 at 19:00; Stop 10/17 at 19:06; Status DC Hydroxyzine HCl (Atarax) 50 mg Q4HP PRN PO ITCHING Last administered on 20:52; Start 08/18/17 at 13:00; Stop 09/17/17 at 12:59 Lorazepam (Ativan) 0.5 mg Q8HP PRN PO withdrawal symptoms Last administered on 08/17/17 21:30; Start 08/12/17 at 20:45; Stop 08/18/17 at 20:44; Status DC Lorazepam (Ativan) 1 mg Q4HP PRN PO ANXIETY; Start 08/11/17 at 20:45; Stop 11/16 at 09:15; Status DC Lorazepam (Ativan) 1 mg STAT STAT PO Last administered on 08/11/17 20:40; Start 08/11/17 at 20:32; Stop 08/11/17 at 20:36; Status DC Lorazepam (Ativan) 1 mg STAT STAT PO Last administered on 08/14/17 14:24; Start 08/14/17 at 13:30; Stop 08/14/17 at 13:33; Status DC Lorazepam (Ativan) 2 mg STAT STAT PO Last administered on 08/11/17 13:28; Start 08/11/17 at 13:28; Stop 08/11/17 at 13:29; Status DC Magnesium Hydroxide (Milk Of Magnesia) 30 ml DAILYPRN PRN PO CONSTIPATION; Start 08/11/17 at 20:45; Stop 09/10/17 at 20:44 Methadone HCl (Dolophine) 5 mg DAILY PO Last administered on 08/15/17 09:03; Start 08/12/17 at 09:00; Stop 08/15/17 at 14:21; Status DC Methadone HCl (Dolophine) 5 mg STAT STAT PO Last administered on 08/11/17 20: 40; Start 08/11/17 at 20:32; Stop 08/11/17 at 20:35; Status DC Methadone HCl (Dolophine) 5 mg TID PO Last administered on 08/16/17 09:09; Start 08/16/17 at 09:00; Stop 08/16/17 at 10:00; Status DC Methadone HCl (Dolophine) 10 mg STAT STAT PO Last administered on 08/12/17 13 :46; Start 08/12/17 at 13:37; Stop 08/12/17 at 13:39; Status DC Nicotine (Nicoderm Cq 7 Mg) 1 patch DAILY TD ; Start 08/12/17 at 09:00; Stop at 08:59 Quetiapine Fumarate (SEROquel) 12.5 mg BID PO Last administered on 08/19/17 21 :23; Start 08/15/17 at 21:00; Stop 09/14/17 at 20:59 Quetiapine Fumarate (SEROquel) 12.5 mg Q8HP PRN PO ANXIETY Last administered on 08/17/17 16:35; Start 08/15/17 at 15:00; Stop 09/14/17 at 14:59 Sertraline HCl (Zoloft) 200 mg DAILY PO Last administered on 08/19/17 08:10; Start 08/16/17 at 09:00; Stop 09/13/17 at 08:59 Sertraline HCl (Zoloft) 200 mg QHS PO ; Start 08/14/17 at 21:00; Stop 08/16/17 at 11:13; Status DC Trazodone HCl (Desyrel) 50 mg QHSP PRN PO INSOMNIA Last administered on 20:44; Start 08/11/17 at 20:45; Stop 08/19/17 at 08:20; Status DC Trazodone HCl (Desyrel) 100 mg QHSP PRN PO INSOMNIA; Start 08/19/17 at 08:30; Stop 09/18/17 at 08:29 Venlafaxine HCl (Effexor Xr) 75 mg BID PO Last administered on 08/13/17t 14 :43; Start 08/13/17 at 09:00; Stop 08/14/17 at 08:18; Status DC Venlafaxine HCl (Effexor Xr) 75 mg QAM PO ; Start 08/14/17 at 09:00; Stop at 12:08; Status DC Allergies Coded Allergies: Codeine (Verified Allergy, Intermediate, SWELLING (non-specified), 03/01/13) Cephalosporins (Verified Allergy, Mild, POSSIBLY RASH, 03/01/13) Quinolones (Verified Allergy, Mild, POSSIBLE RASH, 03/01/13) Sulfa Drugs (Verified Allergy, Mild, RASH, 03/01/13) Sulfa Drugs Cross Reactors (Verified Allergy, Mild, RASH, 03/01/13) Latex (Verified Allergy, Unknown, 03/01/13) Ondansetron (Unverified Allergy, Unknown, 01/15/17) Metoclopramide (Verified Adverse Reaction, Mild, ANXIETY, 03/01/13) America Alcazar Aug 20, 2017 08:31
[2017-08-20] MEDS: QUEtiapine FUMARATE 12.5 MG HALF-TAB PO SCH ×2 (08:37→20:33)
[2017-08-20] MEDS: SERTRALINE 100 MG TAB PO SCH (08:37)
[2017-08-20] MEDS: NICOTINE 7 MG/24 HR TRANSDERMAL TD SCH (08:37)
[2017-08-20] MEDS: cloNIDine 0.1 MG TAB PO SCH ×3 (08:37→20:33)
[2017-08-20] MEDS: BUPRENORPHINE/NALOXONE 8-2MG SUBLINGUAL TABLET(SUBOXONE) SL SCH (08:37)
[2017-08-20] MEDS: BUPRENORPHINE/NALOXONE 2-0.5MG SUBLINGUAL TABLET(SUBOXONE) SL SCH (15:54)
[2017-08-20 18:27] VITALS: BP 106/58
[2017-08-21 07:06] VITALS: BP 97/54
[2017-08-21] MEDS: NICOTINE 7 MG/24 HR TRANSDERMAL TD SCH (08:33)
[2017-08-21 08:37] VITALS: BP 124/83
[2017-08-21] MEDS: QUEtiapine FUMARATE 12.5 MG HALF-TAB PO SCH (08:37)
[2017-08-21] MEDS: BUPRENORPHINE/NALOXONE 8-2MG SUBLINGUAL TABLET(SUBOXONE) SL SCH (08:37)
[2017-08-21] MEDS: cloNIDine 0.1 MG TAB PO SCH (08:37)
[2017-08-21] MEDS: SERTRALINE 100 MG TAB PO SCH (08:37)
[2017-08-21] MEDS ORDERED: CLONI1TA PO (09:32)
[2017-08-21] MEDS ORDERED: TRAZ-136 PO (09:32)
[2017-08-21] MEDS ORDERED: NICO7PA TD (09:32)
[2017-08-21] MEDS ORDERED: QUET1TAB7 PO ×2 (09:32)
[2017-08-21] MEDS ORDERED: Sertraline Hcl PO (09:32)
--- NOTE | 2017-08-21 17:11 | MHDSPDOC ---
[facility] Discharge Summary Discharge Summary DATE OF ADMISSION: Aug 11, 2017 at 19:04 DATE OF DISCHARGE: Aug 21, 2017 at 09:50 DISCHARGE DIAGNOSES: 1. Poly substance abuse disorder 2. substance induced mood disorder 3. anxiety disorder, unspecified 4. Depressive disorder unspecified. REASON FOR ADMISSION: suicide ideation after relapse with heroin. pt was also using benzo's while prescribed Suboxone as well as other substances. CONSULTANTS INVOLVED:na TREATMENT AND PROGRESS ON THE UNIT : pt was traveling to [facility] to see a doctor for her Suboxone prescription. Her friend that would drive her from suicide recently and she had to rely on another person who demanded half her Suboxone, in payment for the trip, to take her to [facility]. Once she was out of Suboxone she used heroine again and after 2 weeks could not stand it and was suicidal. She came in for treatment and we were minh enough to find her a Suboxone provider locally to take her on. She has a very long h/o substance abuse. Pt had a very difficult withdrawal period lasting several days. She was better by day 4 and day 5. She was given Suboxone on the unit once we knew she could get into a Suboxone program. She also agreed to attend outpatient treatment for her addictions. Pt attended few programs due to her acute illness for much of her stay. When she felt okay she did go to groups. Once feeling well she was social with peers and roommate. She often ate in her room and preferred to keep to herself. HOSPITAL COURSE: as above. DISCHARGE ASSESSMENT: Pt realizes she has a long road ahead in her recovery. She knows she must develop a network of support that involves like-minded people. She has a young son who needs her to be healthy and clean. Her mother is very discouraged that Lyndsay can be a positive influence on her son and may present challenges to Lyndsay and her ability to mother. Pt has addictions to kervin'os as well as opiates. She even had amphetamines in her system on admission . She was informed that mixing benzo's with her Suboxone could be lethal and abusing substance while in treatment could get her kicked out of Dr. Mcdonald's program. MENTAL STATUS EXAMINATION ON DISCHARGE: General appearance: Patient is a 36-year old female, who is dressed in hospital pj's, and her own sweater, hygiene is good, good eye contact, pleasant. Speech: spontaneous, whispers Thought processes: linear Thought content: appropriate Abstract reasoning and computation: good Description of associations: good Description of abnormal or psychotic thoughts: denies psychotic symptoms. no psychotic symptoms illicited. Judgment: fair Insight: good. Orientation: well oriented. Recent and remote memory:grossly intact Attention span and concentration: good Fund of knowledge: full Mood: anxious, euthymic Affect: congruent MEDICATIONS ON DISCHARGE: - sertraline for anxiety/depression. - seroquel for mood/anxiety. - trazodone for sleep -clonidine for anxiety -nicotine patch for nicotine withdrawal. PLAN/FOLLOWUP ARRANGEMENTS: Dr. Mcdonald's office this morning for intake and script , follow up as directed. Walk in [facility] for therapy, [facility] outpatient for med mgt. The amount of time spent in the coordination of care for this patient was approximately 30 minutes. Vital Signs/I&Os Vital Signs Date Time Temp Pulse Resp B/P (MAP) Pulse Ox O2 Delivery O2 Flow Rate FiO2 08/21/17 08:37 124/83 08/21/17 07:06 97.8 62 14 Room Air 08/18/17 02:13 100 Medications Scheduled Clonidine Hcl (Catapres) 0.1 Mg Tab, 0.1 MG PO TID for ANXIETY for 7 Days, #21 Nicotine (Nicotine Transdermal Syst) 7 Mg/24 Hr Dis, 1 PATCH TD DAILY for NICOTINE WITHDRAWAL for 7 Days, #7 Quetiapine Fumerate (Quetiapine Fumarate) 25 Mg Tab, 12.5 MG PO BID for mood/ anxiety for 7 Days, #14 Trazodone HCl (Trazodone HCl) 100 Mg Tab, 100 MG PO QHSP for INSOMNIA for 7 Days , #7 [Sertraline Hcl] 100 MG TAB, 200 MG PO DAILY for DEPRESSION for 7 Days, #14 do not miss doses or stop med abruptly Scheduled PRN Quetiapine Fumerate (Quetiapine Fumarate) 25 Mg Tab, 12.5 MG PO Q8HP PRN for ANXIETY for 7 Days, #21 take as needed for calming Allergies Coded Allergies: Codeine (Verified Allergy, Intermediate, SWELLING (non-specified), 03/01/13) Cephalosporins (Verified Allergy, Mild, POSSIBLY RASH, 03/01/13) Quinolones (Verified Allergy, Mild, POSSIBLE RASH, 03/01/13) Sulfa Drugs (Verified Allergy, Mild, RASH, 03/01/13) Sulfa Drugs Cross Reactors (Verified Allergy, Mild, RASH, 03/01/13) Latex (Verified Allergy, Unknown, 03/01/13) Ondansetron (Unverified Allergy, Unknown, 01/15/17) Metoclopramide (Verified Adverse Reaction, Mild, ANXIETY, 03/01/13) America Alcazar Aug 21, 2017 17:11
== END 2017-08-21 09:50 | disposition home or self-care (01) | DRG 773 ==
LOC: EDBD 10:03 → M ED 10:03 → M ED INP 19:04 → M PSY 20:13
PROVIDERS: ADMIT Psychiatry & Neurology Psychiatry; ATTEND Psychiatry & Neurology Psychiatry
DX: F19.94 Other psychoactive substance use, unspecified with psychoactive substance-induced mood disorder (principal); R45.851 Suicidal ideations; F11.10 Opioid abuse, uncomplicated; F41.9 Anxiety disorder, unspecified; F32.9 Major depressive disorder, single episode, unspecified; Z79.899 Other long term (current) drug therapy; Z88.5 Allergy status to narcotic agent; Z88.2 Allergy status to sulfonamides; Z91.040 Latex allergy status; Z88.8 Allergy status to other drugs, medicaments and biological substances; G47.00 Insomnia, unspecified; F17.200 Nicotine dependence, unspecified, uncomplicated; E87.6 Hypokalemia

== ENCOUNTER 2017-10-16 09:09 | Outpatient (RCR) | payer MEDICAID ==
[~2017-10-16 09:09] MED LIST changes: +CLONI1TA PO; +NICO7PA TD; +PATIENT COMMENT; +QUET1TAB7 PO; +Sertraline Hcl PO; +TRAZ-136 PO
== END 2017-10-30 ==
LOC: M OUTALCOH 09:09
PROVIDERS: ATTEND Psychiatry & Neurology Psychiatry
DX: F10.20 Alcohol dependence, uncomplicated (principal); F17.200 Nicotine dependence, unspecified, uncomplicated; F11.20 Opioid dependence, uncomplicated

== ENCOUNTER 2017-11-10 09:04 | Outpatient (RCR) | payer MEDICAID | END 2017-11-30 | LOC: M OUTALCOH 09:04 | DX: F10.20 Alcohol dependence, uncomplicated (principal); F17.200 Nicotine dependence, unspecified, uncomplicated; F11.20 Opioid dependence, uncomplicated ==

== ENCOUNTER 2017-12-17 14:58 | Outpatient (RCR) | payer MEDICAID | END 2017-12-31 | LOC: M OUTALCOH 12-25 14:00 | DX: F10.20 Alcohol dependence, uncomplicated (principal); F17.200 Nicotine dependence, unspecified, uncomplicated; F11.20 Opioid dependence, uncomplicated ==

== ENCOUNTER → 2017-12-17 | Outpatient (REF) | payer MEDICAID ==
[2017-12-22 08:08] LABS: OXYCODONE SCREEN Negative ng/mL (Cutoff:5)
== END ==
LOC: M LABDRAW1 15:14
DX: F11.20 Opioid dependence, uncomplicated (principal)

== ENCOUNTER 2018-01-26 09:48 | Outpatient (RCR) | payer MEDICAID | END 2018-01-28 | LOC: M OUTALCOH 09:48 | DX: F10.20 Alcohol dependence, uncomplicated (principal); F17.200 Nicotine dependence, unspecified, uncomplicated; F11.20 Opioid dependence, uncomplicated ==

== ENCOUNTER 2018-02-05 15:55 | Outpatient (RCR) | payer MEDICAID | END 2018-02-28 | LOC: M OUTALCOH 15:55 | DX: F10.20 Alcohol dependence, uncomplicated (principal); F17.200 Nicotine dependence, unspecified, uncomplicated; F11.20 Opioid dependence, uncomplicated ==

== ENCOUNTER 2018-02-27 19:15 | Emergency (ER) | payer OTHER, MEDICAID ==
[2018-02-27] MEDS: ASPIRIN 81 MG CHEW TABLET PO (21:10)
[2018-02-27 21:54] LABS: AMPHETAMINES LEVEL URINE NEGATIVE (NEGATIVE); BARBITURATES URINE NEGATIVE (NEGATIVE); BENZODIAZEPINES URINE POSITIVE (NEGATIVE); CANNABINOIDS URINE NEGATIVE (NEGATIVE); COCAINE METABOLITE URINE NEGATIVE (NEGATIVE); METHADONE URINE NEGATIVE (NEGATIVE); OPIATES URINE NEGATIVE (NEGATIVE); PHENCYCLIDINE URINE NEGATIVE (NEGATIVE)
[2018-02-27 22:23] LABS: BASO % 0.3 % (0.0-1.0); EOS # 0.5 10^3/uL (0.0-0.50); HEMATOCRIT 39.9 % (36.0-47.0); HEMOGLOBIN 13.2 g/dl (12.0-15.5); IMMATURE GRANULOCYTE % 0.2 % (0-3.0); LYMPH # 2.8 10^3/uL (1.5-4.5); MEAN CORPUSCULAR HEMOGLOBIN 30.8 pg (27.0-33.0); MEAN CORPUSCULAR HGB CONC 33.1 g/dl (32.0-36.5); MONO # 0.7 10^3/uL (0.0-0.8); MONO % 10.1 % (0.0-5.0); NEUTROPHILS # 2.5 10^3/uL (1.8-7.7); NEUTROPHILS % 38.4 % (36.0-66.0); PLATELET COUNT, AUTOMATED 262 10^3/uL (150-450); RED BLOOD COUNT 4.29 10^6/uL (4.00-5.40); RED CELL DISTRIBUTION WIDTH 13.3 % (11.5-14.5); WHITE BLOOD COUNT 6.5 10^3/uL (4.0-10.0)
[2018-02-27 22:30] LABS: INR 0.94; PROTHROMBIN TIME 12.6 SECONDS (12.4-14.5)
[2018-02-27 22:56] LABS: ALBUMIN 3.4 GM/DL (3.2-5.2); ALBUMIN/GLOBULIN RATIO 0.89 (1.00-1.93); ALKALINE PHOSPHATASE 58 U/L (45-117); ALT/SGPT 21 U/L (12-78); ANION GAP 5 MEQ/L (8-16); AST/SGOT 17 U/L (7-37); BILIRUBIN,DIRECT < 0.1 MG/DL (0.0-0.2); BILIRUBIN,TOTAL 0.3 MG/DL (0.2-1.0); BLOOD UREA NITROGEN 13 MG/DL (7-18); CALCIUM LEVEL 8.7 MG/DL (8.5-10.1); CARBON DIOXIDE LEVEL 25 MEQ/L (21-32); CHLORIDE LEVEL 114 MEQ/L (98-107); CK-MB VALUE MASS 6.5 NG/ML (<3.6); CPK CREATINE PHOSPHOKINASE 318 U/L (26-192); CREATININE FOR GFR 0.82 MG/DL (0.55-1.30); GLOMERULAR FILTRATION RATE > 60.0 (>60); GLUCOSE, FASTING 91 MG/DL (70-100); MB/CK RELATIVE INDEX 2.04 (< OR =4); POTASSIUM SERUM 3.9 MEQ/L (3.5-5.1); SODIUM LEVEL 144 MEQ/L (136-145); TOTAL PROTEIN 7.2 GM/DL (6.4-8.2); TROPONIN I < 0.02 NG/ML (< 0.10)
== END 2018-02-27 23:27 | disposition home or self-care (01) ==
LOC: M ED 19:15
DX: F41.1 Generalized anxiety disorder (principal); K21.9 Gastro-esophageal reflux disease without esophagitis; R60.9 Edema, unspecified; F17.200 Nicotine dependence, unspecified, uncomplicated; Z79.899 Other long term (current) drug therapy; Z88.5 Allergy status to narcotic agent; Z88.8 Allergy status to other drugs, medicaments and biological substances; Z91.040 Latex allergy status; Z88.2 Allergy status to sulfonamides; Z88.1 Allergy status to other antibiotic agents
CPT/HCPCS: 71045

== ENCOUNTER 2018-03-06 15:47 | Outpatient (RCR) | payer MEDICAID | END 2018-03-30 | LOC: M OUTALCOH 15:47 | DX: F10.20 Alcohol dependence, uncomplicated (principal); F17.200 Nicotine dependence, unspecified, uncomplicated; F11.20 Opioid dependence, uncomplicated ==

== ENCOUNTER 2018-03-12 22:26 | Inpatient (IN) | payer MEDICAID, OTHER ==
[2018-03-13 00:48] LABS: HEMATOCRIT 37.3 % (36.0-47.0); HEMOGLOBIN 12.6 g/dl (12.0-15.5); MEAN CORPUSCULAR HEMOGLOBIN 31.2 pg (27.0-33.0); MEAN CORPUSCULAR HGB CONC 33.8 g/dl (32.0-36.5); MEAN CORPUSCULAR VOLUME 92.3 fl (80.0-96.0); PLATELET COUNT, AUTOMATED 308 10^3/uL (150-450); RED BLOOD COUNT 4.04 10^6/uL (4.00-5.40); RED CELL DISTRIBUTION WIDTH 12.9 % (11.5-14.5); WHITE BLOOD COUNT 7.7 10^3/uL (4.0-10.0)
[2018-03-13 01:05] LABS: CONTROL LINE HCG INT CTR LINE PRESENT; HCG, SERUM QUALITATIVE NEGATIVE (NEGATIVE)
[2018-03-13 01:10] LABS: AMPHETAMINES LEVEL URINE NEGATIVE (NEGATIVE); BARBITURATES URINE NEGATIVE (NEGATIVE); BENZODIAZEPINES URINE POSITIVE (NEGATIVE); CANNABINOIDS URINE NEGATIVE (NEGATIVE); COCAINE METABOLITE URINE NEGATIVE (NEGATIVE); METHADONE URINE NEGATIVE (NEGATIVE); OPIATES URINE NEGATIVE (NEGATIVE); PHENCYCLIDINE URINE NEGATIVE (NEGATIVE)
[2018-03-13 01:54] LABS: ACETAMINOPHEN LEVEL < 2.0 UG/ML (10.0-30.0); ALBUMIN 3.3 GM/DL (3.2-5.2); ALBUMIN/GLOBULIN RATIO 1.03 (1.00-1.93); ALKALINE PHOSPHATASE 59 U/L (45-117); ALT/SGPT 23 U/L (12-78); ANION GAP 8 MEQ/L (8-16); AST/SGOT 14 U/L (7-37); BILIRUBIN,DIRECT < 0.1 MG/DL (0.0-0.2); BILIRUBIN,TOTAL 0.2 MG/DL (0.2-1.0); BLOOD UREA NITROGEN 13 MG/DL (7-18); CALCIUM LEVEL 8.6 MG/DL (8.5-10.1); CARBON DIOXIDE LEVEL 26 MEQ/L (21-32); CHLORIDE LEVEL 110 MEQ/L (98-107); CREATININE FOR GFR 0.82 MG/DL (0.55-1.30); ETHYL ALCOHOL (ETHANOL) < 0.003 % (0.000-0.010); GLOMERULAR FILTRATION RATE > 60.0 (>60); GLUCOSE, FASTING 104 MG/DL (70-100); POTASSIUM SERUM 3.9 MEQ/L (3.5-5.1); SALICYLATE LEVEL 2.6 MG/DL (5.0-30.0); SODIUM LEVEL 144 MEQ/L (136-145); THYROID STIMULATING HORMONE 0.449 uIU/ML (0.358-3.740); TOTAL PROTEIN 6.5 GM/DL (6.4-8.2)
[2018-03-13] MEDS ORDERED: MOM 30ML SUSPENSION UDC PO (02:15)
[2018-03-13] MEDS: traZODone 50 MG TAB PO ×2 (03:13→21:30)
[2018-03-13] MEDS: ACETAMINOPHEN TAB 650MG DOSE (2X325MG) PO (03:14)
[2018-03-13] MEDS ORDERED: OMEPRAZOLE 20 MG CAP PO (10:15)
[2018-03-13] MEDS ORDERED: ISOVUE-370 76% 100ML VIAL (Q9967) As Ordered (10:23)
[2018-03-13 10:45] LABS: HEMATOCRIT 37.9 % (36.0-47.0); HEMOGLOBIN 12.5 g/dl (12.0-15.5); MEAN CORPUSCULAR HEMOGLOBIN 30.5 pg (27.0-33.0); MEAN CORPUSCULAR VOLUME 92.4 fl (80.0-96.0); PLATELET COUNT, AUTOMATED 288 10^3/uL (150-450); RED CELL DISTRIBUTION WIDTH 12.8 % (11.5-14.5); WHITE BLOOD COUNT 6.7 10^3/uL (4.0-10.0)
[2018-03-13 11:34] LABS: HEPATITIS B SURFACE ANTIGEN NEGATIVE (NEGATIVE)
[2018-03-13] MEDS: ERYTHROMYCIN OPHTH OINT OS ×3 (11:35→20:08)
[2018-03-13 12:01] LABS: HEPATITIS B CORE ANTIBODY IGM NEGATIVE (NEGATIVE)
[2018-03-13 12:02] LABS: HIV 1&2 SCREEN CENTAUR NEGATIVE (NEGATIVE)
[2018-03-13 12:03] LABS: HEPATITIS A ANTIBODY IGM NEGATIVE (NEGATIVE)
[2018-03-13 12:16] LABS: HEPATITIS C VIRUS ABY INDEX > 11.0 INDEX (<0.8)
[2018-03-13] MEDS ORDERED: clonazePAM 0.5 MG TAB PO (13:15)
[2018-03-13] MEDS: BUPRENORPHINE/NALOXONE 8-2MG SUBLINGUAL TABLET(SUBOXONE) SL (14:16)
[2018-03-13] MEDS: CLINDAMYCIN 150 MG CAP PO ×2 (14:20→20:08)
[2018-03-13] MEDS: clonazePAM 0.5 MG TAB PO ×2 (14:23→20:08)
[2018-03-13] MEDS: DOXEPIN 25 MG CAP PO (20:08)
[2018-03-14] MEDS: CLINDAMYCIN 150 MG CAP PO ×3 (06:02→20:54)
[2018-03-14] MEDS: ERYTHROMYCIN OPHTH OINT OS ×3 (08:16→20:54)
[2018-03-14] MEDS: BUPRENORPHINE/NALOXONE 8-2MG SUBLINGUAL TABLET(SUBOXONE) SL (08:16)
[2018-03-14] MEDS: clonazePAM 0.5 MG TAB PO ×2 (14:39→20:54)
[2018-03-14] MEDS: DOXEPIN 25 MG CAP PO (20:54)
[2018-03-14] MEDS: traZODone 50 MG TAB PO (20:54)
[2018-03-14] MEDS: MAALOX 30 ML SUSP *UDC PO (20:56)
[2018-03-14] MEDS: ACETAMINOPHEN TAB 650MG DOSE (2X325MG) PO (23:58)
[2018-03-15] MEDS: CLINDAMYCIN 150 MG CAP PO ×3 (06:19→21:44)
[2018-03-15] MEDS: BUPRENORPHINE/NALOXONE 8-2MG SUBLINGUAL TABLET(SUBOXONE) SL (08:53)
[2018-03-15] MEDS: ERYTHROMYCIN OPHTH OINT OS ×3 (08:53→20:11)
[2018-03-15] MEDS: ACETAMINOPHEN TAB 650MG DOSE (2X325MG) PO ×2 (08:53→20:12)
[2018-03-15] MEDS: clonazePAM 0.5 MG TAB PO (14:41)
[2018-03-15] MEDS: DOXEPIN 25 MG CAP PO (20:11)
[2018-03-15] MEDS: traZODone 50 MG TAB PO (20:11)
[2018-03-16] MEDS: CLINDAMYCIN 150 MG CAP PO ×3 (06:18→21:24)
[2018-03-16 08:06] LABS: HCV RNA NAA QUALITATIVE Negative (Negative)
[2018-03-16] MEDS: ACETAMINOPHEN TAB 650MG DOSE (2X325MG) PO ×2 (08:39→21:24)
[2018-03-16] MEDS: ERYTHROMYCIN OPHTH OINT OS ×3 (08:39→21:24)
[2018-03-16] MEDS: clonazePAM 0.5 MG TAB PO ×2 (08:44→19:06)
[2018-03-16] MEDS: BUPRENORPHINE/NALOXONE 8-2MG SUBLINGUAL TABLET(SUBOXONE) SL (09:32)
[2018-03-16] MEDS ORDERED: PILL CRUSHER/CUTTER 1 EACH XX (15:00)
[2018-03-16] MEDS: BUPRENORPHINE/NALOXONE 2-0.5MG SUBLINGUAL TABLET(SUBOXONE) SL (15:45)
[2018-03-16] MEDS: DOXEPIN 25 MG CAP PO (21:24)
[2018-03-16] MEDS: traZODone 50 MG TAB PO (21:25)
[2018-03-17] MEDS: CLINDAMYCIN 150 MG CAP PO (06:10)
[2018-03-17] MEDS: ERYTHROMYCIN OPHTH OINT OS (08:21)
[2018-03-17] MEDS: ACETAMINOPHEN TAB 650MG DOSE (2X325MG) PO (09:09)
[2018-03-17] MEDS: BUPRENORPHINE/NALOXONE 8-2MG SUBLINGUAL TABLET(SUBOXONE) SL (09:09)
[2018-03-17] MEDS: clonazePAM 0.5 MG TAB PO (10:04)
== END 2018-03-17 12:30 | disposition home or self-care (01) | DRG 882 ==
LOC: M ED INP 03-13 02:04 → M PSY 03-13 02:30 → M ED 22:26
DX: F43.10 Post-traumatic stress disorder, unspecified (principal); R45.851 Suicidal ideations; H00.034 Abscess of left upper eyelid; F41.1 Generalized anxiety disorder; F17.210 Nicotine dependence, cigarettes, uncomplicated; K21.9 Gastro-esophageal reflux disease without esophagitis; F32.9 Major depressive disorder, single episode, unspecified; F11.10 Opioid abuse, uncomplicated; Z79.899 Other long term (current) drug therapy; Z88.2 Allergy status to sulfonamides; Z91.040 Latex allergy status; Z88.1 Allergy status to other antibiotic agents; Z88.5 Allergy status to narcotic agent; Z87.442 Personal history of urinary calculi; Z90.49 Acquired absence of other specified parts of digestive tract

== ENCOUNTER 2018-03-31 10:51 | Outpatient (RCR) | payer MEDICAID | END 2018-04-30 | LOC: M OUTALCOH 10:51 | DX: F10.20 Alcohol dependence, uncomplicated (principal); F17.200 Nicotine dependence, unspecified, uncomplicated; F11.20 Opioid dependence, uncomplicated ==

== ENCOUNTER 2018-05-08 11:10 | Outpatient (RCR) | payer MEDICAID | END 2018-05-30 | LOC: M OUTALCOH 11:10 | DX: F10.20 Alcohol dependence, uncomplicated (principal); F17.200 Nicotine dependence, unspecified, uncomplicated; F11.20 Opioid dependence, uncomplicated ==

== ENCOUNTER 2018-06-01 10:23 | Outpatient (RCR) | payer MEDICAID | END 2018-06-30 | LOC: M OUTALCOH 06-04 11:00 | DX: F10.20 Alcohol dependence, uncomplicated (principal); F17.200 Nicotine dependence, unspecified, uncomplicated; F11.20 Opioid dependence, uncomplicated ==

== ENCOUNTER 2018-06-06 07:02 | Inpatient (IN) | payer OTHER, MEDICAID ==
[2018-06-06] MEDS: NS 1,000 ML IV (07:15)
[2018-06-06] MEDS: NALOXONE INJ 2 MG/2 ML SYRINGE (J2310) IV (07:17)
[2018-06-06] MEDS ORDERED: NALOXONE INJ 2 MG/2 ML SYRINGE (J2310) As Ordered (07:18)
[2018-06-06 07:32] LABS: BASO # 0.1 10^3/uL (0.0-0.2); BASO % 0.4 % (0.0-1.0); EOS # 0.6 10^3/uL (0.0-0.50); EOS % 5.5 % (0.0-3.0); HEMATOCRIT 40.3 % (36.0-47.0); HEMOGLOBIN 13.8 g/dl (12.0-15.5); IMMATURE GRANULOCYTE % 0.4 % (0-3.0); LYMPH # 3.2 10^3/uL (1.5-4.5); LYMPH % 27.7 % (24.0-44.0); MEAN CORPUSCULAR HEMOGLOBIN 31.1 pg (27.0-33.0); MEAN CORPUSCULAR HGB CONC 34.2 g/dl (32.0-36.5); MEAN CORPUSCULAR VOLUME 90.8 fl (80.0-96.0); MONO % 8.8 % (0.0-5.0); NEUTROPHILS # 6.6 10^3/uL (1.8-7.7); NEUTROPHILS % 57.2 % (36.0-66.0); PLATELET COUNT, AUTOMATED 296 10^3/uL (150-450); RED BLOOD COUNT 4.44 10^6/uL (4.00-5.40); RED CELL DISTRIBUTION WIDTH 12.7 % (11.5-14.5); WHITE BLOOD COUNT 11.5 10^3/uL (4.0-10.0)
[2018-06-06 07:36] LABS: ABG BASE EXCESS -2.6 (-2.0-2.0); ABG HCO3 22.4 MEQ/L (22.0-26.0); ABG O2 SATURATION 92.1 % (95.0-99.0); ABG PARTIAL PRESSURE O2 63.5 mmHg (75.0-100.0); ABG STANDARD HCO3 22.2 MEQ/L (22.0-26.0); ABG TOTAL CO2 23.7 MEQ/L (22.0-29.0); ABG pH (ARTERIAL) 7.367 UNITS (7.350-7.450)
[2018-06-06 07:45] LABS: CONTROL LINE HCG INT CTR LINE PRESENT; HCG, SERUM QUALITATIVE NEGATIVE (NEGATIVE)
[2018-06-06 08:00] LABS: ALBUMIN 3.8 GM/DL (3.2-5.2); ALBUMIN/GLOBULIN RATIO 1.09 (1.00-1.93); ALKALINE PHOSPHATASE 67 U/L (45-117); ALT/SGPT 28 U/L (12-78); ANION GAP 10 MEQ/L (8-16); AST/SGOT 17 U/L (7-37); BILIRUBIN,DIRECT 0.1 MG/DL (0.0-0.2); BILIRUBIN,TOTAL 0.4 MG/DL (0.2-1.0); BLOOD UREA NITROGEN 19 MG/DL (7-18); CALCIUM LEVEL 8.9 MG/DL (8.5-10.1); CARBON DIOXIDE LEVEL 25 MEQ/L (21-32); CHLORIDE LEVEL 107 MEQ/L (98-107); CPK CREATINE PHOSPHOKINASE 183 U/L (26-192); ETHYL ALCOHOL (ETHANOL) < 0.003 % (0.000-0.010); GLOMERULAR FILTRATION RATE > 60.0 (>60); GLUCOSE, FASTING 103 MG/DL (70-100); POTASSIUM SERUM 3.7 MEQ/L (3.5-5.1); SALICYLATE LEVEL 4.2 MG/DL (5.0-30.0); SODIUM LEVEL 142 MEQ/L (136-145); THYROID STIMULATING HORMONE 0.469 uIU/ML (0.358-3.740); TOTAL PROTEIN 7.3 GM/DL (6.4-8.2)
[2018-06-06 08:00] LABS: BEDSIDE GLUCOSE 101 MG/DL (70-105)
[2018-06-06 08:04] LABS: AMPHETAMINES LEVEL URINE NEGATIVE (NEGATIVE); BARBITURATES URINE NEGATIVE (NEGATIVE); BENZODIAZEPINES URINE POSITIVE (NEGATIVE); CANNABINOIDS URINE NEGATIVE (NEGATIVE); COCAINE METABOLITE URINE NEGATIVE (NEGATIVE); METHADONE URINE NEGATIVE (NEGATIVE); OPIATES URINE NEGATIVE (NEGATIVE); PHENCYCLIDINE URINE NEGATIVE (NEGATIVE)
[2018-06-06 08:07] LABS: ACETAMINOPHEN LEVEL < 2.0 UG/ML (10.0-30.0)
[2018-06-06] MEDS: ENOXAPARIN 40 MG/0.4 ML SYRINGE (J1650) SC (09:00)
[2018-06-06] MEDS ORDERED: cloNIDine 0.1 MG TAB PO (09:45)
[2018-06-06] MEDS ORDERED: ONDANSETRON 4MG/2ML VIAL (J2405) IV (09:45)
[2018-06-06] MEDS: MULTIVITAMIN -ADULT INJECTION 10 ML, THIAMINE INJection 100 MG, FOLIC ACID 1 MG in NS 1... IV (10:19)
[2018-06-06] MEDS ORDERED: OXAZEPAM 10 MG CAP PO (17:00)
[2018-06-06] MEDS: BUPRENORPHINE/NALOXONE 8-2MG SUBLINGUAL TABLET(SUBOXONE) SL (17:10)
[2018-06-06] MEDS: MAALOX 30 ML SUSP *UDC PO (17:10)
[2018-06-06] MEDS: KCL 20MEQ IN D5/0.45NS 1000ML 1,000 ML IV (17:10)
[2018-06-06] MEDS: PANTOPRAZOLE 20 MG TAB PO (18:33)
[2018-06-06 21:25] LABS: APPEARANCE, URINE HAZY (CLEAR); BACTERIA, URINE AUTO 2+ (NEGATIVE); BILIRUBIN, URINE AUTO NEGATIVE (NEGATIVE); BLOOD, URINE BLOOD NEGATIVE (NEGATIVE); COLOR, URINE YELLOW (YELLOW); GLUCOSE, URINE (UA) AUTO NEGATIVE (NEGATIVE); KETONE, URINE AUTO NEGATIVE (NEGATIVE); LEUKOCYTE ESTERASE, URINE AUTO NEGATIVE (NEGATIVE); NITRITE, URINE AUTO POSITIVE (NEGATIVE); PROTEIN, URINE AUTO NEGATIVE (NEGATIVE); RBC, URINE AUTO 0 /HPF (0-3); SPECIFIC GRAVITY URINE AUTO 1.024 (1.002-1.035); SQUAMOUS EPITHELIAL CELL UR AU 1 /HPF (0-6); UROBILINOGEN, URINE AUTO 0.2 mg/dL (0.0-2.0); WBC, URINE AUTO 5 /HPF (0-3)
[2018-06-06] MEDS: NITROFURANTOIN (MACROBID) 100 MG CAP PO (22:57)
[2018-06-07 04:25] LABS: HEMATOCRIT 40.5 % (36.0-47.0); HEMOGLOBIN 13.3 g/dl (12.0-15.5); MEAN CORPUSCULAR HEMOGLOBIN 31.1 pg (27.0-33.0); MEAN CORPUSCULAR HGB CONC 32.8 g/dl (32.0-36.5); MEAN CORPUSCULAR VOLUME 94.6 fl (80.0-96.0); PLATELET COUNT, AUTOMATED 258 10^3/uL (150-450); RED BLOOD COUNT 4.28 10^6/uL (4.00-5.40); RED CELL DISTRIBUTION WIDTH 12.6 % (11.5-14.5); WHITE BLOOD COUNT 8.2 10^3/uL (4.0-10.0)
[2018-06-07 04:38] LABS: CHLAMYDIA DNA AMPLIFICATION NEGATIVE (NEGATIVE); GC DNA AMPLIFICATION NEGATIVE (NEGATIVE)
[2018-06-07 04:45] LABS: ALBUMIN/GLOBULIN RATIO 0.91 (1.00-1.93); ALKALINE PHOSPHATASE 64 U/L (45-117); ALT/SGPT 23 U/L (12-78); ANION GAP 7 MEQ/L (8-16); AST/SGOT 16 U/L (7-37); BILIRUBIN,TOTAL 0.2 MG/DL (0.2-1.0); BLOOD UREA NITROGEN 10 MG/DL (7-18); CALCIUM LEVEL 7.9 MG/DL (8.5-10.1); CARBON DIOXIDE LEVEL 23 MEQ/L (21-32); CHLORIDE LEVEL 113 MEQ/L (98-107); CREATININE FOR GFR 0.78 MG/DL (0.55-1.30); GLOMERULAR FILTRATION RATE > 60.0 (>60); GLUCOSE, FASTING 98 MG/DL (70-100); MAGNESIUM LEVEL 1.9 MG/DL (1.8-2.4); POTASSIUM SERUM 3.9 MEQ/L (3.5-5.1); SODIUM LEVEL 143 MEQ/L (136-145); TOTAL PROTEIN 6.3 GM/DL (6.4-8.2)
[2018-06-07] MEDS: MULTIVITAMINS/MINERALS THERAP 1 TAB PO (09:43)
[2018-06-07] MEDS: FOLIC ACID 1 MG TAB PO (09:43)
[2018-06-07] MEDS: NITROFURANTOIN (MACROBID) 100 MG CAP PO (09:44)
[2018-06-07] MEDS: ENOXAPARIN 40 MG/0.4 ML SYRINGE (J1650) SC (09:44)
[2018-06-07] MEDS: THIAMINE 100 MG TAB PO (09:44)
[2018-06-07] MEDS: PANTOPRAZOLE 20 MG TAB PO (09:44)
[2018-06-07] MEDS: BUPRENORPHINE/NALOXONE 8-2MG SUBLINGUAL TABLET(SUBOXONE) SL (09:54)
== END 2018-06-07 15:00 | DRG 812 ==
LOC: M ED 07:02 → M ED INP 09:44 → M ICU 11:07
DX: T42.4X4A Poisoning by benzodiazepines, undetermined, initial encounter (principal); F41.9 Anxiety disorder, unspecified; F32.9 Major depressive disorder, single episode, unspecified; G47.00 Insomnia, unspecified; F17.200 Nicotine dependence, unspecified, uncomplicated; K21.9 Gastro-esophageal reflux disease without esophagitis; Z88.5 Allergy status to narcotic agent; Z88.2 Allergy status to sulfonamides; Z88.8 Allergy status to other drugs, medicaments and biological substances; Z91.040 Latex allergy status; Y92.009 Unspecified place in unspecified non-institutional (private) residence as the place of occurrence of the external cause; X83.8XXA Intentional self-harm by other specified means, initial encounter

== ENCOUNTER 2018-06-07 15:03 | Inpatient (IN) | payer MEDICAID, OTHER ==
[2018-06-07] MEDS: NICOTINE 14 MG/24 HR TRANSDERMAL TD (09:00)
[~2018-06-07 15:03] MED LIST changes: -/DULO30CA OR; -/PROM25SU; -ACET30TA PO; -ASTELIN NASAL; -ATARAX25 PO; -ATIV1TAB10 PO; -BENT20TA PO; -CLARITIN10 PO; -CLON1TAB PO; -CLONI1TA PO; -DARVOCET-N PO; -DIPH50CA PO; -EFFE150C PO; -EFFEXOR XR PO; -FENT100D25; -FLAG250T PO; -HYDR-3363 PO; -LOTRCRE; +MAALOX 30 ML SUSP *UDC PO; -MIRA255PW PO; -MOBIC15 PO; +MOM 30ML SUSPENSION UDC PO; -NAPROS500 PO; -NEXIUM40 PO; -NICO21PAT TD; -NICO7PA TD; -NIZORALCR TOP; -NORCO PO; -OPTIVAR OPTHALMIC; -PATIENT COMMENT; -PAXI40TA; -PEPC20TA2; -PERC5TAB8; -PHEN1SUP6 PR; -PHENERGAN; -PHENERGAN PO; -PRIL20CA9 PO; -PROM125TA PO; -PROM25SU; -PROZ20CA11 PO; -QUET1TAB7 PO; -REGLAN10 PO; -SENO8.6T9 PO; -SERT-138 PO; -SUBO8MIS SL; -Sertraline Hcl PO; -TORADOL PO; -TRAM50TA2; -TRAZ-136 PO; -TRAZ10TA PO; -TYLENOL#3 PO; -VICO5TA PO; -XANA0.25; -XANA0.25 PO; -XANA1TAB2 PO; -ZOFR4TAB3 PO; -ZOLO100T PO; -ZOLO50TA PO; -[UNRECOGNIZED DRUG - CODE] PO
[2018-06-07] MEDS: NITROFURANTOIN (MACROBID) 100 MG CAP PO (21:36)
[2018-06-07] MEDS: cloNIDine 0.1 MG TAB PO (21:36)
[2018-06-07] MEDS: LORazepam 1 MG TAB PO (21:36)
[2018-06-07] MEDS: traZODone 50 MG TAB PO (21:36)
[2018-06-08] MEDS: NICOTINE 14 MG/24 HR TRANSDERMAL TD (09:00)
[2018-06-08] MEDS: NITROFURANTOIN (MACROBID) 100 MG CAP PO ×2 (10:01→20:51)
[2018-06-08] MEDS: BUPRENORPHINE/NALOXONE 8-2MG SUBLINGUAL TABLET(SUBOXONE) SL (10:01)
[2018-06-08] MEDS: PHENAZOPYRIDINE 100 MG TAB PO ×2 (13:35→20:50)
[2018-06-08] MEDS: LORazepam 1 MG TAB PO (20:51)
[2018-06-08] MEDS: ACETAMINOPHEN TAB 650MG DOSE (2X325MG) PO (20:51)
[2018-06-08] MEDS: traZODone 50 MG TAB PO (20:51)
[2018-06-09] MEDS: NICOTINE 14 MG/24 HR TRANSDERMAL TD (09:00)
[2018-06-09] MEDS: PHENAZOPYRIDINE 100 MG TAB PO ×2 (09:38→20:52)
[2018-06-09] MEDS: BUPRENORPHINE/NALOXONE 8-2MG SUBLINGUAL TABLET(SUBOXONE) SL ×2 (09:38→18:18)
[2018-06-09] MEDS: NITROFURANTOIN (MACROBID) 100 MG CAP PO ×2 (09:38→20:52)
[2018-06-09] MEDS: LORazepam 1 MG TAB PO ×2 (13:58→20:52)
[2018-06-09] MEDS: traZODone 50 MG TAB PO (20:53)
[2018-06-09] MEDS: ACETAMINOPHEN TAB 650MG DOSE (2X325MG) PO (20:53)
[2018-06-09] MEDS ORDERED: BUPRENORPHINE/NALOXONE 8-2MG SUBLINGUAL TABLET(SUBOXONE) SL (21:00)
[2018-06-10] MEDS: NICOTINE 14 MG/24 HR TRANSDERMAL TD (09:00)
[2018-06-10] MEDS: BUPRENORPHINE/NALOXONE 8-2MG SUBLINGUAL TABLET(SUBOXONE) SL (09:52)
[2018-06-10] MEDS: VITAMIN D 50,000 UNITS CAPSULE (ERGOCALCIFEROL 1.25MG) PO (09:52)
[2018-06-10] MEDS: NITROFURANTOIN (MACROBID) 100 MG CAP PO (09:53)
[2018-06-10] MEDS: PHENAZOPYRIDINE 100 MG TAB PO (09:53)
[2018-06-10] MEDS: cloNIDine 0.1 MG TAB PO (10:51)
== END 2018-06-10 12:20 | disposition home or self-care (01) | DRG 881 ==
LOC: M PSY 15:03
DX: F34.1 Dysthymic disorder (principal); N39.0 Urinary tract infection, site not specified; F60.3 Borderline personality disorder; F17.210 Nicotine dependence, cigarettes, uncomplicated; G47.00 Insomnia, unspecified; K21.9 Gastro-esophageal reflux disease without esophagitis; Z79.899 Other long term (current) drug therapy; Z91.040 Latex allergy status; Z88.2 Allergy status to sulfonamides; Z88.1 Allergy status to other antibiotic agents; Z88.5 Allergy status to narcotic agent; Z87.442 Personal history of urinary calculi

== ENCOUNTER 2018-08-06 15:31 | Outpatient (RCR) | payer MEDICAID | END 2018-08-30 | LOC: M OUTALCOH 15:31 | DX: F10.20 Alcohol dependence, uncomplicated (principal); F17.200 Nicotine dependence, unspecified, uncomplicated; F11.20 Opioid dependence, uncomplicated ==

== ENCOUNTER → 2018-08-21 | Outpatient (CLI) | payer OTHER ==
[2018-08-21 12:42] LABS: HEMOGLOBIN 14.4 g/dl (12.0-15.5); MEAN CORPUSCULAR HEMOGLOBIN 31.2 pg (27.0-33.0); MEAN CORPUSCULAR HGB CONC 34.3 g/dl (32.0-36.5); MEAN CORPUSCULAR VOLUME 90.9 fl (80.0-96.0); PLATELET COUNT, AUTOMATED 359 10^3/uL (150-450); RED BLOOD COUNT 4.62 10^6/uL (4.00-5.40); RED CELL DISTRIBUTION WIDTH 12.4 % (11.5-14.5); WHITE BLOOD COUNT 8.7 10^3/uL (4.0-10.0)
[2018-08-21 13:44] LABS: ALBUMIN 3.3 GM/DL (3.2-5.2); ALBUMIN/GLOBULIN RATIO 0.87 (1.00-1.93); ALKALINE PHOSPHATASE 64 U/L (45-117); ALT/SGPT 19 U/L (12-78); ANION GAP 11 MEQ/L (8-16); AST/SGOT 13 U/L (7-37); BILIRUBIN,TOTAL 0.4 MG/DL (0.2-1.0); BLOOD UREA NITROGEN 9 MG/DL (7-18); CALCIUM LEVEL 8.5 MG/DL (8.5-10.1); CARBON DIOXIDE LEVEL 22 MEQ/L (21-32); CHLORIDE LEVEL 108 MEQ/L (98-107); CHOLESTEROL LEVEL 209 MG/DL (<200); CREATININE FOR GFR 0.86 MG/DL (0.55-1.30); GLOMERULAR FILTRATION RATE > 60.0 (>60); GLUCOSE, FASTING 91 MG/DL (70-100); HDL CHOLESTEROL 38 MG/DL (>40); LDL CHOLESTEROL 115 MG/DL (<100); NON-HDL-C 171 MG/DL; POTASSIUM SERUM 3.9 MEQ/L (3.5-5.1); SODIUM LEVEL 141 MEQ/L (136-145); THYROID STIMULATING HORMONE 0.396 uIU/ML (0.358-3.740); TOTAL 25(OH) VITAMIN D 11.6 NG/ML (30.0-100.0); TOTAL PROTEIN 7.1 GM/DL (6.4-8.2); TRIGLYCERIDES LEVEL 282 MG/DL (<150)
[2018-08-21 14:25] LABS: ESTIMATED AVERAGE GLUCOSE 111 MG/DL (60-110); HEMOGLOBIN A1c 5.5 %
== END ==
LOC: M LAB 11:35
DX: E07.9 Disorder of thyroid, unspecified (principal); R53.83 Other fatigue; R94.31 Abnormal electrocardiogram [ECG] [EKG]
CPT/HCPCS: 71046

== ENCOUNTER 2018-09-04 15:38 | Outpatient (RCR) | payer MEDICAID | END 2018-09-30 | LOC: M OUTALCOH 15:38 | DX: F10.20 Alcohol dependence, uncomplicated (principal); F17.200 Nicotine dependence, unspecified, uncomplicated; F11.20 Opioid dependence, uncomplicated ==

== ENCOUNTER 2018-09-16 14:30 | Emergency (ER) | payer OTHER, MEDICAID ==
[2018-09-16 16:46] LABS: AMPHETAMINES LEVEL URINE NEGATIVE (NEGATIVE); BARBITURATES URINE NEGATIVE (NEGATIVE); BENZODIAZEPINES URINE POSITIVE (NEGATIVE); CANNABINOIDS URINE NEGATIVE (NEGATIVE); COCAINE METABOLITE URINE NEGATIVE (NEGATIVE); METHADONE URINE NEGATIVE (NEGATIVE); OPIATES URINE NEGATIVE (NEGATIVE); PHENCYCLIDINE URINE NEGATIVE (NEGATIVE)
== END 2018-09-16 17:22 | disposition home or self-care (01) ==
LOC: M ED 14:30
DX: F19.239 Other psychoactive substance dependence with withdrawal, unspecified (principal)
CPT/HCPCS: 80307

== ENCOUNTER 2018-10-05 16:10 | Outpatient (RCR) | payer MEDICAID | END 2018-10-30 | LOC: M OUTALCOH 10-16 15:57 | DX: F10.20 Alcohol dependence, uncomplicated (principal); F17.200 Nicotine dependence, unspecified, uncomplicated; F11.20 Opioid dependence, uncomplicated ==

== ENCOUNTER 2018-11-09 09:59 | Outpatient (RCR) | payer MEDICAID ==
[~2018-11-09 09:59] MED LIST changes: +/DULO30CA OR; +/PROM25SU; +ACET30TA PO; +ASTELIN NASAL; +ATARAX25 PO; +ATIV1TAB10 PO; +BENT20TA PO; +CLARITIN10 PO; +CLEO150C PO; +CLON-412; +CLON-412 PO; +CLON0.5T8 PO; +CLON1TAB17; +CLON1TAB8 PO; +CLONI1TA PO; +DARVOCET-N PO; +DIPH50CA PO; +DOXE25CA; +DOXE25CA PO; +DRIS50003 PO; +EFFE150C2 PO; +EFFEXOR XR PO; +FENT100D25; +FLAG250T PO; +GABA-843; +HYDR-3363 PO; +HYDR50CA2; +IBUP-1022 PO; +IBUP1TAB6 PO; +LOTRCRE; -MAALOX 30 ML SUSP *UDC PO; +MACR100C43 PO; +MIRA255PW PO; +MOBIC15 PO; -MOM 30ML SUSPENSION UDC PO; +NAPROS500 PO; +NEXIUM40 PO; +NICO21PAT TD; +NICO7PA TD; +NIZORALCR TOP; +NORCO PO; +OPTIVAR OPTHALMIC; +PATIENT COMMENT; +PAXI40TA; +PEPC20TA2; +PERC5TAB8; +PHEN-500 PO; +PHEN1SUP6 PR; +PHENERGAN; +PHENERGAN PO; +PRAZ2CAP PO; +PRIL20CA9 PO; +PROM125TA PO; +PROM25SU; +PROZ20CA11 PO; +QUET1TAB7 PO; +REGLAN10 PO; +SENO8.6T9 PO; +SERT-138 PO; +SUBO8MIS SL; +Sertraline Hcl PO; +TORADOL PO; +TRAM50TA2; +TRAZ-163 PO; +TRAZ10TA PO; +TRAZO50TA PO; +TUMS500C PO; +TYLENOL#3 PO; +VICO5TA PO; +VITA50005; +XANA0.25; +XANA0.25 PO; +XANA1TAB2 PO; +ZOFR4TAB14 PO; +ZOLO100T PO; +ZOLO50TA PO; +[UNRECOGNIZED DRUG - CODE] PO
== END 2018-11-30 ==
LOC: M OUTALCOH 09:59
PROVIDERS: ATTEND Psychiatry & Neurology Psychiatry
DX: F10.20 Alcohol dependence, uncomplicated (principal); F17.200 Nicotine dependence, unspecified, uncomplicated; F11.20 Opioid dependence, uncomplicated

== ENCOUNTER → 2018-12-24 | Outpatient (REF) | payer OTHER ==
[2018-12-25 13:48] LABS: CHLAMYDIA DNA AMPLIFICATION NEGATIVE (NEGATIVE); GC DNA AMPLIFICATION NEGATIVE (NEGATIVE)
== END ==
LOC: M LAB REF 11:02
PROVIDERS: ATTEND Advanced Practice Midwife
DX: N76.1 Subacute and chronic vaginitis (principal)

== ENCOUNTER → 2019-01-11 | Outpatient (CLI) | payer OTHER ==
[~2019-01-11] MED LIST changes: +E-Z-GAS II EFFERVESCENT PACKET (SODIUM BICARB./CITRIC ACID/SIMETHICONE) As Ordered ONE; +E-Z-HD 98% w/w 340GM SUSP BTL As Ordered ONE; +E-Z-PAQUE 96% w/w SUSP 176GM BTL As Ordered ONE
--- NOTE | 2019-01-12 10:35 | REP ---
Upper GI air contrast The procedure was performed under the direct supervision of Dr. Jeffrey. The images were reviewed with Dr. Jeffrey The dry cleaning teacher film shows no organomegaly or pathological masses. The intestinal gas pattern is non-specific. There are surgical clips noted in the right upper quadrant. Liquid barium and gas producing crystals were given in the erect position as well as liquid barium in the prone oblique position in order to perform a double contrast upper GI examination. The oral and pharyngeal stages of deglutition are unremarkable. There are esophageal transport there are tertiary waves demonstrated. There is no esophagitis, stricture or mucosal ring. There is a small sliding-type hiatal hernia. Gastroesophageal reflux is not demonstrated on this examination. The stomach rod are normally outlined . The rugal folds are smooth and regular. There is no gastritis neoplasm or ulcer disease. The duodenal rod are normally outlined . The mucosal folds are smooth and regular. Within the duodenum there are thickened folds which may represent duodenitis. There is no papo ulcer identified. The visualized portion of the proximal small bowel appears normal in course and caliber. Impression: 1. Tertiary waves 2. There is a small sliding-type hiatal hernia. 3. There are thickened folds in the duodenum which may represent duodenitis. There is no papo ulcer identified. 1.5 minutes of fluoro time was utilized for this procedure. Reviewed by URIEL Osorio 01/11/2019 05:24 P Electronically Signed by Jarrett Jeffrey MD 01/12/2019 10:26 A
== END ==
LOC: M RAD 07:55
PROVIDERS: ATTEND Family Medicine
DX: K44.9 Diaphragmatic hernia without obstruction or gangrene (principal)

== ENCOUNTER 2019-05-04 14:27 | Emergency (ER) | payer MEDICAID, OTHER ==
[~2019-05-04] VITALS: Ht 172.7 cm; Wt 90.9 kg
[~2019-05-04 14:27] MED LIST changes: -/DULO30CA OR; +CYMB1CAP5 OR; -E-Z-GAS II EFFERVESCENT PACKET (SODIUM BICARB./CITRIC ACID/SIMETHICONE) As Ordered ONE; -E-Z-HD 98% w/w 340GM SUSP BTL As Ordered ONE; -E-Z-PAQUE 96% w/w SUSP 176GM BTL As Ordered ONE; -GABA-843; +GABA-843 PO; -MIRA255PW PO; +POLY1POW4 PO; +TRAZ1TAB10 PO; -TRAZO50TA PO
[2019-05-04] MEDS ORDERED: QUET1TAB7 (14:50)
[2019-05-04] MEDS ORDERED: TRAZ-163 (14:50)
[2019-05-04] MEDS ORDERED: DESV100T3 (14:50)
[2019-05-04] MEDS ORDERED: ALPR2TAB3 (14:50)
[2019-05-04] MEDS ORDERED: NS 1,000 ML IV ONE (15:30)
[2019-05-04] MEDS ORDERED: GI COCKTAIL 50ML BTL(HYOSCYAMINE/MAALOX/LIDOCAINE VISCOUS)(1:3:1) PO ONE (15:30)
[2019-05-04 16:34] LABS: BASO % 0.2 % (0.0-1.0); EOS % 0.1 % (0.0-3.0); HEMATOCRIT 45.4 % (36.0-47.0); HEMOGLOBIN 15.7 g/dl (12.0-15.5); LYMPH # 3.3 10^3/uL (1.5-4.5); LYMPH % 24.2 % (24.0-44.0); MEAN CORPUSCULAR HEMOGLOBIN 31.2 pg (27.0-33.0); MEAN CORPUSCULAR HGB CONC 34.6 g/dl (32.0-36.5); MEAN CORPUSCULAR VOLUME 90.3 fl (80.0-96.0); MONO # 1.1 10^3/uL (0.0-0.8); MONO % 8.5 % (0.0-5.0); NEUTROPHILS % 66.6 % (36.0-66.0); PLATELET COUNT, AUTOMATED 442 10^3/uL (150-450); RED BLOOD COUNT 5.03 10^6/uL (4.00-5.40); WHITE BLOOD COUNT 13.5 10^3/uL (4.0-10.0)
[2019-05-04 16:54] LABS: ALBUMIN 4.4 GM/DL (3.2-5.2); ALT/SGPT 78 U/L (12-78); BILIRUBIN,DIRECT 0.2 MG/DL (0.0-0.2); BILIRUBIN,TOTAL 0.8 MG/DL (0.2-1.0); LIPASE 48 U/L (73-393); TOTAL PROTEIN 8.9 GM/DL (6.4-8.2)
[2019-05-04 17:42] LABS: AMPHETAMINES LEVEL URINE NEGATIVE (NEGATIVE); BARBITURATES URINE NEGATIVE (NEGATIVE); BENZODIAZEPINES URINE NEGATIVE (NEGATIVE); CANNABINOIDS URINE NEGATIVE (NEGATIVE); COCAINE METABOLITE URINE NEGATIVE (NEGATIVE); METHADONE URINE NEGATIVE (NEGATIVE); OPIATES URINE NEGATIVE (NEGATIVE); PHENCYCLIDINE URINE NEGATIVE (NEGATIVE)
[2019-05-04 18:35] LABS: BLOOD UREA NITROGEN 9 MG/DL (7-18); CALCIUM LEVEL 9.1 MG/DL (8.5-10.1); CARBON DIOXIDE LEVEL 24 MEQ/L (21-32); CHLORIDE LEVEL 97 MEQ/L (98-107); CREATININE FOR GFR 0.86 MG/DL (0.55-1.30); GLOMERULAR FILTRATION RATE > 60.0 (>60); GLUCOSE, FASTING 119 MG/DL (70-100); POTASSIUM SERUM 3.3 MEQ/L (3.5-5.1); SODIUM LEVEL 133 MEQ/L (136-145)
[2019-05-04] MEDS ORDERED: ISOVUE-370 76% 100ML VIAL (Q9967) As Ordered ONE (18:44)
[2019-05-04 19:22] LABS: ETHYL ALCOHOL (ETHANOL) < 0.003 % (0.000-0.010)
--- NOTE | 2019-05-04 19:51 | REPVR ---
EXAM: CT Chest Without Contrast EXAM DATE/TIME: 05/04/2019 6:49 PM CLINICAL HISTORY: 38 years old, female; Sternal or substernal pain TECHNIQUE: Imaging protocol: Axial computed tomography images of the chest without intravenous contrast. Coronal and sagittal reformatted images were created and reviewed. Radiation optimization: All CT scans at this facility use at least one of these dose optimization techniques: automated exposure control; mA and/or kV adjustment per patient size (includes targeted exams where dose is matched to clinical indication); or iterative reconstruction. COMPARISON: No relevant prior studies available. FINDINGS: Limitations: Assessment of vascular structures, soft tissues, and organs is limited due to lack of IV contrast. Thyroid: Incidental peripherally calcified sub-1.5 cm right thyroid nodule. No follow-up indicated per ACR guidelines. Lungs: No consolidation. No masses. Pleural space: No pneumothorax. No pleural effusion. Heart: No cardiomegaly. No pericardial effusion. Aorta: No thoracic aortic aneurysm. Lymph nodes: Prior right axillary lymph node measuring 1.4 x 1.2 cm. Bones/joints: Unremarkable. No acute fracture. Soft tissues: Unremarkable. IMPRESSION: 1. No acute findings. 2. Possible reactive right axillary lymph node. 3. Nonacute/incidental findings above. COMMENT: Consistent with the [employer]'s Incidental Findings Committee Report (J Am Angelito Radiol 2015): Thyroid nodules greater than or equal to 1 cm in patients under 35 years old, or greater than or equal to 1.5 cm in patients over 35 years old, should undergo ultrasound. Patients with limited life expectancy and/or comorbidities do not require follow up imaging or biopsy for nodules of any size. Electronically signed by: Landen López On 05/04/2019 19:51:17 PM
--- NOTE | 2019-05-04 20:00 | REPVR ---
EXAM: CT Abdomen and Pelvis Without Contrast EXAM DATE/TIME: 05/04/2019 6:49 PM CLINICAL HISTORY: 38 years old, female; Abdominal pain; Epigastric; Additional info: Epigastric pain TECHNIQUE: Imaging protocol: Axial computed tomography images of the abdomen and pelvis without contrast. Coronal and sagittal reformatted images were created and reviewed. Radiation optimization: All CT scans at this facility use at least one of these dose optimization techniques: automated exposure control; mA and/or kV adjustment per patient size (includes targeted exams where dose is matched to clinical indication); or iterative reconstruction. COMPARISON: CT ABD PELVIS WITH CONTRAST 09/23/2016 11:03 AM FINDINGS: ABDOMEN: Liver: Diffusely hypodense liver consistent with hepatic steatosis, most pronounced adjacent to the falciform ligament. Gallbladder and bile ducts: Status post cholecystectomy. Similar biliary ductal dilitation, not atypical s/p cholecystectomy. Pancreas: Normal. No ductal dilation. Spleen: No splenomegaly. Adrenals: Normal. No mass. Kidneys and ureters: No hydronephrosis. No urolithiasis. Stomach and bowel: Air-fluid levels in normal caliber loops of small bowel and in the colon. No mucosal thickening. No obstruction. Appendix: Normal appendix. PELVIS: Bladder: Unremarkable as visualized. Reproductive: Unremarkable as visualized. ABDOMEN and PELVIS: Intraperitoneal space: No free air. No significant fluid collection. Bones/joints: Degenerative changes in the spine at L5-S1. No acute fracture or dislocation. Soft tissues: Unremarkable. Vasculature: No abdominal aortic aneurysm. Lymph nodes: No enlarged lymph nodes. IMPRESSION: 1. Small and large bowel air-fluid levels, which could be due to enterocolitis or dysmotility. 2. Nonacute/incidental findings above. Electronically signed by: Landen López On 05/04/2019 20:00:11 PM
[2019-05-04 21:31] VITALS: BP 130/76
[2019-05-04] MEDS ORDERED: ONDA4TAB6 PO (21:51)
== END 2019-05-04 22:19 | disposition home or self-care (01) ==
LOC: M ED 14:27 → EDBD 14:27 → M ED 22:19
DX: K52.9 Noninfective gastroenteritis and colitis, unspecified (principal); Z88.1 Allergy status to other antibiotic agents; Z88.2 Allergy status to sulfonamides; Z88.8 Allergy status to other drugs, medicaments and biological substances; Z88.5 Allergy status to narcotic agent; Z91.040 Latex allergy status; Z79.899 Other long term (current) drug therapy
CPT/HCPCS: 36415; 71250; 74176; 80048; 80076; 80307; 81001; 83690; 85025; 93041; 99284; G0480

== ENCOUNTER 2019-05-21 12:53 | Outpatient (RCR) | payer MEDICAID ==
[~2019-05-21 12:53] MED LIST changes: +ALPR2TAB3; +DESV100T3; +ONDA4TAB6 PO; +QUET1TAB7; +TRAZ-163
== END 2019-05-30 ==
LOC: M OUTALCOH 12:53
PROVIDERS: ATTEND Psychiatry & Neurology Psychiatry
DX: F10.20 Alcohol dependence, uncomplicated (principal); F17.200 Nicotine dependence, unspecified, uncomplicated; F11.20 Opioid dependence, uncomplicated

== ENCOUNTER → 2019-12-03 | Outpatient (CLI) | payer MEDICAID, OTHER ==
[~2019-12-03] MED LIST changes: +CLON0.5T2 PO; -CLON0.5T8 PO
--- NOTE | 2019-12-03 08:39 | ECGEPIP ---
[facility] Test Date: 2019-12-03 Pat Name: SEGUNDO MCLAUGHLIN Department: Room: - Gender: Female Program Aide: DOYLE : 1980 Requested By: Shawn Thurman Order Number: [id number] Reading MD: Landen Gold Measurements Intervals [place] Rate: 90 P: 11 NC: 157 QRS: 44 QRSD: 89 T: 40 QT: 362 QTc: 444 Interpretive Statements Normal sinus rhythm Low QRS complex voltage in the limb leads Delayed anterior R wave progression No significant change when compared to prior tracing of 08/21/2018 Electronically Signed on 12-03-2019 8:39:25 EST by Landen Gold
--- NOTE | 2019-12-03 08:42 | REP ---
Clinical: Hypertension . Comparison: 08/21/2018 . Technique: PA and lateral. Findings: The mediastinum and cardiac silhouette are normal. The lung barrera are clear and without acute consolidation, effusion, or pneumothorax. The skeletal structures are intact and normal. Impression: 1. No acute cardiopulmonary process. Electronically Signed by Severo Scott MD 12/03/2019 08:34 A
[2019-12-03 08:45] LABS: HEMOGLOBIN 15.6 g/dl (12.0-15.5); MEAN CORPUSCULAR HEMOGLOBIN 29.8 pg (27.0-33.0); MEAN CORPUSCULAR HGB CONC 31.2 g/dl (32.0-36.5); MEAN CORPUSCULAR VOLUME 95.6 fl (80.0-96.0); PLATELET COUNT, AUTOMATED 397 10^3/uL (150-450); RED BLOOD COUNT 5.23 10^6/uL (4.00-5.40); WHITE BLOOD COUNT 9.2 10^3/uL (4.0-10.0)
[2019-12-03 09:25] LABS: ALBUMIN 3.7 GM/DL (3.2-5.2); ALT/SGPT 44 U/L (12-78); BILIRUBIN,TOTAL 0.4 MG/DL (0.2-1.0); BLOOD UREA NITROGEN 14 MG/DL (7-18); CALCIUM LEVEL 9.5 MG/DL (8.5-10.1); CARBON DIOXIDE LEVEL 25 MEQ/L (21-32); CHLORIDE LEVEL 106 MEQ/L (98-107); CHOLESTEROL LEVEL 331 MG/DL (<200); CHOLESTEROL RISK RATIO 7.522 (<5); CREATININE FOR GFR 0.93 MG/DL (0.55-1.30); GLOMERULAR FILTRATION RATE > 60.0 (>58); GLUCOSE, FASTING 106 MG/DL (70-100); HDL CHOLESTEROL 44 MG/DL (>40); LDL CHOLESTEROL 207 MG/DL (<100); NON-HDL-C 287 MG/DL; POTASSIUM SERUM 4.4 MEQ/L (3.5-5.1); SODIUM LEVEL 139 MEQ/L (136-145); TOTAL PROTEIN 7.7 GM/DL (6.4-8.2); TRIGLYCERIDES LEVEL 399 MG/DL (<150)
[2019-12-03 10:03] LABS: HEMOGLOBIN A1c 5.9 %
[2019-12-03 10:46] LABS: TOTAL 25(OH) VITAMIN D 12.5 NG/ML (30.0-100.0)
== END ==
LOC: M LAB 07:57
PROVIDERS: ATTEND Family Medicine
DX: R94.31 Abnormal electrocardiogram [ECG] [EKG] (principal); E11.9 Type 2 diabetes mellitus without complications; I10 Essential (primary) hypertension

== ENCOUNTER → 2021-07-19 | Outpatient (CLI) | payer OTHER, MEDICARE ==
[~2021-07-19] MED LIST changes: +GABA-282 PO; -GABA-843 PO; +QUET1TAB17; +QUET1TAB17 PO; -QUET1TAB7; -QUET1TAB7 PO; -TRAZ-163; -TRAZ-163 PO; +TRAZ-257; +TRAZ-257 PO; -TRAZ10TA PO; +TRAZ1TAB12 PO
[2021-07-19 15:42] LABS: HEMATOCRIT 46.4 % (36.0-47.0); HEMOGLOBIN 15.1 g/dl (12.0-15.5); MEAN CORPUSCULAR HEMOGLOBIN 30.9 pg (27.0-33.0); MEAN CORPUSCULAR HGB CONC 32.5 g/dl (32.0-36.5); MEAN CORPUSCULAR VOLUME 95.1 fl (80.0-96.0); PLATELET COUNT, AUTOMATED 390 10^3/uL (150-450); RED BLOOD COUNT 4.88 10^6/uL (4.00-5.40); WHITE BLOOD COUNT 9.9 10^3/uL (4.0-10.0)
[2021-07-19 16:07] LABS: HEMOGLOBIN A1c 5.7 %
[2021-07-19 16:26] LABS: ALBUMIN 3.5 GM/DL (3.2-5.2); ALT/SGPT 43 U/L (12-78); BILIRUBIN,TOTAL 0.3 MG/DL (0.2-1.0); BLOOD UREA NITROGEN 13 MG/DL (7-18); CALCIUM LEVEL 8.8 MG/DL (8.5-10.1); CARBON DIOXIDE LEVEL 25 MEQ/L (21-32); CHLORIDE LEVEL 106 MEQ/L (98-107); CHOLESTEROL LEVEL 310 MG/DL (<200); CHOLESTEROL RISK RATIO 9.117 (<5); CREATININE FOR GFR 1.03 MG/DL (0.55-1.30); FREE T4 0.81 NG/DL (0.76-1.46); GLOMERULAR FILTRATION RATE > 60.0 (>58); GLUCOSE, FASTING 111 MG/DL (70-100); HDL CHOLESTEROL 34 MG/DL (>40); NON-HDL-C 276 MG/DL; POTASSIUM SERUM 4.3 MEQ/L (3.5-5.1); SODIUM LEVEL 138 MEQ/L (136-145); THYROID STIMULATING HORMONE 0.631 uIU/ML (0.358-3.740); TOTAL 25(OH) VITAMIN D 12.8 NG/ML (30.0-100.0); TOTAL PROTEIN 7.3 GM/DL (6.4-8.2); TRIGLYCERIDES LEVEL 748 MG/DL (<150)
== END ==
LOC: M PLALAB 12:18
PROVIDERS: ATTEND Physician Assistant
DX: R73.03 Prediabetes (principal); R63.5 Abnormal weight gain; R53.83 Other fatigue

== ENCOUNTER → 2022-01-23 | Outpatient (CLI) | payer OTHER ==
[2022-01-23 13:19] LABS: BASO % 0.5 % (0.0-1.0); EOS # 0.4 10^3/uL (0.0-0.5); EOS % 4.7 % (0.0-3.0); HEMATOCRIT 43.9 % (36.0-47.0); HEMOGLOBIN 14.3 g/dl (12.0-15.5); LYMPH # 2.6 10^3/uL (1.5-5.0); MEAN CORPUSCULAR HEMOGLOBIN 31.1 pg (27.0-33.0); MEAN CORPUSCULAR HGB CONC 32.6 g/dl (32.0-36.5); MEAN CORPUSCULAR VOLUME 95.4 fl (80.0-96.0); MONO # 0.9 10^3/uL (0.0-0.8); MONO % 10.6 % (2.0-8.0); NEUTROPHILS # 4.2 10^3/uL (1.5-8.5); NEUTROPHILS % 51.8 % (36.0-66.0); PLATELET COUNT, AUTOMATED 356 10^3/uL (150-450); WHITE BLOOD COUNT 8.2 10^3/uL (4.0-10.0)
[2022-01-23 14:35] LABS: HEMOGLOBIN A1c 5.6 %
[2022-01-23 22:35] LABS: ALBUMIN 3.4 GM/DL (3.2-5.2); ALT/SGPT 42 U/L (12-78); BILIRUBIN,TOTAL 0.3 MG/DL (0.2-1.0); BLOOD UREA NITROGEN 15 MG/DL (7-18); CALCIUM LEVEL 8.6 MG/DL (8.5-10.1); CARBON DIOXIDE LEVEL 23 MEQ/L (21-32); CHLORIDE LEVEL 108 MEQ/L (98-107); CHOLESTEROL LEVEL 224 MG/DL (<200); CHOLESTEROL RISK RATIO 5.743 (<5); CREATININE FOR GFR 0.93 MG/DL (0.55-1.30); FERRITIN 40 NG/ML (8-252); GLOMERULAR FILTRATION RATE > 60.0 (>58); GLUCOSE, FASTING 108 MG/DL (70-100); HDL CHOLESTEROL 39 MG/DL (>40); IRON (FE) 89 UG/DL (50-170); LDL CHOLESTEROL 124 MG/DL (<100); NON-HDL-C 185 MG/DL; PERCENT SATURATION 18.2 % (13.2-45.0); POTASSIUM SERUM 4.4 MEQ/L (3.5-5.1); SODIUM LEVEL 140 MEQ/L (136-145); THYROID STIMULATING HORMONE 0.797 uIU/ML (0.358-3.740); TOTAL IRON BINDING CAPACITY 490 UG/DL (250-450); TRIGLYCERIDES LEVEL 305 MG/DL (<150)
[2022-01-23 22:39] LABS: PTH INTACT 80.6 PG/ML (18.5-88.0); VITAMIN B12 LEVEL 720 PG/ML (247-911)
[2022-01-23 22:40] LABS: FOLATE 18.5 NG/ML (>5.4)
== END ==
LOC: M PLALAB 09:19
DX: E66.01 Morbid (severe) obesity due to excess calories (principal)

== ENCOUNTER 2022-02-11 17:29 | Emergency (ER) | payer OTHER, MEDICAID ==
[2022-02-11 19:51] LABS: BASO % 0.2 % (0.0-1.0); EOS # 0.1 10^3/uL (0.0-0.5); EOS % 0.5 % (0.0-3.0); HEMATOCRIT 44.4 % (36.0-47.0); HEMOGLOBIN 15.1 g/dl (12.0-15.5); LYMPH # 2.4 10^3/uL (1.5-5.0); MEAN CORPUSCULAR HEMOGLOBIN 31.4 pg (27.0-33.0); MEAN CORPUSCULAR VOLUME 92.3 fl (80.0-96.0); MONO # 1.1 10^3/uL (0.0-0.8); MONO % 8.2 % (2.0-8.0); NEUTROPHILS # 9.7 10^3/uL (1.5-8.5); NEUTROPHILS % 72.8 % (36.0-66.0); PLATELET COUNT, AUTOMATED 411 10^3/uL (150-450); RED BLOOD COUNT 4.81 10^6/uL (4.00-5.40); WHITE BLOOD COUNT 13.4 10^3/uL (4.0-10.0)
[2022-02-11 20:00] LABS: INR 1.05; PROTHROMBIN TIME 14.1 SECONDS (12.7-14.5)
[2022-02-11 20:06] LABS: CK-MB VALUE MASS 3.7 NG/ML (<3.6); MB/CK RELATIVE INDEX 1.71 (< OR =4)
[2022-02-11 20:17] LABS: ALBUMIN 3.9 GM/DL (3.2-5.2); ALT/SGPT 59 U/L (12-78); BILIRUBIN,DIRECT < 0.1 MG/DL (0.0-0.2); BILIRUBIN,TOTAL 0.6 MG/DL (0.2-1.0); BLOOD UREA NITROGEN 11 MG/DL (7-18); CALCIUM LEVEL 9.3 MG/DL (8.5-10.1); CARBON DIOXIDE LEVEL 23 MEQ/L (21-32); CHLORIDE LEVEL 106 MEQ/L (98-107); CREATININE FOR GFR 1.07 MG/DL (0.55-1.30); GLOMERULAR FILTRATION RATE 59.9 (>58); GLUCOSE, FASTING 104 MG/DL (70-100); LIPASE < 10 U/L (73-393); POTASSIUM SERUM 4.6 MEQ/L (3.5-5.1); SODIUM LEVEL 136 MEQ/L (136-145); TOTAL PROTEIN 8.3 GM/DL (6.4-8.2)
[2022-02-11] MEDS ORDERED: PROMETHAZINE INJ 25 MG/ML VIAL (J2550) IV ONE ×2 (20:40→23:15)
[2022-02-11] MEDS ORDERED: NS 1,000 ML IV ONE (20:40)
[2022-02-11 22:14] VITALS: BP 145/77
[2022-02-11] MEDS ORDERED: PROMETHAZINE 25 MG TAB PO ONE (22:40)
[2022-02-11] MEDS ORDERED: PROM25TA12 PO (22:51)
[2022-02-11] MEDS ORDERED: KETOROLAC 30 MG/ML 1ML VIAL IV ONE (23:15)
[2022-02-11] MEDS ORDERED: ISOVUE-370 76% 100ML VIAL As Ordered ONE (23:38)
[2022-02-12] MEDS ORDERED: MORPHINE 4 MG/ML 1ML VIAL/SYRINGE (J2270) IV PRN (00:20)
[2022-02-13] MEDS ORDERED: NEXI40CA PO (10:25)
== END 2022-02-12 01:53 | disposition home or self-care (01) ==
LOC: M ED 17:29
DX: K52.9 Noninfective gastroenteritis and colitis, unspecified (principal); K76.0 Fatty (change of) liver, not elsewhere classified; R16.0 Hepatomegaly, not elsewhere classified; K40.90 Unilateral inguinal hernia, without obstruction or gangrene, not specified as recurrent; R73.01 Impaired fasting glucose; F41.9 Anxiety disorder, unspecified; F32.9 Major depressive disorder, single episode, unspecified; F19.10 Other psychoactive substance abuse, uncomplicated; F17.200 Nicotine dependence, unspecified, uncomplicated; Z79.899 Other long term (current) drug therapy; Z88.8 Allergy status to other drugs, medicaments and biological substances; Z88.2 Allergy status to sulfonamides; Z88.5 Allergy status to narcotic agent; Z91.040 Latex allergy status
CPT/HCPCS: 71045; 74177; 80048; 80076; 82550; 82553; 83690; 85025; 85610; 93005; 93041; 94760; 96361; 96374; 96375; 96376; 99285; J1885; J2270; Q9967

== ENCOUNTER 2022-02-13 07:14 | Emergency (ER) | payer MEDICAID, OTHER ==
[~2022-02-13] VITALS: Ht 172.7 cm; Wt 118.2 kg
[~2022-02-13 07:14] MED LIST changes: +PROM25TA12 PO
[2022-02-13] MEDS ORDERED: ONDANSETRON 4MG/2ML VIAL IV ONE (07:40)
[2022-02-13] MEDS ORDERED: NS 1,000 ML IV ONE (07:40)
[2022-02-13] MEDS: fentaNYL 100 MCG/2 ML INJECTION IV PRN ×2 (08:12→08:46)
[2022-02-13 08:23] LABS: BASO % 0.3 % (0.0-1.0); EOS # 0.1 10^3/uL (0.0-0.5); EOS % 1.2 % (0.0-3.0); HEMATOCRIT 46.2 % (36.0-47.0); HEMOGLOBIN 15.6 g/dl (12.0-15.5); LYMPH # 2.2 10^3/uL (1.5-5.0); LYMPH % 20.8 % (24.0-44.0); MEAN CORPUSCULAR HEMOGLOBIN 30.9 pg (27.0-33.0); MEAN CORPUSCULAR HGB CONC 33.8 g/dl (32.0-36.5); MEAN CORPUSCULAR VOLUME 91.5 fl (80.0-96.0); MONO # 0.8 10^3/uL (0.0-0.8); MONO % 7.5 % (2.0-8.0); NEUTROPHILS # 7.3 10^3/uL (1.5-8.5); NEUTROPHILS % 69.9 % (36.0-66.0); PLATELET COUNT, AUTOMATED 395 10^3/uL (150-450); RED BLOOD COUNT 5.05 10^6/uL (4.00-5.40); WHITE BLOOD COUNT 10.4 10^3/uL (4.0-10.0)
[2022-02-13 08:49] LABS: CK-MB VALUE MASS 1.9 NG/ML (<3.6); MB/CK RELATIVE INDEX 1.45 (< OR =4)
[2022-02-13 08:51] LABS: ALBUMIN 4.2 GM/DL (3.2-5.2); ALT/SGPT 66 U/L (12-78); AMYLASE 27 U/L (25-115); BILIRUBIN,DIRECT 0.2 MG/DL (0.0-0.2); BILIRUBIN,TOTAL 0.7 MG/DL (0.2-1.0); BLOOD UREA NITROGEN 11 MG/DL (7-18); CALCIUM LEVEL 9.1 MG/DL (8.5-10.1); CARBON DIOXIDE LEVEL 29 MEQ/L (21-32); CHLORIDE LEVEL 105 MEQ/L (98-107); CREATININE FOR GFR 1.03 MG/DL (0.55-1.30); GLOMERULAR FILTRATION RATE > 60.0 (>58); GLUCOSE, FASTING 124 MG/DL (70-100); LIPASE 55 U/L (73-393); POTASSIUM SERUM 3.8 MEQ/L (3.5-5.1); SODIUM LEVEL 142 MEQ/L (136-145); TOTAL PROTEIN 8.2 GM/DL (6.4-8.2)
[2022-02-13] MEDS ORDERED: GI COCKTAIL 50ML BTL(HYOSCYAMINE/MAALOX/LIDOCAINE VISCOUS)(1:3:1) PO ONE (09:05)
[2022-02-13] MEDS ORDERED: ISOVUE-370 76% 100ML VIAL As Ordered ONE (09:20)
[2022-02-13] MEDS ORDERED: fentaNYL 100 MCG/2 ML INJECTION IV PRN (09:55)
[2022-02-13] MEDS ORDERED: NEXI40CA PO (10:25)
[2022-02-13 10:40] VITALS: BP 146/82
== END 2022-02-13 10:53 | disposition home or self-care (01) ==
LOC: M ED 07:14
DX: R07.9 Chest pain, unspecified (principal); R10.9 Unspecified abdominal pain; E78.5 Hyperlipidemia, unspecified; F41.9 Anxiety disorder, unspecified; F32.9 Major depressive disorder, single episode, unspecified; F17.200 Nicotine dependence, unspecified, uncomplicated; Z87.442 Personal history of urinary calculi; Z87.440 Personal history of urinary (tract) infections; Z79.899 Other long term (current) drug therapy; Z88.8 Allergy status to other drugs, medicaments and biological substances; Z88.2 Allergy status to sulfonamides; Z88.5 Allergy status to narcotic agent; Z91.040 Latex allergy status
CPT/HCPCS: 36415; 71045; 71275; 74177; 80048; 80076; 81001; 82150; 82550; 82553; 83605; 83690; 85025; 87040; 93005; 93041; 96361; 96374; 96375; 96376; 99285; J2405; J3010; Q9967

== ENCOUNTER → 2022-03-28 | Outpatient (REF) | payer OTHER ==
[~2022-03-28] MED LIST changes: +NEXI40CA PO
== END ==
LOC: M SFHCDERM 17:26
PROVIDERS: ATTEND Nurse Practitioner Family
DX: D23.30 Other benign neoplasm of skin of unspecified part of face (principal)

== ENCOUNTER → 2022-06-13 | Outpatient (CLI) | payer OTHER | LOC: M WHC 15:04 | PROVIDERS: ATTEND Physician Assistant | DX: Z12.31 Encounter for screening mammogram for malignant neoplasm of breast (principal); Z80.3 Family history of malignant neoplasm of breast; Z80.0 Family history of malignant neoplasm of digestive organs ==

== ENCOUNTER → 2022-06-17 | Outpatient (REF) | LOC: M PLAIMG 12:02 | PROVIDERS: ATTEND Internal Medicine | DX: M51.37 Other intervertebral disc degeneration, lumbosacral region (principal) ==

== ENCOUNTER → 2022-06-26 | Outpatient (REF) | payer OTHER | LOC: M SFHCWAGY 13:02 | PROVIDERS: ATTEND Obstetrics & Gynecology | DX: Z12.4 Encounter for screening for malignant neoplasm of cervix (principal); Z77.9 Other contact with and (suspected) exposures hazardous to health ==

== ENCOUNTER → 2022-06-27 | Outpatient (REF) | payer OTHER, MEDICAID | LOC: M LAB REF 15:55 | PROVIDERS: ATTEND Surgery | DX: L72.3 Sebaceous cyst (principal) ==

== ENCOUNTER → 2022-12-30 | Outpatient (CLI) | payer OTHER ==
[2022-12-30 14:56] LABS: BASO % 0.3 % (0.0-1.0); EOS # 0.3 10^3/uL (0.0-0.5); EOS % 3.3 % (0.0-3.0); HEMATOCRIT 43.4 % (36.0-47.0); HEMOGLOBIN 14.2 g/dl (12.0-15.5); LYMPH % 38.5 % (24.0-44.0); MEAN CORPUSCULAR HGB CONC 32.7 g/dl (32.0-36.5); MEAN CORPUSCULAR VOLUME 94.8 fl (80.0-96.0); MONO # 0.7 10^3/uL (0.0-0.8); MONO % 8.3 % (2.0-8.0); NEUTROPHILS # 3.9 10^3/uL (1.5-8.5); NEUTROPHILS % 49.2 % (36.0-66.0); PLATELET COUNT, AUTOMATED 303 10^3/uL (150-450); RED BLOOD COUNT 4.58 10^6/uL (4.00-5.40); WHITE BLOOD COUNT 7.9 10^3/uL (4.0-10.0)
[2022-12-30 15:00] LABS: ALBUMIN 3.5 G/DL (3.2-5.2); ALKALINE PHOSPHATASE 78 U/L (46-116); ALT/SGPT 36 U/L (7.0-40); AST/SGOT 34 U/L (<34); BILIRUBIN,TOTAL 0.4 MG/DL (0.3-1.2); BLOOD UREA NITROGEN 12 MG/DL (9-23); CALCIUM LEVEL 9.3 MG/DL (8.5-10.1); CARBON DIOXIDE LEVEL 23 MMOL/L (20-31); CHLORIDE LEVEL 104 MMOL/L (98-107); CHOLESTEROL LEVEL 219 MG/DL (<200); CHOLESTEROL RISK RATIO 5.48 (<5); CREATININE FOR GFR 0.95 MG/DL (0.55-1.30); GLOMERULAR FILTRATION RATE > 60.0 (>58); GLUCOSE, FASTING 114 MG/DL (60-100); HDL CHOLESTEROL 39.9 MG/DL (>40); IRON (FE) 94 UG/DL (50-170); NON-HDL-C 179 MG/DL; PERCENT SATURATION 22.9 % (13.2-45.0); POTASSIUM SERUM 3.9 MMOL/L (3.5-5.1); SODIUM LEVEL 139 MMOL/L (136-145); TOTAL IRON BINDING CAPACITY 410 UG/DL (250-425); TOTAL PROTEIN 6.8 G/DL (5.7-8.2); TRIGLYCERIDES LEVEL 471 MG/DL (<150)
[2022-12-30 15:01] LABS: FERRITIN 36.7 NG/ML (7.3-270.7); THYROID STIMULATING HORMONE 0.937 uIU/ML (0.55-4.78)
[2022-12-30 15:02] LABS: TOTAL 25(OH) VITAMIN D 15.8 NG/ML (20.0-100.0); VITAMIN B12 LEVEL 452 PG/ML (211-911)
[2022-12-30 15:03] LABS: HEMOGLOBIN A1c 5.3 % (4.0-6.0)
[2022-12-30 15:10] LABS: FOLATE 16.09 NG/ML (>5.4)
== END ==
LOC: M PLALAB 09:49
PROVIDERS: ATTEND Registered Nurse
DX: E66.01 Morbid (severe) obesity due to excess calories (principal); I10 Essential (primary) hypertension; E11.9 Type 2 diabetes mellitus without complications; F17.200 Nicotine dependence, unspecified, uncomplicated
CPT/HCPCS: 36415; 80053; 80061; 82306; 82607; 82728; 82746; 83036; 83550; 84425; 84443; 85025; G0480

== ENCOUNTER → 2023-02-17 | Outpatient (REF) | payer OTHER, MEDICAID | LOC: M LAB REF 13:19 | PROVIDERS: ATTEND Registered Nurse | DX: K21.9 Gastro-esophageal reflux disease without esophagitis (principal); E66.01 Morbid (severe) obesity due to excess calories; Z68.41 Body mass index [BMI] 40.0-44.9, adult; Z87.891 Personal history of nicotine dependence ==

== ENCOUNTER → 2023-07-02 | Outpatient (CLI) | payer OTHER | LOC: M WHC 13:30 | PROVIDERS: ATTEND Physician Assistant | DX: Z12.31 Encounter for screening mammogram for malignant neoplasm of breast (principal) ==

== ENCOUNTER → 2023-09-22 | Outpatient (CLI) | payer OTHER ==
[2023-09-22 18:26] LABS: BASO % 0.3 % (0.0-1.0); EOS # 0.3 10^3/uL (0.0-0.5); EOS % 4.9 % (0.0-3.0); HEMATOCRIT 42.1 % (36.0-47.0); HEMOGLOBIN 14.4 g/dl (12.0-15.5); LYMPH # 2.1 10^3/uL (1.5-5.0); LYMPH % 32.5 % (24.0-44.0); MEAN CORPUSCULAR HEMOGLOBIN 31.7 pg (27.0-33.0); MEAN CORPUSCULAR HGB CONC 34.2 g/dl (32.0-36.5); MEAN CORPUSCULAR VOLUME 92.7 fl (80.0-96.0); MONO # 0.8 10^3/uL (0.0-0.8); MONO % 11.5 % (2.0-8.0); NEUTROPHILS # 3.3 10^3/uL (1.5-8.5); NEUTROPHILS % 50.5 % (36.0-66.0); PLATELET COUNT, AUTOMATED 257 10^3/uL (150-450); RED BLOOD COUNT 4.54 10^6/uL (4.00-5.40); WHITE BLOOD COUNT 6.5 10^3/uL (4.0-10.0)
[2023-09-23 02:17] LABS: IRON (FE) 67 UG/DL (50-170)
[2023-09-23 02:19] LABS: PERCENT SATURATION 18.7 % (13.2-45.0); TOTAL IRON BINDING CAPACITY 359 UG/DL (250-425)
[2023-09-23 03:59] LABS: ALBUMIN 3.8 G/DL (3.2-5.2); ALKALINE PHOSPHATASE 73 U/L (46-116); ALT/SGPT 18 U/L (7.0-40); AST/SGOT 15 U/L (<34); BILIRUBIN,TOTAL 0.4 MG/DL (0.3-1.2); BLOOD UREA NITROGEN 12 MG/DL (9-23); CALCIUM LEVEL 9.5 MG/DL (8.5-10.1); CARBON DIOXIDE LEVEL 24 MMOL/L (20-31); CHLORIDE LEVEL 105 MMOL/L (98-107); CHOLESTEROL LEVEL 174 MG/DL (<200); CHOLESTEROL RISK RATIO 5.97 (<5); CREATININE FOR GFR 0.72 MG/DL (0.55-1.30); GLOMERULAR FILTRATION RATE > 60.0 (>58); GLUCOSE, FASTING 88 MG/DL (60-100); HDL CHOLESTEROL 29.1 MG/DL (>40); LDL CHOLESTEROL 121.7 MG/DL (<100); NON-HDL-C 144.9 MG/DL; POTASSIUM SERUM 3.9 MMOL/L (3.5-5.1); SODIUM LEVEL 138 MMOL/L (136-145); TOTAL 25(OH) VITAMIN D 94.8 NG/ML (20.0-100.0); TOTAL PROTEIN 6.7 G/DL (5.7-8.2); TRIGLYCERIDES LEVEL 116 MG/DL (<150); VITAMIN B12 LEVEL 1264 PG/ML (211-911)
== END ==
LOC: M PLALAB 15:08
PROVIDERS: ATTEND Surgery
DX: Z98.84 Bariatric surgery status (principal)

== ENCOUNTER → 2023-11-18 | Outpatient (REF) | payer OTHER ==
[~2023-11-18] MED LIST changes: -EFFE150C2 PO; +EFFE150C3 PO
== END ==
LOC: M SFHCDERM 09:57
PROVIDERS: ATTEND Nurse Practitioner Family
DX: L02.93 Carbuncle, unspecified (principal)

== ENCOUNTER 2024-02-09 18:08 | Emergency (ER) | payer MEDICAID, OTHER ==
[~2024-02-09] VITALS: Ht 172.7 cm; Wt 66.8 kg
[2024-02-09 19:09] LABS: VENOUS BASE EXCESS 4.1 (-2.0-2.0); VENOUS HCO3 30.7 MMOL/L (23.0-27.0); VENOUS PARTIAL PRESSURE CO2 53.3 mmHg (38.0-50.0); VENOUS PARTIAL PRESSURE O2 38.9 mmHg (30.0-50.0); VENOUS PH 7.378 UNITS (7.330-7.430); VENOUS STANDARD HCO3 27.6 MMOL/L; VENOUS TOTAL CO2 32.3 MMOL/L (24.0-28.0)
[2024-02-09 19:16] LABS: BASO # 0.1 10^3/uL (0.0-0.2); BASO % 0.7 % (0.0-1.0); EOS # 0.4 10^3/uL (0.0-0.5); EOS % 4.7 % (0.0-3.0); HEMATOCRIT 39.3 % (36.0-47.0); HEMOGLOBIN 13.3 g/dl (12.0-15.5); LYMPH # 3.7 10^3/uL (1.5-5.0); LYMPH % 49.6 % (24.0-44.0); MEAN CORPUSCULAR HEMOGLOBIN 32.3 pg (27.0-33.0); MEAN CORPUSCULAR HGB CONC 33.8 g/dl (32.0-36.5); MEAN CORPUSCULAR VOLUME 95.4 fl (80.0-96.0); MONO # 0.7 10^3/uL (0.0-0.8); MONO % 9.1 % (2.0-8.0); NEUTROPHILS # 2.7 10^3/uL (1.5-8.5); NEUTROPHILS % 35.6 % (36.0-66.0); PLATELET COUNT, AUTOMATED 302 10^3/uL (150-450); RED BLOOD COUNT 4.12 10^6/uL (4.00-5.40); WHITE BLOOD COUNT 7.4 10^3/uL (4.0-10.0)
[2024-02-09 19:23] LABS: ETHYL ALCOHOL (ETHANOL) 0.004 % (0.000-0.010); LIPASE 22 U/L (12-53)
[2024-02-09 19:25] LABS: C REACTIVE PROTEIN QUANTITATIV < 0.40 MG/DL (<1.0); SALICYLATE LEVEL < 3.0 MG/DL (<30)
[2024-02-09 19:26] LABS: ALBUMIN 3.9 G/DL (3.2-5.2); ALKALINE PHOSPHATASE 76 U/L (46-116); ALT/SGPT 25 U/L (7.0-40); AST/SGOT 17 U/L (<34); BILIRUBIN,DIRECT < 0.1 MG/DL (<0.4); BILIRUBIN,TOTAL 0.3 MG/DL (0.3-1.2); BLOOD UREA NITROGEN 19 MG/DL (9-23); CALCIUM LEVEL 9.2 MG/DL (8.5-10.1); CARBON DIOXIDE LEVEL 30 MMOL/L (20-31); CHLORIDE LEVEL 106 MMOL/L (98-107); CK-MB VALUE MASS 1.9 NG/ML (<3.6); CPK CREATINE PHOSPHOKINASE 128 U/L (34-145); CREATININE FOR GFR 0.79 MG/DL (0.55-1.30); GLOMERULAR FILTRATION RATE > 60.0 (>58); GLUCOSE, FASTING 77 MG/DL (60-100); MB/CK RELATIVE INDEX 1.48 (< OR =4); POTASSIUM SERUM 4.3 MMOL/L (3.5-5.1); SODIUM LEVEL 140 MMOL/L (136-145); TOTAL PROTEIN 6.7 G/DL (5.7-8.2)
[2024-02-09 19:27] LABS: THYROID STIMULATING HORMONE 0.536 uIU/ML (0.55-4.78)
[2024-02-09 19:28] LABS: FREE T3 3.5 PG/ML (2.3-4.2)
[2024-02-09 20:16] LABS: HCG, SERUM QUALITATIVE NEGATIVE (NEGATIVE)
[2024-02-09] MEDS ORDERED: ISOVUE-370 76% 100ML VIAL As Ordered ONE (20:47)
[2024-02-09] MEDS: MULTIVITAMIN -ADULT INJECTION 10 ML, THIAMINE INJection 100 MG, FOLIC ACID 1 MG in NS 1... IV ONE (21:15)
[2024-02-09] MEDS ORDERED: NS 1,000 ML IV ONE (21:40)
[2024-02-09] MEDS: SENOKOT S TAB PO ONE (21:57)
[2024-02-09] MEDS: MIRALAX *UNIT DOSE* 17GM PACKET PO ONE (21:57)
[2024-02-09 22:02] VITALS: BP 124/74; TEMP 98.8; O2SAT 98
== END 2024-02-09 22:07 | disposition left against medical advice (07) ==
LOC: M ED 18:08
DX: F19.94 Other psychoactive substance use, unspecified with psychoactive substance-induced mood disorder (principal); K59.00 Constipation, unspecified; E78.5 Hyperlipidemia, unspecified; F41.9 Anxiety disorder, unspecified; Z88.1 Allergy status to other antibiotic agents; Z88.2 Allergy status to sulfonamides; Z88.5 Allergy status to narcotic agent; Z88.8 Allergy status to other drugs, medicaments and biological substances; Z91.040 Latex allergy status; Z79.899 Other long term (current) drug therapy; Z53.9 Procedure and treatment not carried out, unspecified reason
CPT/HCPCS: 70450; 74177; 80048; 80076; 80143; 82077; 82140; 82550; 82553; 82803; 83605; 83690; 83930; 84443; 84481; 84702; 84703; 85025; 86140; 87040; 93005; 93041; 94760; 96365; 99284; J3411; Q9967

== ENCOUNTER 2024-04-27 04:27 | Emergency (ER) | payer MEDICAID, OTHER ==
[~2024-04-27] VITALS: Ht 172.7 cm; Wt 61.5 kg
[~2024-04-27 04:27] MED LIST changes: +ONDA-282 PO; -ONDA4TAB6 PO
[2024-04-27 06:10] LABS: URINE PREG TEST NEGATIVE (NEGATIVE)
[2024-04-27 06:30] LABS: AMPHETAMINES LEVEL URINE NEGATIVE (NEGATIVE); BARBITURATES URINE NEGATIVE (NEGATIVE); COCAINE METABOLITE URINE NEGATIVE (NEGATIVE); METHADONE URINE NEGATIVE (NEGATIVE); OPIATES URINE NEGATIVE (NEGATIVE); PHENCYCLIDINE URINE NEGATIVE (NEGATIVE)
[2024-04-27] MEDS: ACETAMINOPHEN TAB 650MG DOSE (2X325MG) PO ONE (06:33)
[2024-04-27] MEDS: cloNIDine 0.1MG TABLET PO ONE (06:33)
[2024-04-27] MEDS: ONDANSETRON 4MG ORAL DISINTEGRATING TAB PO ONE (06:34)
[2024-04-27 06:35] LABS: BENZODIAZEPINES URINE POSITIVE (NEGATIVE); CANNABINOIDS URINE POSITIVE (NEGATIVE)
[2024-04-27] MEDS: NS 1,000 ML IV ONE (07:48)
[2024-04-27] MEDS: KETOROLAC 30 MG/ML 1ML VIAL IV ONE (07:49)
[2024-04-27 07:50] LABS: BASO % 0.2 % (0.0-1.0); EOS % 0.2 % (0.0-3.0); HEMATOCRIT 43.3 % (36.0-47.0); HEMOGLOBIN 15.4 g/dl (12.0-15.5); LYMPH # 1.7 10^3/uL (1.5-5.0); LYMPH % 14.4 % (24.0-44.0); MEAN CORPUSCULAR HEMOGLOBIN 32.8 pg (27.0-33.0); MEAN CORPUSCULAR HGB CONC 35.6 g/dl (32.0-36.5); MEAN CORPUSCULAR VOLUME 92.1 fl (80.0-96.0); MONO # 0.4 10^3/uL (0.0-0.8); MONO % 3.6 % (2.0-8.0); NEUTROPHILS # 9.5 10^3/uL (1.5-8.5); NEUTROPHILS % 81.1 % (36.0-66.0); PLATELET COUNT, AUTOMATED 370 10^3/uL (150-450); WHITE BLOOD COUNT 11.7 10^3/uL (4.0-10.0)
[2024-04-27 08:15] LABS: BLOOD UREA NITROGEN 14 MG/DL (9-23); CALCIUM LEVEL 9.8 MG/DL (8.5-10.1); CARBON DIOXIDE LEVEL 26 MMOL/L (20-31); CHLORIDE LEVEL 107 MMOL/L (98-107); CREATININE FOR GFR 0.74 MG/DL (0.55-1.30); GLOMERULAR FILTRATION RATE > 60.0 (>58); GLUCOSE, FASTING 142 MG/DL (60-100); POTASSIUM SERUM 3.9 MMOL/L (3.5-5.1); SODIUM LEVEL 141 MMOL/L (136-145)
[2024-04-27 08:21] LABS: APPEARANCE, URINE HAZY (CLEAR); BACTERIA, URINE AUTO 1+ (NEGATIVE); BILIRUBIN, URINE AUTO NEGATIVE (NEGATIVE); BLOOD, URINE BLOOD NEGATIVE (NEGATIVE); COLOR, URINE AMBER (YELLOW); GLUCOSE, URINE (UA) AUTO NEGATIVE (NEGATIVE); KETONE, URINE AUTO TRACE mg/dL (NEGATIVE); LEUKOCYTE ESTERASE, URINE AUTO NEGATIVE (NEGATIVE); MUCUS, URINE SMALL (NEGATIVE); NITRITE, URINE AUTO NEGATIVE (NEGATIVE); PROTEIN, URINE AUTO 1+ mg/dL (NEGATIVE); RBC, URINE AUTO 1 /HPF (0-3); SPECIFIC GRAVITY URINE AUTO 1.028 (1.002-1.035); SQUAMOUS EPITHELIAL CELL UR AU 6 /HPF (0-6); WBC, URINE AUTO 5 /HPF (0-3)
[2024-04-27] MEDS: BUPRENORPHINE/NALOXONE 8-2MG SUBLINGUAL TABLET(SUBOXONE) SL ONE (09:10)
[2024-04-27] MEDS: ONDANSETRON 4MG 2ML VIAL IV ONE (09:10)
[2024-04-27 09:36] VITALS: BP 137/78; TEMP 98.2; O2SAT 100
== END 2024-04-27 09:52 | disposition home or self-care (01) ==
LOC: M ED 04:27
DX: F11.23 Opioid dependence with withdrawal (principal); K21.9 Gastro-esophageal reflux disease without esophagitis; Z88.1 Allergy status to other antibiotic agents; Z88.2 Allergy status to sulfonamides; Z88.8 Allergy status to other drugs, medicaments and biological substances; Z91.040 Latex allergy status; F17.200 Nicotine dependence, unspecified, uncomplicated
CPT/HCPCS: 80048; 80307; 81001; 84703; 85025; 87086; 96361; 96374; 96375; 99284; J1885; J2405

== ENCOUNTER 2024-04-28 15:56 | Emergency (ER) | payer OTHER ==
[~2024-04-28] VITALS: Ht 172.7 cm; Wt 61.2 kg
[2024-04-28 15:56] VITALS: BP 137/80; TEMP 99.6; O2SAT 100
[~2024-04-28 15:56] MED LIST changes: -ONDA-282 PO; +ONDA4TAB6 PO
[2024-04-28] MEDS: BUPRENORPHINE HCL 8MG SUBINGUAL TABLET SL STA (16:50)
== END 2024-04-28 16:53 | disposition home or self-care (01) ==
LOC: M ED 15:56
DX: F11.13 Opioid abuse with withdrawal (principal); E78.5 Hyperlipidemia, unspecified; F17.200 Nicotine dependence, unspecified, uncomplicated; Z79.899 Other long term (current) drug therapy; Z88.2 Allergy status to sulfonamides; Z88.5 Allergy status to narcotic agent; Z88.8 Allergy status to other drugs, medicaments and biological substances; Z91.040 Latex allergy status

== ENCOUNTER 2024-05-05 20:40 | Emergency (ER) | payer OTHER ==
[~2024-05-05] VITALS: Ht 172.7 cm; Wt 60.0 kg
[~2024-05-05 20:40] MED LIST changes: +ONDA-282 PO; -ONDA4TAB6 PO
[2024-05-05 20:44] VITALS: BP 162/85; TEMP 98.6; O2SAT 98
== END 2024-05-06 00:45 | disposition left against medical advice (07) ==
LOC: M ED 20:40
DX: Z53.21 Procedure and treatment not carried out due to patient leaving prior to being seen by health care provider (principal)

== ENCOUNTER 2024-05-27 17:34 | Emergency (ER) | payer MEDICAID, OTHER ==
[~2024-05-27] VITALS: Ht 172.7 cm; Wt 59.8 kg
[2024-05-27 17:36] VITALS: BP 126/87; TEMP 98.3; O2SAT 99
[2024-05-27] MEDS: BUPRENORPHINE HCL 8MG SUBINGUAL TABLET SL ONE (18:23)
== END 2024-05-27 18:34 | disposition home or self-care (01) ==
LOC: M ED 17:34
DX: Z76.0 Encounter for issue of repeat prescription (principal); F19.10 Other psychoactive substance abuse, uncomplicated; K21.9 Gastro-esophageal reflux disease without esophagitis; Z87.19 Personal history of other diseases of the digestive system; Z87.442 Personal history of urinary calculi; F17.200 Nicotine dependence, unspecified, uncomplicated; Z79.899 Other long term (current) drug therapy; Z88.2 Allergy status to sulfonamides; Z88.5 Allergy status to narcotic agent; Z88.8 Allergy status to other drugs, medicaments and biological substances; Z91.040 Latex allergy status

== ENCOUNTER 2024-08-20 12:16 | Emergency (ER) | payer MEDICAID, OTHER ==
[~2024-08-20] VITALS: Ht 172.7 cm; Wt 61.9 kg
[2024-08-20 14:36] VITALS: BP 159/91; TEMP 98; O2SAT 100
[2024-08-20] MEDS ORDERED: BUPRENORPHINE/NALOXONE 8-2MG SUBLINGUAL TABLET(SUBOXONE) SL ONE (14:40)
[2024-08-20] MEDS: BUPRENORPHINE HCL 8MG SUBINGUAL TABLET SL ONE (14:51)
== END 2024-08-20 14:56 | disposition home or self-care (01) ==
LOC: M ED 12:16
DX: F11.20 Opioid dependence, uncomplicated (principal); E78.5 Hyperlipidemia, unspecified; E78.00 Pure hypercholesterolemia, unspecified; Z87.19 Personal history of other diseases of the digestive system; Z98.84 Bariatric surgery status; Z87.442 Personal history of urinary calculi; Z87.440 Personal history of urinary (tract) infections; F41.9 Anxiety disorder, unspecified; F32.A Depression, unspecified; Z79.899 Other long term (current) drug therapy; Z88.2 Allergy status to sulfonamides; Z88.5 Allergy status to narcotic agent; Z88.8 Allergy status to other drugs, medicaments and biological substances; Z91.040 Latex allergy status

== ENCOUNTER 2024-09-13 14:07 | Inpatient (IN) | payer OTHER ==
[~2024-09-13] VITALS: Ht 172.7 cm; Wt 65.2 kg
[~2024-09-13 14:07] MED LIST changes: -DESV100T3; +DESV100T3 PO; +GABA-1172 PO; -GABA-282 PO
[2024-09-13] MEDS: NS 1,000 ML IV ONE ×2 (14:43→21:35)
[2024-09-13] MEDS ORDERED: ISOVUE-370 76% 100ML VIAL As Ordered ONE (14:56)
[2024-09-13 15:10] LABS: VENOUS BASE EXCESS 0.2 (-2.0-2.0); VENOUS O2 SATURATION 97.9 % (60.0-80.0); VENOUS PARTIAL PRESSURE CO2 32.4 mmHg (38.0-50.0); VENOUS PARTIAL PRESSURE O2 109.5 mmHg (30.0-50.0); VENOUS PH 7.469 UNITS (7.330-7.430); VENOUS STANDARD HCO3 24.7 MMOL/L
[2024-09-13 15:17] LABS: BASO % 0.2 % (0.0-1.0); EOS % 0.3 % (0.0-3.0); HEMATOCRIT 43.1 % (36.0-47.0); HEMOGLOBIN 14.8 g/dl (12.0-15.5); LYMPH # 1.5 10^3/uL (1.5-5.0); LYMPH % 17.1 % (24.0-44.0); MEAN CORPUSCULAR HEMOGLOBIN 31.2 pg (27.0-33.0); MEAN CORPUSCULAR HGB CONC 34.3 g/dl (32.0-36.5); MEAN CORPUSCULAR VOLUME 90.9 fl (80.0-96.0); MONO # 0.6 10^3/uL (0.0-0.8); MONO % 6.9 % (2.0-8.0); NEUTROPHILS # 6.7 10^3/uL (1.5-8.5); NEUTROPHILS % 75.3 % (36.0-66.0); PLATELET COUNT, AUTOMATED 307 10^3/uL (150-450); RED BLOOD COUNT 4.74 10^6/uL (4.00-5.40); WHITE BLOOD COUNT 8.9 10^3/uL (4.0-10.0)
[2024-09-13 15:35] LABS: CK-MB VALUE MASS 1.4 NG/ML (<3.6)
[2024-09-13 15:36] LABS: ETHYL ALCOHOL (ETHANOL) < 0.003 % (0.000-0.010)
[2024-09-13 15:37] LABS: CPK CREATINE PHOSPHOKINASE 156 U/L (34-145); MB/CK RELATIVE INDEX 0.89 (< OR =4)
[2024-09-13 15:38] LABS: ALBUMIN 3.6 G/DL (3.2-5.2); ALKALINE PHOSPHATASE 71 U/L (46-116); ALT/SGPT 18 U/L (7.0-40); AST/SGOT 13 U/L (<34); BILIRUBIN,DIRECT 0.1 MG/DL (<0.4); BILIRUBIN,TOTAL 0.5 MG/DL (0.3-1.2); BLOOD UREA NITROGEN 17 MG/DL (9-23); CALCIUM LEVEL 9.9 MG/DL (8.5-10.1); CARBON DIOXIDE LEVEL 27 MMOL/L (20-31); CHLORIDE LEVEL 106 MMOL/L (98-107); CREATININE FOR GFR 0.63 MG/DL (0.55-1.30); GLOMERULAR FILTRATION RATE > 60.0 (>58); GLUCOSE, FASTING 133 MG/DL (60-100); SALICYLATE LEVEL < 3.0 MG/DL (<30); SODIUM LEVEL 139 MMOL/L (136-145); TOTAL PROTEIN 6.6 G/DL (5.7-8.2)
[2024-09-13 15:39] LABS: THYROID STIMULATING HORMONE 0.136 uIU/ML (0.55-4.78)
[2024-09-13] MEDS: LIDOCAINE 2% 5ML JELLY UROJET TOP ONE (16:17)
[2024-09-13 16:29] LABS: INR 1.14; PARTIAL THROMBOPLASTIN TIME 25.9 SECONDS (24.8-34.2); PROTHROMBIN TIME 14.2 SECONDS (12.5-14.5)
[2024-09-13 16:36] LABS: AMPHETAMINES LEVEL URINE NEGATIVE (NEGATIVE); BARBITURATES URINE NEGATIVE (NEGATIVE); BENZODIAZEPINES URINE NEGATIVE (NEGATIVE); COCAINE METABOLITE URINE NEGATIVE (NEGATIVE)
[2024-09-13 16:37] LABS: CANNABINOIDS URINE NEGATIVE (NEGATIVE); METHADONE URINE NEGATIVE (NEGATIVE); OPIATES URINE NEGATIVE (NEGATIVE); PHENCYCLIDINE URINE NEGATIVE (NEGATIVE)
[2024-09-13 16:39] LABS: CK-MB VALUE MASS < 1.0 NG/ML (<3.6)
[2024-09-13 16:46] LABS: CPK CREATINE PHOSPHOKINASE 104 U/L (34-145); MB/CK RELATIVE INDEX 0.96 (< OR =4)
[2024-09-13] MEDS: MEROPENEM INJ 1 GM in IV 1 EA IV ONE (17:18)
[2024-09-13] MEDS ORDERED: BUPR8SUB SL (17:32)
[2024-09-13] MEDS ORDERED: ALPR1TAB3 PO (17:32)
[2024-09-13] MEDS ORDERED: GABA-284 PO (17:32)
[2024-09-13] MEDS ORDERED: HOME MED LIST COMPLETE! XX SCH (17:35)
[2024-09-13] MEDS ORDERED: HALOPERIDOL LACTATE 5MG/ML VIAL IV PRN (17:45)
[2024-09-13] MEDS ORDERED: ALPRAZolam 0.5 MG TAB PO SCH (21:00)
[2024-09-13] MEDS ORDERED: GABAPENTIN 400MG CAP PO SCH (21:00)
[2024-09-13] MEDS: LORazepam 2 MG/ML 1ML VIAL IV ONE (21:38)
[2024-09-13] MEDS: GABAPENTIN 300 MG CAP PO SCH (21:38)
[2024-09-13] MEDS: BUPRENORPHINE HCL 8MG SUBINGUAL TABLET SL SCH (21:39)
[2024-09-13] MEDS: ALPRAZolam 0.5 MG TAB PO SCH (21:39)
[2024-09-13 22:04] VITALS: BP 110/77; TEMP 99; O2SAT 100
[2024-09-14] MEDS: LORazepam 2 MG/ML 1ML VIAL IV PRN (00:49)
[2024-09-14] MEDS: cefTRIAXone SOD 2 GM in DEXTROSE 5% (D5W) MINI-BAG/ADV 50 ML IV SCH (00:50)
[2024-09-14] MEDS ORDERED: ACETAMINOPHEN 325 MG TAB PO PRN (03:40)
[2024-09-14 04:00] VITALS: BP 100/69; TEMP 98.8; O2SAT 99
[2024-09-14 05:36] VITALS: BP 98/70; TEMP 99; O2SAT 100
[2024-09-14 06:24] LABS: BASO % 0.1 % (0.0-1.0); EOS # 0.1 10^3/uL (0.0-0.5); EOS % 1.3 % (0.0-3.0); LYMPH # 3.2 10^3/uL (1.5-5.0); LYMPH % 34.6 % (24.0-44.0); MEAN CORPUSCULAR HGB CONC 33.8 g/dl (32.0-36.5); MEAN CORPUSCULAR VOLUME 91.7 fl (80.0-96.0); MONO # 0.8 10^3/uL (0.0-0.8); MONO % 9.1 % (2.0-8.0); NEUTROPHILS % 54.5 % (36.0-66.0); PLATELET COUNT, AUTOMATED 254 10^3/uL (150-450); RED BLOOD COUNT 3.39 10^6/uL (4.00-5.40); WHITE BLOOD COUNT 9.1 10^3/uL (4.0-10.0)
[2024-09-14 06:34] LABS: HEMATOCRIT 31.1 % (36.0-47.0); HEMOGLOBIN 10.5 g/dl (12.0-15.5)
[2024-09-14 06:55] LABS: BLOOD UREA NITROGEN 20 MG/DL (9-23); CALCIUM LEVEL 8.6 MG/DL (8.5-10.1); CARBON DIOXIDE LEVEL 26 MMOL/L (20-31); CHLORIDE LEVEL 111 MMOL/L (98-107); GLOMERULAR FILTRATION RATE > 60.0 (>58); GLUCOSE, FASTING 149 MG/DL (60-100); SODIUM LEVEL 140 MMOL/L (136-145); THYROID STIMULATING HORMONE 0.166 uIU/ML (0.55-4.78); VITAMIN B12 LEVEL 1031 PG/ML (211-911)
[2024-09-14] MEDS: SUCRALFATE SUSP 1GM/10ML UD PO SCH (07:30)
[2024-09-14 08:04] LABS: HEMATOCRIT 28.6 % (36.0-47.0); HEMOGLOBIN 9.8 g/dl (12.0-15.5); MEAN CORPUSCULAR HEMOGLOBIN 31.3 pg (27.0-33.0); MEAN CORPUSCULAR HGB CONC 34.3 g/dl (32.0-36.5); MEAN CORPUSCULAR VOLUME 91.4 fl (80.0-96.0); PLATELET COUNT, AUTOMATED 261 10^3/uL (150-450); RED BLOOD COUNT 3.13 10^6/uL (4.00-5.40); WHITE BLOOD COUNT 9.6 10^3/uL (4.0-10.0)
[2024-09-14 08:29] VITALS: BP 91/66; TEMP 100.9; O2SAT 99
[2024-09-14] MEDS ORDERED: MORPHINE 2 MG/ML 1ML VIAL IV PRN (08:35)
[2024-09-14] MEDS: PANTOPRAZOLE 40MG VIAL IV SCH (08:37)
[2024-09-14] MEDS ORDERED: PANTOPRAZOLE 40MG VIAL IV ONE (08:50)
[2024-09-14] MEDS: NS 1,000 ML IV ONE ×2 (08:54→10:58)
[2024-09-14] MEDS ORDERED: ENOXAPARIN 40MG/0.4ML SYRINGE (J1650 PER 10MG) SC SCH (09:00)
[2024-09-14] MEDS: PANTOPRAZOLE SODIUM 40 MG in D5W 50 ML IV SCH (10:01)
[2024-09-14 10:02] VITALS: BP 98/72; TEMP 99.6
[2024-09-14] MEDS: OCTREOTIDE ACETATE 100MCG/ML VIAL **SC ADMINISTRATION ONLY SC SCH (10:14)
[2024-09-14] MEDS: ACETAMINOPHEN *IV* 1,000 MG in IV 1 EA IV PRN (10:58)
[2024-09-14 12:02] VITALS: BP 100/68; TEMP 98.5; O2SAT 98
[2024-09-14 12:23] LABS: HEMATOCRIT 26.5 % (36.0-47.0); HEMOGLOBIN 9.1 g/dl (12.0-15.5)
[2024-09-14] MEDS: OCTREOTIDE ACETATE 100MCG/ML VIAL **IV ADMINISTRATION ONLY IV SCH (18:01)
[2024-09-14 19:13] LABS: HEMATOCRIT 25.8 % (36.0-47.0); HEMOGLOBIN 8.7 g/dl (12.0-15.5)
[2024-09-14] MEDS: ONDANSETRON 4MG 2ML VIAL IV PRN (19:55)
[2024-09-14 19:59] VITALS: BP 118/79; TEMP 98.8; O2SAT 100
[2024-09-14] MEDS: diphenhydrAMINE 25MG CAP PO PRN (20:38)
[2024-09-15] VITALS (8 sets, daily range): BP systolic 87–112; BP diastolic 57–67; TEMP 98.2–99; O2SAT 98–100
[2024-09-15 00:24] LABS: HEMOGLOBIN 8.5 g/dl (12.0-15.5)
[2024-09-15] MEDS ORDERED: NS 500 ML IV ONE (04:55)
[2024-09-15] MEDS: NS 500 ML IV ONE (04:58)
[2024-09-15 05:59] LABS: BASO % 0.4 % (0.0-1.0); EOS # 0.3 10^3/uL (0.0-0.5); EOS % 3.6 % (0.0-3.0); HEMATOCRIT 24.4 % (36.0-47.0); HEMOGLOBIN 7.9 g/dl (12.0-15.5); LYMPH # 3.2 10^3/uL (1.5-5.0); LYMPH % 45.6 % (24.0-44.0); MEAN CORPUSCULAR HEMOGLOBIN 31.9 pg (27.0-33.0); MEAN CORPUSCULAR HGB CONC 32.4 g/dl (32.0-36.5); MEAN CORPUSCULAR VOLUME 98.4 fl (80.0-96.0); MONO # 0.6 10^3/uL (0.0-0.8); MONO % 8.7 % (2.0-8.0); NEUTROPHILS # 2.9 10^3/uL (1.5-8.5); NEUTROPHILS % 41.4 % (36.0-66.0); PLATELET COUNT, AUTOMATED 177 10^3/uL (150-450); RED BLOOD COUNT 2.48 10^6/uL (4.00-5.40)
[2024-09-15 06:22] LABS: ALBUMIN 2.6 G/DL (3.2-5.2); ALKALINE PHOSPHATASE 41 U/L (46-116); ALT/SGPT 12 U/L (7.0-40); AST/SGOT 9 U/L (<34); BILIRUBIN,DIRECT < 0.1 MG/DL (<0.4); BILIRUBIN,TOTAL 0.3 MG/DL (0.3-1.2); BLOOD UREA NITROGEN 11 MG/DL (9-23); CALCIUM LEVEL 8.3 MG/DL (8.5-10.1); CARBON DIOXIDE LEVEL 26 MMOL/L (20-31); CHLORIDE LEVEL 112 MMOL/L (98-107); CREATININE FOR GFR 0.76 MG/DL (0.55-1.30); GLOMERULAR FILTRATION RATE > 60.0 (>58); GLUCOSE, FASTING 112 MG/DL (60-100); POTASSIUM SERUM 3.8 MMOL/L (3.5-5.1); SODIUM LEVEL 142 MMOL/L (136-145); TOTAL PROTEIN 4.8 G/DL (5.7-8.2)
[2024-09-15 11:44] LABS: PROCALCITONIN <0.04 ng/ml
[2024-09-15] MEDS: DESVENLAFAXINE ER 50MG TABLET (PRISTIQ) PO SCH (13:54)
[2024-09-15] MEDS: NICOTINE 14 MG/24 HR TRANSDERMAL TD SCH (13:55)
[2024-09-15] MEDS: ALPRAZolam 0.5 MG TAB PO PRN (14:44)
[2024-09-15 16:03] LABS: HEMATOCRIT 29.6 % (36.0-47.0); HEMOGLOBIN 9.8 g/dl (12.0-15.5)
[2024-09-15] MEDS: MIRALAX *UNIT DOSE* 17GM PACKET PO SCH (16:23)
[2024-09-15] MEDS: MOM 30ML SUSPENSION UDC PO SCH (16:23)
[2024-09-15] MEDS: SENNA 8.6 MG TAB (SENOKOT) PO SCH (16:24)
[2024-09-15] MEDS: DOCUSATE SODIUM 100MG CAPSULE PO SCH (16:24)
[2024-09-15 18:33] LABS: HEMATOCRIT 34.8 % (36.0-47.0); HEMOGLOBIN 11.1 g/dl (12.0-15.5)
[2024-09-16] VITALS (9 sets, daily range): BP systolic 93–147; BP diastolic 57–100; TEMP 97.8–99; O2SAT 96–99
[2024-09-16] MEDS ORDERED: propofoL 200 MG/20 ML VIAL As Ordered ONE (07:34)
[2024-09-16] MEDS ORDERED: LIDOCAINE 2% 100MG/5ML SDV (FOR ANES.) As Ordered ONE (07:34)
[2024-09-16] MEDS ORDERED: NON-FORMULARY 1 EA EA PO SCH (09:00)
[2024-09-16 09:29] LABS: BASO % 0.3 % (0.0-1.0); EOS # 0.4 10^3/uL (0.0-0.5); EOS % 6.5 % (0.0-3.0); HEMATOCRIT 31.8 % (36.0-47.0); HEMOGLOBIN 10.7 g/dl (12.0-15.5); LYMPH # 2.6 10^3/uL (1.5-5.0); LYMPH % 43.5 % (24.0-44.0); MEAN CORPUSCULAR HEMOGLOBIN 31.4 pg (27.0-33.0); MEAN CORPUSCULAR HGB CONC 33.6 g/dl (32.0-36.5); MEAN CORPUSCULAR VOLUME 93.3 fl (80.0-96.0); MONO # 0.5 10^3/uL (0.0-0.8); MONO % 8.4 % (2.0-8.0); NEUTROPHILS # 2.5 10^3/uL (1.5-8.5); NEUTROPHILS % 41.1 % (36.0-66.0); PLATELET COUNT, AUTOMATED 225 10^3/uL (150-450); RED BLOOD COUNT 3.41 10^6/uL (4.00-5.40)
[2024-09-16 09:51] LABS: BLOOD UREA NITROGEN 6 MG/DL (9-23); CARBON DIOXIDE LEVEL 30 MMOL/L (20-31); CHLORIDE LEVEL 110 MMOL/L (98-107); GLOMERULAR FILTRATION RATE > 60.0 (>58); GLUCOSE, FASTING 120 MG/DL (60-100); SODIUM LEVEL 142 MMOL/L (136-145)
[2024-09-16] MEDS ORDERED: dexmedeTOMIDine (4MCG/ML)200MCG/50ML BTL (PRECEDEX) As Ordered ONE (12:04)
[2024-09-16] MEDS ORDERED: ONDANSETRON 4MG 2ML VIAL As Ordered ONE (12:06)
[2024-09-16] MEDS ORDERED: GLYCOPYRROLATE INJ 0.2 MG/ML 2 ML VIAL As Ordered ONE (12:06)
[2024-09-16] MEDS ORDERED: diphenhydrAMINE 50MG/ML VIAL As Ordered ONE (12:07)
[2024-09-16] MEDS ORDERED: MIDAZOLAM INJ 2MG/2ML VIAL As Ordered ONE (12:11)
[2024-09-16] MEDS: CEFDINIR 300 MG CAP (OMNICEF) PO SCH (20:42)
[2024-09-16] MEDS: PANTOPRAZOLE 40MG TAB (PROTONIX) PO SCH (20:42)
[2024-09-17 04:00] VITALS: BP 95/59; TEMP 98.1; O2SAT 96
[2024-09-17 05:39] VITALS: BP 119/75
[2024-09-17 05:45] LABS: BASO % 0.4 % (0.0-1.0); EOS # 0.4 10^3/uL (0.0-0.5); EOS % 4.5 % (0.0-3.0); HEMATOCRIT 35.9 % (36.0-47.0); HEMOGLOBIN 11.8 g/dl (12.0-15.5); LYMPH # 2.4 10^3/uL (1.5-5.0); LYMPH % 30.1 % (24.0-44.0); MEAN CORPUSCULAR HEMOGLOBIN 30.9 pg (27.0-33.0); MEAN CORPUSCULAR HGB CONC 32.9 g/dl (32.0-36.5); MONO # 0.6 10^3/uL (0.0-0.8); MONO % 7.6 % (2.0-8.0); NEUTROPHILS # 4.5 10^3/uL (1.5-8.5); PLATELET COUNT, AUTOMATED 231 10^3/uL (150-450); RED BLOOD COUNT 3.82 10^6/uL (4.00-5.40); WHITE BLOOD COUNT 7.9 10^3/uL (4.0-10.0)
[2024-09-17 06:17] LABS: BLOOD UREA NITROGEN 8 MG/DL (9-23); CALCIUM LEVEL 9.2 MG/DL (8.5-10.1); CARBON DIOXIDE LEVEL 27 MMOL/L (20-31); CHLORIDE LEVEL 110 MMOL/L (98-107); CREATININE FOR GFR 0.77 MG/DL (0.55-1.30); GLOMERULAR FILTRATION RATE > 60.0 (>58); GLUCOSE, FASTING 79 MG/DL (60-100); POTASSIUM SERUM 4.3 MMOL/L (3.5-5.1); SODIUM LEVEL 143 MMOL/L (136-145)
[2024-09-17] MEDS ORDERED: SUCR1ORA PO (10:20)
[2024-09-17] MEDS ORDERED: PANT40TA29 PO (10:20)
[2024-09-17] MEDS ORDERED: CEFD300CAP PO (10:20)
== END 2024-09-17 11:01 | disposition home or self-care (01) | DRG 253 ==
LOC: M ED 14:07 → M ED INP 17:45 → M MSPAV 22:00
PROVIDERS: ADMIT Internal Medicine Nephrology; ATTEND Internal Medicine Nephrology
PROC: 30233N1 Transfusion of Nonautologous Red Blood Cells into Peripheral Vein, Percutaneous Approach (ICD-10-PCS; principal; 2024-09-15)
PROC: 0DJ08ZZ Inspection of Upper Intestinal Tract, Via Natural or Artificial Opening Endoscopic (ICD-10-PCS; 2024-09-16)
PROC: 0DJD8ZZ Inspection of Lower Intestinal Tract, Via Natural or Artificial Opening Endoscopic (ICD-10-PCS; 2024-09-16)
DX: K92.2 Gastrointestinal hemorrhage, unspecified (principal); G92.8 Other toxic encephalopathy; N39.0 Urinary tract infection, site not specified; B96.20 Unspecified Escherichia coli [E. coli] as the cause of diseases classified elsewhere; Z98.84 Bariatric surgery status; F32.A Depression, unspecified; F41.9 Anxiety disorder, unspecified; K21.9 Gastro-esophageal reflux disease without esophagitis; Z90.49 Acquired absence of other specified parts of digestive tract; Z87.891 Personal history of nicotine dependence; Z88.8 Allergy status to other drugs, medicaments and biological substances; Z88.1 Allergy status to other antibiotic agents; Z88.2 Allergy status to sulfonamides; Z88.5 Allergy status to narcotic agent; Z91.040 Latex allergy status; K28.9 Gastrojejunal ulcer, unspecified as acute or chronic, without hemorrhage or perforation; K59.09 Other constipation; D62 Acute posthemorrhagic anemia

== ENCOUNTER 2025-09-01 11:38 | Emergency (ER) | payer MEDICAID, OTHER ==
[~2025-09-01] VITALS: Ht 172.7 cm; Wt 59.1 kg
[~2025-09-01 11:38] MED LIST changes: +ALPR1TAB3 PO; +BUPR8SUB SL; +CEFD300CAP PO; -DIPH50CA PO; +DIPH50CA31 PO; +GABA-284 PO; -IBUP-1022 PO; -IBUP1TAB6 PO; +IBUP600T42 PO; +PANT40TA29 PO; +SFHIBU600 PO; +SUCR1ORA PO
[2025-09-01 12:46] LABS: BASO # 0.0 10^3/uL (0.0-0.2); BASO % 0.3 % (0.0-1.0); EOS # 0.0 10^3/uL (0.0-0.5); EOS % 0.4 % (0.0-3.0); LYMPH # 1.0 10^3/uL (1.5-5.0); LYMPH % 14.2 % (24.0-44.0); MONO # 0.3 10^3/uL (0.0-0.8); MONO % 4.3 % (2.0-8.0); NEUTROPHILS # 5.8 10^3/uL (1.5-8.5); NEUTROPHILS % 80.2 % (36.0-66.0); PLATELET COUNT, AUTOMATED 385 10^3/uL (150-450)
[2025-09-01] MEDS: NS (Normal Saline) 0.9% 1,000 ML IV ONE (12:57)
[2025-09-01] MEDS: KETOROLAC 30 MG/ML 1 ML VIAL IV ONE (12:57)
[2025-09-01 13:18] LABS: ALT/SGPT 22 U/L (7.0-40); AST/SGOT 21 U/L (<34); CALCIUM LEVEL 9.7 MG/DL (8.5-10.1); CARBON DIOXIDE LEVEL 28 MMOL/L (20-31); CHLORIDE LEVEL 101 MMOL/L (98-107); CREATININE FOR GFR 0.68 MG/DL (0.55-1.30); GLOMERULAR FILTRATION RATE > 90.0 (>58); POTASSIUM SERUM 4.5 MMOL/L (3.5-5.1); SODIUM LEVEL 139 MMOL/L (136-145)
[2025-09-01] MEDS ORDERED: PANT40TA29 PO (13:40)
[2025-09-01] MEDS ORDERED: HOME MED LIST COMPLETE! XX SCH (13:40)
[2025-09-01] MEDS ORDERED: ISOVUE-370 76% 100 ML VIAL As Ordered ONE (14:36)
[2025-09-01] MEDS: MORPHINE 4 MG/ML 1 ML VIAL IV PRN (15:49)
[2025-09-01 16:15] VITALS: BP 120/74; TEMP 98.8; O2SAT 99
== END 2025-09-01 16:36 | disposition home or self-care (01) ==
LOC: M ED 11:38 → EDBD 11:38 → M ED 16:36
DX: R11.2 Nausea with vomiting, unspecified (principal); R19.7 Diarrhea, unspecified; Z86.19 Personal history of other infectious and parasitic diseases; F19.10 Other psychoactive substance abuse, uncomplicated; Z98.84 Bariatric surgery status; Z79.899 Other long term (current) drug therapy; Z88.2 Allergy status to sulfonamides; Z88.5 Allergy status to narcotic agent; Z88.8 Allergy status to other drugs, medicaments and biological substances; Z91.040 Latex allergy status; Z91.02 Food additives allergy status
CPT/HCPCS: 74177; 80047; 80048; 80076; 83690; 85025; 96361; 96374; 96375; 96376; 99284; J1885; J2550; Q9967

== ENCOUNTER 2025-10-28 14:24 | Emergency (ER) | payer MEDICAID, OTHER ==
[~2025-10-28] VITALS: Ht 172.7 cm; Wt 59.4 kg
[2025-10-28 14:28] VITALS: BP 132/85; TEMP 97.7; O2SAT 98
[2025-10-28] MEDS ORDERED: XANA1TAB2 PO (15:53)
== END 2025-10-28 16:31 | disposition home or self-care (01) ==
LOC: M ED 14:24
DX: Z76.0 Encounter for issue of repeat prescription (principal); F19.10 Other psychoactive substance abuse, uncomplicated; F41.9 Anxiety disorder, unspecified; Z87.440 Personal history of urinary (tract) infections; K21.9 Gastro-esophageal reflux disease without esophagitis; Z87.442 Personal history of urinary calculi; Z98.84 Bariatric surgery status; Z87.19 Personal history of other diseases of the digestive system; Z87.59 Personal history of other complications of pregnancy, childbirth and the puerperium; Z79.899 Other long term (current) drug therapy; Z88.8 Allergy status to other drugs, medicaments and biological substances; Z88.2 Allergy status to sulfonamides; Z88.5 Allergy status to narcotic agent; Z91.040 Latex allergy status; Z91.02 Food additives allergy status